=== PATIENT | male | born 1975 | race African-American/Black ===

== ENCOUNTER 2019-11-17 22:15 | Inpatient (IN) ==
[2019-11-17] MEDS ORDERED: SODIUM CHLORIDE 0.9% 2,000 ML IV STA (22:52)
[2019-11-17] MEDS ORDERED: ONDANSETRON 4 MG/2 ML VIAL IV PRN (22:53)
[2019-11-17] MEDS ORDERED: PANTOPRAZOLE 40 MG VIAL IV SCH (23:00)
[2019-11-17] MEDS ORDERED: LEVOFLOXACIN INJ 750 MG in PREMIX 1 EACH IV STA (23:03)
[2019-11-17 23:12] LABS: Basophils % 0.6 % (0.0-0.8); Eosinophils % 0.9 % (0.00-10.9); Hematocrit 34.7 VOL% (42.0-52.0); Hemoglobin 10.9 GM/DL (14.0-18.0); Immature Granulocytes % 3.1 %; Lymphocytes # 0.5 10*3/uL (1.4-4.0); Lymphocytes % 16.7 % (21.2-54.2); Mean Corpuscular HGB Conc 31.4 GM/DL (32-36); Mean Corpuscular Volume 79.8 FL (87-102); Mean Platelet Volume 9.8 FL (9.6-12.0); Monocytes % 10.5 % (1.7-12.7); Neutrophils % 68.2 % (38.7-73.9); Platelet Count 385 T/CUMM (130-400); Red Blood Count 4.35 MC/CUMM (3.8-5.5); Red Cell Distribution Width 14.6 % (9.3-17.3); White Blood Count 3.2 T/CUMM (4-12)
[2019-11-17] MEDS: ENOXAPARIN 40 MG/0.4 ML SYRINGE SUBCUT SCH (23:15)
[2019-11-17] MEDS ORDERED: cefTRIAXone 2,000 MG in SYRINGE 1 EACH IV STA (23:21)
[2019-11-17 23:23] LABS: Alanine Aminotransferase 42 U/L (16-61); Albumin 1.4 G/DL (3.4-5.0); Alkaline Phosphatase 116 U/L (45-117); Aspartate Amino Transferase 67 U/L (0-37); Bilirubin,Total < 0.39 MG/DL (0.2-1.0); Blood Urea Nitrogen 15 MG/DL (7-18); Calcium 8.2 MG/DL (8.5-10.1); Estimated Glom Filtration Rate 115 ML/MIN; Ferritin 793.7 ng/ml (26-388); Glucose 118 MG/DL (74-106); Osmolality,Calculated 269.2 MOS/KG (273-304); Total Protein 7.1 G/DL (6.4-8.3)
[2019-11-17] MEDS ORDERED: MAGNESIUM SULF RIDER 2 GM in PREMIX 1 EACH IV ONE (23:26)
[2019-11-17 23:27] LABS: Apearance,Urine CLEAR (Clear); Bilirubin,Urine Negative (Negative); Blood, Urine Negative (Negative); Glucose,Urine (UA) Negative (Negative); Ketones,Urine Negative (Negative); Mucus,Urine Occasional /LPF (Occasional); Nitrite,Urine Negative (Negative); Protein,Urine 30 MG/DL; RBC,Urine 1 /HPF (0-4); Renal Epithelial Cells,Urine Occasional /HPF (<1); Squamous Epithelial Cell,Urine Occasional /HPF (0-10); Urine Color Yellow (Yellow); Urine Specific Gravity 1.024 (1.001-1.035); WBC,Urine 4 /HPF (0-6)
[2019-11-17 23:54] LABS: Allen Test Positive
[2019-11-17 23:55] LABS: ABG HCO3 22.6 MMOL/L (20-26); ABG Oxygen Saturation 89.3 % (95-100); ABG PH 7.444 (7.35-7.45); ABG PO2 59.4 MM HG (80-95); ABG TCO2 19.2 MMOL/L (23-27)
[2019-11-18 00:20] LABS: Hepatitis B Core IgM Quant 0.13 Index; Hepatitis B Surface Ag Quant < 0.10 Index; Hepatitis B Surface Ag Result Negative (Negative); Hepatitis C Virus Ab Quant 0.19 Index; Hepatitis C Virus Ab Result Negative (Negative)
[2019-11-18] MEDS: LACTATED RINGERS 1,000 ML IV SCH ×3 (01:02→17:45)
[2019-11-18] MEDS: ACETAMINOPHEN 325 MG TABLET PO PRN ×2 (01:10→13:29)
[2019-11-18] MEDS: POTASSIUM CHLORIDE RIDER 10 MEQ in PREMIX 1 EACH IV SCH ×4 (01:55→04:57)
[2019-11-18 05:33] LABS: Basophils % 0.4 % (0.0-0.8); Eosinophils % 0.8 % (0.00-10.9); Hematocrit 31.8 VOL% (42.0-52.0); Hemoglobin 9.9 GM/DL (14.0-18.0); Immature Granulocytes % 3.6 %; Immature Granulocytes Absolute 0.09 #; Lymphocytes # 0.3 10*3/uL (1.4-4.0); Lymphocytes % 13.4 % (21.2-54.2); Mean Corpuscular HGB Conc 31.1 GM/DL (32-36); Mean Corpuscular Volume 81.1 FL (87-102); Mean Platelet Volume 9.6 FL (9.6-12.0); Monocytes % 9.7 % (1.7-12.7); Neutrophils % 72.1 % (38.7-73.9); Platelet Count 332 T/CUMM (130-400); Red Blood Count 3.92 MC/CUMM (3.8-5.5); Red Cell Distribution Width 14.8 % (9.3-17.3); White Blood Count 2.5 T/CUMM (4-12)
[2019-11-18 05:50] LABS: Albumin 1.2 G/DL (3.4-5.0); Bilirubin,Total 0.5 MG/DL (0.2-1.0); Osmolality,Calculated 267.2 MOS/KG (273-304); Total Protein 6.3 G/DL (6.4-8.3)
[2019-11-18] MEDS ORDERED: diphenhydrAMINE CAP 50 MG CAPSULE PO PRN (07:36)
[2019-11-18] MEDS ORDERED: HALOPERIDOL 5 MG TABLET PO PRN (07:36)
[2019-11-18] MEDS ORDERED: BENZTROPINE 1 MG TABLET PO PRN (07:42)
[2019-11-18] MEDS: risperiDONE 1 MG TABLET PO SCH ×2 (08:11→20:49)
[2019-11-18] MEDS: PANTOPRAZOLE 40 MG TABLET PO SCH (08:11)
[2019-11-18] MEDS: DIVALPROEX 500 MG TABLET PO SCH ×2 (08:11→20:49)
[2019-11-18] MEDS: SULFAMETHOX/TRIMETHOPRIM 800-160 MG TABLET PO SCH ×2 (08:12→20:49)
[2019-11-18] MEDS: cefTRIAXone 1,000 MG in SYRINGE 1 EACH IV SCH (12:00)
[2019-11-18] MEDS: CLORAZEPATE 7.5 MG TABLET PO PRN (13:20)
[2019-11-18] MEDS: MORPHINE 4 MG/1 ML VIAL IV PRN ×2 (14:00→22:29)
[2019-11-18] MEDS: HALOPERIDOL 5 MG TABLET PO PRN (21:30)
[2019-11-19] MEDS: LACTATED RINGERS 1,000 ML IV SCH ×5 (00:11→23:21)
[2019-11-19] MEDS: ENOXAPARIN 40 MG/0.4 ML SYRINGE SUBCUT SCH ×2 (00:27→23:03)
[2019-11-19] MEDS: ACETAMINOPHEN 325 MG TABLET PO PRN ×3 (00:29→19:17)
[2019-11-19] MEDS: LEVOFLOXACIN INJ 750 MG in PREMIX 1 EACH IV SCH ×2 (00:32→23:21)
[2019-11-19] MEDS: LORazepam 2 MG/1 ML VIAL IV PRN (00:32)
[2019-11-19 03:46] LABS: Basophils % 0.3 % (0.0-0.8); Eosinophils % 1.1 % (0.00-10.9); Hematocrit 26.3 VOL% (42.0-52.0); Hemoglobin 8.3 GM/DL (14.0-18.0); Immature Granulocytes % 5.3 %; Immature Granulocytes Absolute 0.19 #; Lymphocytes # 0.5 10*3/uL (1.4-4.0); Lymphocytes % 13.1 % (21.2-54.2); Mean Corpuscular HGB Conc 31.6 GM/DL (32-36); Mean Corpuscular Volume 79.7 FL (87-102); Mean Platelet Volume 9.8 FL (9.6-12.0); Monocytes % 6.7 % (1.7-12.7); Neutrophils % 73.5 % (38.7-73.9); Platelet Count 272 T/CUMM (130-400); White Blood Count 3.6 T/CUMM (4-12)
[2019-11-19 04:16] LABS: Alanine Aminotransferase 25 U/L (16-61); Alkaline Phosphatase 88 U/L (45-117); Aspartate Amino Transferase 47 U/L (0-37); Bilirubin,Total < 0.39 MG/DL (0.2-1.0); Blood Urea Nitrogen 11 MG/DL (7-18); Calcium 7.8 MG/DL (8.5-10.1); Estimated Glom Filtration Rate 134 ML/MIN; Glucose 109 MG/DL (74-106); Osmolality,Calculated 269.1 MOS/KG (273-304); Total Protein 5.6 G/DL (6.4-8.3)
[2019-11-19 04:44] LABS: Band Neutrophils 1 % (0-10); Eosinophils 1 % (0-10); Hypochromasia 1+; Lymphocytes 13 % (20-55); Platelet Estimate Normal; Segmented Neutrophils 80 % (50-85); Total Cells Counted 100
[2019-11-19 04:45] LABS: Ovalocytes 1+; Polychromasia Few
[2019-11-19] MEDS: risperiDONE 1 MG TABLET PO SCH ×2 (08:00→21:00)
[2019-11-19] MEDS: DIVALPROEX 500 MG TABLET PO SCH ×2 (08:00→21:00)
[2019-11-19] MEDS: PANTOPRAZOLE 40 MG TABLET PO SCH (08:00)
[2019-11-19] MEDS: SULFAMETHOX/TRIMETHOPRIM 800-160 MG TABLET PO SCH ×2 (08:00→21:00)
[2019-11-19] MEDS: CLORAZEPATE 7.5 MG TABLET PO PRN ×2 (09:12→21:00)
[2019-11-19] MEDS: MORPHINE 4 MG/1 ML VIAL IV PRN ×2 (09:45→21:07)
[2019-11-19] MEDS: cefTRIAXone 1,000 MG in SYRINGE 1 EACH IV SCH (12:53)
[2019-11-19] MEDS ORDERED: cefTRIAXone 1,000 MG in SYRINGE 1 EACH IV ONE (16:00)
[2019-11-19 16:46] LABS: % CD4 (T Cells) 3 % (32-64); % CD8 (T Cells) 68 % (13-40); 4/8 Ratio 0.1 (>=0.9)
[2019-11-19 17:35] LABS: % Iron Saturation 5.4 % (18-50)
[2019-11-19] MEDS: ZINC GLUCONATE 50 MG TABLET PO SCH (17:56)
[2019-11-19] MEDS: BIKTARVY PO SCH (21:00)
[2019-11-19] MEDS: MONTELUKAST 10 MG TABLET PO SCH (21:00)
[2019-11-19] MEDS: HALOPERIDOL 5 MG TABLET PO PRN (21:00)
[2019-11-19] MEDS: FERROUS SULFATE 325 MG TABLET PO SCH (21:00)
[2019-11-19] MEDS ORDERED: IBUPROFEN 600 MG TABLET PO ONE (22:00)
[2019-11-19] MEDS ORDERED: ACETAMINOPHEN 325 MG TABLET PO ONE (22:01)
[2019-11-20] MEDS: NOREPINEPHRINE 8 MG in SODIUM CHLORIDE 0.9% 242 ML IV PRN (03:43)
[2019-11-20 06:25] LABS: Basophils % 0.3 % (0.0-0.8); Eosinophils % 0.5 % (0.00-10.9); Hematocrit 28.2 VOL% (42.0-52.0); Hemoglobin 8.9 GM/DL (14.0-18.0); Immature Granulocytes Absolute 0.27 #; Lymphocytes # 0.4 10*3/uL (1.4-4.0); Lymphocytes % 10.1 % (21.2-54.2); Mean Corpuscular HGB Conc 31.6 GM/DL (32-36); Mean Corpuscular Volume 81.3 FL (87-102); Mean Platelet Volume 9.3 FL (9.6-12.0); Monocytes % 7.8 % (1.7-12.7); Neutrophils % 74.3 % (38.7-73.9); Platelet Count 281 T/CUMM (130-400); Red Blood Count 3.47 MC/CUMM (3.8-5.5); White Blood Count 3.9 T/CUMM (4-12)
[2019-11-20] MEDS: LACTATED RINGERS 1,000 ML IV SCH ×4 (06:37→18:09)
[2019-11-20 06:40] LABS: INR 1.3; PT Patient Result 13.5 SECS (9.8-11.9)
[2019-11-20 06:55] LABS: Triglycerides 96 MG/DL (2-150); Troponin I < 0.015 NG/ML (0.00-0.045)
[2019-11-20 06:56] LABS: Alanine Aminotransferase 21 U/L (16-61); Alkaline Phosphatase 90 U/L (45-117); Aspartate Amino Transferase 40 U/L (0-37); Bilirubin,Total < 0.39 MG/DL (0.2-1.0); Blood Urea Nitrogen 9 MG/DL (7-18); Calcium 8.5 MG/DL (8.5-10.1); Estimated Glom Filtration Rate 161 ML/MIN; Glucose 93 MG/DL (74-106); Total Protein 5.6 G/DL (6.4-8.3)
[2019-11-20 07:39] LABS: Sedimentation Rate-Westergren 121 MM/HR (0-15)
[2019-11-20 07:46] LABS: Folate 7.8 NG/ML (5.4-24.0)
[2019-11-20] MEDS: risperiDONE 1 MG TABLET PO SCH ×2 (08:10→14:42)
[2019-11-20] MEDS: ZINC GLUCONATE 50 MG TABLET PO SCH (08:10)
[2019-11-20] MEDS: PANTOPRAZOLE 40 MG TABLET PO SCH (08:10)
[2019-11-20] MEDS: SULFAMETHOX/TRIMETHOPRIM 800-160 MG TABLET PO SCH ×2 (08:10→20:42)
[2019-11-20] MEDS: DIVALPROEX 500 MG TABLET PO SCH ×2 (08:10→20:42)
[2019-11-20] MEDS: MONTELUKAST 10 MG TABLET PO SCH ×2 (08:10→20:42)
[2019-11-20] MEDS: FERROUS SULFATE 325 MG TABLET PO SCH ×2 (08:11→20:42)
[2019-11-20] MEDS ORDERED: cefTRIAXone 2,000 MG in SYRINGE 1 EACH IV SCH (09:00)
[2019-11-20 11:42] LABS: Lymphocytes 9 % (20-55); Polychromasia Few; Segmented Neutrophils 86 % (50-85); Total Cells Counted 100
[2019-11-20 11:44] LABS: Macrocytosis 1+; Microcytosis 1+; Platelet Estimate Adequate
[2019-11-20] MEDS: ACETAMINOPHEN 325 MG TABLET PO PRN (14:38)
[2019-11-20] MEDS: MORPHINE 4 MG/1 ML VIAL IV PRN (14:49)
[2019-11-20] MEDS ORDERED: IBUPROFEN 600 MG TABLET PO ONE (15:16)
[2019-11-20] MEDS: LORazepam 2 MG/1 ML VIAL IV PRN (15:26)
[2019-11-20] MEDS ORDERED: FUROSEMIDE 20 MG/2 ML VIAL IV ONE (15:30)
[2019-11-20] MEDS: BIKTARVY PO SCH (20:42)
[2019-11-20] MEDS: CLORAZEPATE 7.5 MG TABLET PO SCH (22:08)
[2019-11-20] MEDS: IBUPROFEN 600 MG TABLET PO SCH (22:11)
[2019-11-20] MEDS: LEVOFLOXACIN INJ 750 MG in PREMIX 1 EACH IV SCH (22:23)
[2019-11-20] MEDS: ENOXAPARIN 40 MG/0.4 ML SYRINGE SUBCUT SCH (22:23)
[2019-11-21 04:42] LABS: Basophils % 0.2 % (0.0-0.8); Eosinophils # 0.1 10*3/uL (0.0-0.87); Hematocrit 32.3 VOL% (42.0-52.0); Hemoglobin 9.6 GM/DL (14.0-18.0); Immature Granulocytes % 7.1 %; Immature Granulocytes Absolute 0.33 #; Lymphocytes # 0.5 10*3/uL (1.4-4.0); Lymphocytes % 11.4 % (21.2-54.2); Mean Corpuscular HGB Conc 29.7 GM/DL (32-36); Mean Corpuscular Volume 83.9 FL (87-102); Mean Platelet Volume 9.6 FL (9.6-12.0); Monocytes % 4.7 % (1.7-12.7); Neutrophils % 73.6 % (38.7-73.9); Platelet Count 289 T/CUMM (130-400); Red Blood Count 3.85 MC/CUMM (3.8-5.5); Red Cell Distribution Width 15.4 % (9.3-17.3); White Blood Count 4.6 T/CUMM (4-12)
[2019-11-21] MEDS: CLORAZEPATE 7.5 MG TABLET PO SCH ×3 (04:46→20:15)
[2019-11-21] MEDS: NOREPINEPHRINE 8 MG in SODIUM CHLORIDE 0.9% 242 ML IV PRN (05:15)
[2019-11-21] MEDS: IBUPROFEN 600 MG TABLET PO SCH ×3 (06:00→22:35)
[2019-11-21 06:02] LABS: Eosinophils 5 % (0-10); Lymphocytes 11 % (20-55); Segmented Neutrophils 78 % (50-85); Total Cells Counted 100
[2019-11-21 06:03] LABS: Anisocytosis 1+; Ovalocytes 1+; Platelet Estimate Normal
[2019-11-21] MEDS: LACTATED RINGERS 1,000 ML IV SCH ×4 (07:08→20:28)
[2019-11-21 07:10] LABS: Alanine Aminotransferase 15 U/L (16-61); Albumin 0.9 G/DL (3.4-5.0); Alkaline Phosphatase 80 U/L (45-117); Aspartate Amino Transferase 36 U/L (0-37); Bilirubin,Total < 0.39 MG/DL (0.2-1.0); Blood Urea Nitrogen 9 MG/DL (7-18); Calcium 8.7 MG/DL (8.5-10.1); Estimated Glom Filtration Rate 161 ML/MIN; Glucose 97 MG/DL (74-106); Osmolality,Calculated 271.8 MOS/KG (273-304); Total Protein 5.3 G/DL (6.4-8.3)
[2019-11-21] MEDS: MONTELUKAST 10 MG TABLET PO SCH ×2 (08:38→20:16)
[2019-11-21] MEDS: SULFAMETHOX/TRIMETHOPRIM 800-160 MG TABLET PO SCH ×2 (08:38→20:15)
[2019-11-21] MEDS: FERROUS SULFATE 325 MG TABLET PO SCH ×2 (08:38→20:15)
[2019-11-21] MEDS: PANTOPRAZOLE 40 MG TABLET PO SCH (08:38)
[2019-11-21] MEDS: ZINC GLUCONATE 50 MG TABLET PO SCH (08:38)
[2019-11-21] MEDS: BIKTARVY PO SCH (08:38)
[2019-11-21] MEDS: DIVALPROEX 500 MG TABLET PO SCH ×2 (08:38→20:15)
[2019-11-21] MEDS: LORazepam 2 MG/1 ML VIAL IV PRN (15:49)
[2019-11-21] MEDS ORDERED: POTASSIUM CHLORIDE 20 MEQ TABLET PO ONE (16:55)
[2019-11-21] MEDS: ACETAMINOPHEN 325 MG TABLET PO PRN (17:25)
[2019-11-21] MEDS: ENOXAPARIN 40 MG/0.4 ML SYRINGE SUBCUT SCH (22:35)
[2019-11-21] MEDS: MORPHINE 4 MG/1 ML VIAL IV PRN (22:35)
[2019-11-21] MEDS: LEVOFLOXACIN INJ 750 MG in PREMIX 1 EACH IV SCH (22:45)
[2019-11-22] MEDS ORDERED: ETOMIDATE 20 MG/10 ML VIAL IV ONE ×4 (02:24→08:58)
[2019-11-22] MEDS ORDERED: SUCCINYLCHOLINE 200 MG/10 ML VIAL ONE ×2 (02:24→07:10)
[2019-11-22 02:30] LABS: ABG Base Excess 2.7 MMOL/L (-2.5-2.5); ABG HCO3 26.7 MMOL/L (20-26); ABG Oxygen Saturation 89.2 % (95-100); ABG PCO2 35.6 MM HG (35-48); ABG PH 7.474 (7.35-7.45); ABG PO2 55.9 MM HG (80-95); ABG TCO2 23.9 MMOL/L (23-27); Allen Test Positive; Pt O2 Delivery Device Other
[2019-11-22] MEDS: MORPHINE 4 MG/1 ML VIAL IV PRN (03:40)
[2019-11-22] MEDS: LORazepam 2 MG/1 ML VIAL IV PRN ×4 (03:50→19:56)
[2019-11-22] MEDS ORDERED: LORazepam 2 MG/1 ML VIAL IV ONE (05:00)
[2019-11-22] MEDS: CLORAZEPATE 7.5 MG TABLET PO SCH (05:20)
[2019-11-22] MEDS: IBUPROFEN 600 MG TABLET PO SCH ×3 (06:05→23:45)
[2019-11-22 06:11] LABS: Basophils % 0.1 % (0.0-0.8); Eosinophils # 0.2 10*3/uL (0.0-0.87); Eosinophils % 2.3 % (0.00-10.9); Hematocrit 33.2 VOL% (42.0-52.0); Hemoglobin 10.3 GM/DL (14.0-18.0); Immature Granulocytes % 6.8 %; Immature Granulocytes Absolute 0.48 #; Lymphocytes # 0.4 10*3/uL (1.4-4.0); Lymphocytes % 5.9 % (21.2-54.2); Mean Corpuscular Volume 80.6 FL (87-102); Neutrophils % 81.9 % (38.7-73.9); Platelet Count 318 T/CUMM (130-400); Red Blood Count 4.12 MC/CUMM (3.8-5.5); Red Cell Distribution Width 15.7 % (9.3-17.3); White Blood Count 7.1 T/CUMM (4-12)
[2019-11-22 06:35] LABS: Alanine Aminotransferase 16 U/L (16-61); Albumin 0.9 G/DL (3.4-5.0); Alkaline Phosphatase 106 U/L (45-117); Aspartate Amino Transferase 49 U/L (0-37); Blood Urea Nitrogen 10 MG/DL (7-18); Calcium 8.8 MG/DL (8.5-10.1); Estimated Glom Filtration Rate 140 ML/MIN; Ferritin 950.3 ng/ml (26-388); Glucose 78 MG/DL (74-106); Total Protein 5.8 G/DL (6.4-8.3); Triglycerides 93 MG/DL (2-150); Troponin I < 0.015 NG/ML (0.00-0.045)
[2019-11-22 06:54] LABS: INR 1.2; PT Patient Result 12.7 SECS (9.8-11.9)
[2019-11-22 07:36] LABS: Sedimentation Rate-Westergren 110 MM/HR (0-15)
[2019-11-22] MEDS: ZINC GLUCONATE 50 MG TABLET PO SCH (08:14)
[2019-11-22] MEDS: SULFAMETHOX/TRIMETHOPRIM 800-160 MG TABLET PO SCH ×2 (08:14→20:04)
[2019-11-22] MEDS: PANTOPRAZOLE 40 MG TABLET PO SCH (08:14)
[2019-11-22] MEDS: MONTELUKAST 10 MG TABLET PO SCH ×2 (08:14→20:04)
[2019-11-22] MEDS ORDERED: SUCCINYLCHOLINE 200 MG/10 ML VIAL IV ONE ×2 (08:15→08:57)
[2019-11-22] MEDS: DIVALPROEX 500 MG TABLET PO SCH ×2 (08:16→20:04)
[2019-11-22] MEDS: FERROUS SULFATE 325 MG TABLET PO SCH ×2 (08:17→20:04)
[2019-11-22] MEDS: BIKTARVY PO SCH (08:17)
[2019-11-22 08:24] LABS: Band Neutrophils 19 % (0-10); Eosinophils 5 % (0-10); Lymphocytes 4 % (20-55); Segmented Neutrophils 70 % (50-85); Total Cells Counted 100
[2019-11-22 08:25] LABS: Anisocytosis 2+; Burr Cells 1+; Macrocytosis Slight; Ovalocytes Few; Platelet Estimate Normal
[2019-11-22 09:56] LABS: ABG Base Excess -0.5 MMOL/L (-2.5-2.5); ABG HCO3 23.9 MMOL/L (20-26); ABG Oxygen Saturation 89.1 % (95-100); ABG PCO2 48.3 MM HG (35-48); ABG PH 7.335 (7.35-7.45); ABG PO2 64.8 MM HG (80-95); ABG TCO2 23.7 MMOL/L (23-27)
[2019-11-22] MEDS: LACTATED RINGERS 1,000 ML IV SCH ×2 (12:00→21:28)
[2019-11-22 12:53] LABS: ABG Base Excess 1.1 MMOL/L (-2.5-2.5); ABG HCO3 25.4 MMOL/L (20-26); ABG Oxygen Saturation 97.7 % (95-100); ABG TCO2 23.8 MMOL/L (23-27); Allen Test Positive; Pt O2 Delivery Device Ventilator
[2019-11-22] MEDS ORDERED: LACTATED RINGERS 1,000 ML IV ONE (18:50)
[2019-11-22] MEDS: ALBUTEROL/IPRATROPIUM 3 ML NEB RESP TX SCH (19:35)
[2019-11-22] MEDS: MIDAZOLAM 100 MG in SODIUM CHLORIDE 0.9% 80 ML IV PRN (20:50)
[2019-11-22] MEDS ORDERED: MIDAZOLAM 2 MG/2 ML VIAL IV ONE (21:36)
[2019-11-22] MEDS: ROCURONIUM 500 MG in SODIUM CHLORIDE 0.9% 500 ML IV PRN (22:20)
[2019-11-22] MEDS: LEVOFLOXACIN INJ 750 MG in PREMIX 1 EACH IV SCH (23:15)
[2019-11-22] MEDS: ENOXAPARIN 40 MG/0.4 ML SYRINGE SUBCUT SCH (23:45)
[2019-11-23] MEDS: ALBUTEROL/IPRATROPIUM 3 ML NEB RESP TX SCH ×4 (01:48→19:49)
[2019-11-23 04:04] LABS: Basophils % 0.2 % (0.0-0.8); Eosinophils # 0.2 10*3/uL (0.0-0.87); Eosinophils % 4.6 % (0.00-10.9); Hematocrit 26.2 VOL% (42.0-52.0); Immature Granulocytes % 6.9 %; Lymphocytes # 0.3 10*3/uL (1.4-4.0); Lymphocytes % 6.5 % (21.2-54.2); Mean Corpuscular HGB Conc 30.5 GM/DL (32-36); Mean Corpuscular Volume 80.9 FL (87-102); Mean Platelet Volume 9.4 FL (9.6-12.0); Monocytes % 4.2 % (1.7-12.7); Neutrophils % 77.6 % (38.7-73.9); Platelet Count 288 T/CUMM (130-400); Red Blood Count 3.24 MC/CUMM (3.8-5.5); Red Cell Distribution Width 15.7 % (9.3-17.3); White Blood Count 4.3 T/CUMM (4-12)
[2019-11-23 04:29] LABS: Alanine Aminotransferase 11 U/L (16-61); Albumin 0.8 G/DL (3.4-5.0); Alkaline Phosphatase 97 U/L (45-117); Aspartate Amino Transferase 45 U/L (0-37); Bilirubin,Total < 0.39 MG/DL (0.2-1.0); Blood Urea Nitrogen 15 MG/DL (7-18); Calcium 8.6 MG/DL (8.5-10.1); Estimated Glom Filtration Rate 133 ML/MIN; Glucose 85 MG/DL (74-106); Osmolality,Calculated 276.5 MOS/KG (273-304); Total Protein 5.2 G/DL (6.4-8.3)
[2019-11-23 04:46] LABS: ABG Base Excess -0.2 MMOL/L (-2.5-2.5); ABG HCO3 24.5 MMOL/L (20-26); ABG PCO2 39.9 MM HG (35-48); ABG PH 7.406 (7.35-7.45); ABG PO2 121.4 MM HG (80-95); ABG TCO2 25.7 MMOL/L (23-27)
[2019-11-23 04:47] LABS: Allen Test Positive; Pt O2 Delivery Device Ventilator
[2019-11-23 04:49] LABS: Eosinophils 1 % (0-10); Lymphocytes 9 % (20-55); Segmented Neutrophils 84 % (50-85); Total Cells Counted 100
[2019-11-23 04:50] LABS: Anisocytosis 1+; Ovalocytes 1+; Platelet Estimate Normal
[2019-11-23] MEDS: IBUPROFEN 600 MG TABLET PO SCH (06:21)
[2019-11-23] MEDS: NOREPINEPHRINE 8 MG in SODIUM CHLORIDE 0.9% 242 ML IV PRN (06:25)
[2019-11-23] MEDS: BIKTARVY PO SCH (08:00)
[2019-11-23] MEDS: OMEPRAZOLE ODT 20 MG TABLET NG SCH (08:01)
[2019-11-23] MEDS: FERROUS SULFATE 325 MG TABLET PO SCH ×2 (08:01→20:15)
[2019-11-23] MEDS: DIVALPROEX 500 MG TABLET PO SCH ×2 (08:01→20:15)
[2019-11-23] MEDS: SULFAMETHOX/TRIMETHOPRIM 800-160 MG TABLET PO SCH ×2 (08:01→20:15)
[2019-11-23] MEDS: MONTELUKAST 10 MG TABLET PO SCH ×2 (08:01→20:15)
[2019-11-23] MEDS: ZINC GLUCONATE 50 MG TABLET PO SCH (08:01)
[2019-11-23] MEDS ORDERED: IBUPROFEN 600 MG TABLET PO PRN (09:15)
[2019-11-23] MEDS: INSULIN LISPRO 100 UNIT/ML SUBCUT SCH ×2 (11:45→18:13)
[2019-11-23] MEDS: LACTATED RINGERS 1,000 ML IV SCH (13:56)
[2019-11-23] MEDS: MIDAZOLAM 100 MG in SODIUM CHLORIDE 0.9% 80 ML IV PRN (13:57)
[2019-11-23] MEDS: ROCURONIUM 500 MG in SODIUM CHLORIDE 0.9% 500 ML IV PRN (22:18)
[2019-11-23] MEDS: LEVOFLOXACIN INJ 750 MG in PREMIX 1 EACH IV SCH (23:50)
[2019-11-23] MEDS: ENOXAPARIN 40 MG/0.4 ML SYRINGE SUBCUT SCH (23:55)
[2019-11-24] MEDS: INSULIN LISPRO 100 UNIT/ML SUBCUT SCH ×4 (00:41→17:45)
[2019-11-24] MEDS: LACTATED RINGERS 1,000 ML IV SCH ×3 (01:20→14:33)
[2019-11-24] MEDS: ALBUTEROL/IPRATROPIUM 3 ML NEB RESP TX SCH ×4 (01:48→19:30)
[2019-11-24 03:56] LABS: ABG Base Excess -0.4 MMOL/L (-2.5-2.5); ABG HCO3 24.1 MMOL/L (20-26); ABG Oxygen Saturation 99.5 % (95-100); ABG PCO2 46.5 MM HG (35-48); ABG PH 7.346 (7.35-7.45); ABG TCO2 23.9 MMOL/L (23-27); Allen Test Positive; Pt O2 Delivery Device Ventilator
[2019-11-24 06:05] LABS: Eosinophils # 0.2 10*3/uL (0.0-0.87); Eosinophils % 4.1 % (0.00-10.9); Hemoglobin 7.6 GM/DL (14.0-18.0); Immature Granulocytes % 4.6 %; Immature Granulocytes Absolute 0.18 #; Lymphocytes # 0.3 10*3/uL (1.4-4.0); Lymphocytes % 7.7 % (21.2-54.2); Mean Corpuscular HGB Conc 30.4 GM/DL (32-36); Mean Corpuscular Volume 83.3 FL (87-102); Mean Platelet Volume 9.9 FL (9.6-12.0); Monocytes % 4.8 % (1.7-12.7); Neutrophils % 78.8 % (38.7-73.9); Platelet Count 260 T/CUMM (130-400); Red Cell Distribution Width 16.1 % (9.3-17.3); White Blood Count 3.9 T/CUMM (4-12)
[2019-11-24 06:19] LABS: PT Patient Result 11.2 SECS (9.8-11.9)
[2019-11-24 06:27] LABS: Band Neutrophils 1 % (0-10); Eosinophils 5 % (0-10); Lymphocytes 7 % (20-55); Segmented Neutrophils 83 % (50-85); Total Cells Counted 100
[2019-11-24 06:28] LABS: Alanine Aminotransferase 12 U/L (16-61); Albumin 0.8 G/DL (3.4-5.0); Alkaline Phosphatase 94 U/L (45-117); Aspartate Amino Transferase 35 U/L (0-37); Blood Urea Nitrogen 17 MG/DL (7-18); Calcium 8.6 MG/DL (8.5-10.1); Estimated Glom Filtration Rate 109 ML/MIN; Ferritin 696.3 ng/ml (26-388); Glucose 94 MG/DL (74-106); Hypochromasia 2+; Osmolality,Calculated 282.3 MOS/KG (273-304); Ovalocytes Slight; Platelet Estimate Adequate; Total Protein 5.1 G/DL (6.4-8.3); Troponin I < 0.015 NG/ML (0.00-0.045)
[2019-11-24 07:19] LABS: Sedimentation Rate-Westergren 132 MM/HR (0-15)
[2019-11-24] MEDS: ZINC GLUCONATE 50 MG TABLET PO SCH (08:02)
[2019-11-24] MEDS: DIVALPROEX 500 MG TABLET PO SCH ×2 (08:02→20:30)
[2019-11-24] MEDS: FERROUS SULFATE 325 MG TABLET PO SCH ×2 (08:03→20:30)
[2019-11-24] MEDS: MONTELUKAST 10 MG TABLET PO SCH ×2 (08:03→20:30)
[2019-11-24] MEDS: OMEPRAZOLE ODT 20 MG TABLET NG SCH (08:03)
[2019-11-24] MEDS: SULFAMETHOX/TRIMETHOPRIM 800-160 MG TABLET PO SCH ×2 (08:03→20:30)
[2019-11-24] MEDS: BIKTARVY PO SCH (08:03)
[2019-11-24] MEDS: HEPARIN DRIP 25,000 UNITS/500 ML PREMIX IV SCH (08:51)
[2019-11-24] MEDS: MIDAZOLAM 100 MG in SODIUM CHLORIDE 0.9% 80 ML IV PRN (08:57)
[2019-11-24] MEDS ORDERED: HEPARIN 5,000 UNIT/1 ML VIAL IV ONE (22:30)
[2019-11-24] MEDS: LEVOFLOXACIN INJ 750 MG in PREMIX 1 EACH IV SCH (23:04)
[2019-11-24] MEDS: ROCURONIUM 500 MG in SODIUM CHLORIDE 0.9% 500 ML IV PRN (23:45)
[2019-11-25] MEDS: INSULIN LISPRO 100 UNIT/ML SUBCUT SCH ×5 (00:23→23:31)
[2019-11-25] MEDS: ALBUTEROL/IPRATROPIUM 3 ML NEB RESP TX SCH ×4 (01:20→19:42)
[2019-11-25] MEDS: LACTATED RINGERS 1,000 ML IV SCH ×2 (03:18→16:49)
[2019-11-25 04:13] LABS: ABG Base Excess 1.1 MMOL/L (-2.5-2.5); ABG HCO3 25.4 MMOL/L (20-26); ABG PCO2 46.7 MM HG (35-48); ABG PH 7.366 (7.35-7.45); ABG TCO2 25.1 MMOL/L (23-27); Allen Test Positive; Pt O2 Delivery Device Ventilator
[2019-11-25 04:34] LABS: Basophils % 0.2 % (0.0-0.8); Eosinophils # 0.2 10*3/uL (0.0-0.87); Eosinophils % 3.5 % (0.00-10.9); Hematocrit 24.7 VOL% (42.0-52.0); Hemoglobin 7.3 GM/DL (14.0-18.0); Immature Granulocytes % 7.5 %; Immature Granulocytes Absolute 0.36 #; Lymphocytes # 0.4 10*3/uL (1.4-4.0); Lymphocytes % 9.1 % (21.2-54.2); Mean Corpuscular HGB Conc 29.6 GM/DL (32-36); Mean Platelet Volume 10.2 FL (9.6-12.0); Monocytes % 7.5 % (1.7-12.7); NRBC # 0.03 10*3/uL; Neutrophils % 72.2 % (38.7-73.9); Platelet Count 261 T/CUMM (130-400); Red Blood Count 2.94 MC/CUMM (3.8-5.5); White Blood Count 4.8 T/CUMM (4-12)
[2019-11-25 04:43] LABS: Alanine Aminotransferase 14 U/L (16-61); Albumin 0.8 G/DL (3.4-5.0); Alkaline Phosphatase 107 U/L (45-117); Aspartate Amino Transferase 45 U/L (0-37); Bilirubin,Total < 0.39 MG/DL (0.2-1.0); Blood Urea Nitrogen 19 MG/DL (7-18); Calcium 8.9 MG/DL (8.5-10.1); Estimated Glom Filtration Rate 109 ML/MIN; Glucose 89 MG/DL (74-106); Osmolality,Calculated 277.5 MOS/KG (273-304); Total Protein 5.6 G/DL (6.4-8.3)
[2019-11-25 05:05] LABS: Band Neutrophils 2 % (0-10); Hypochromasia 2+; Lymphocytes 11 % (20-55); Microcytosis Slight; Platelet Estimate Adequate; Segmented Neutrophils 82 % (50-85); Total Cells Counted 100
[2019-11-25 05:06] LABS: Ovalocytes Slight
[2019-11-25] MEDS ORDERED: HEPARIN 5,000 UNIT/1 ML VIAL IV ONE ×2 (05:29→18:46)
[2019-11-25] MEDS: MIDAZOLAM 100 MG in SODIUM CHLORIDE 0.9% 80 ML IV PRN (06:43)
[2019-11-25] MEDS: SULFAMETHOX/TRIMETHOPRIM 800-160 MG TABLET PO SCH (08:15)
[2019-11-25] MEDS: BIKTARVY PO SCH (08:15)
[2019-11-25] MEDS: OMEPRAZOLE ODT 20 MG TABLET NG SCH (08:15)
[2019-11-25] MEDS: MONTELUKAST 10 MG TABLET PO SCH ×2 (08:15→21:39)
[2019-11-25] MEDS: ZINC GLUCONATE 50 MG TABLET PO SCH (08:15)
[2019-11-25] MEDS: FERROUS SULFATE 325 MG TABLET PO SCH ×2 (08:15→21:39)
[2019-11-25] MEDS: DIVALPROEX 500 MG TABLET PO SCH (08:15)
[2019-11-25] MEDS: HEPARIN DRIP 25,000 UNITS/500 ML PREMIX IV SCH (09:26)
[2019-11-25] MEDS ORDERED: SODIUM CHLORIDE 0.9% 1,000 ML IV PRN (09:39)
[2019-11-25] MEDS: FLUCONAZOLE INJ 400 MG in PREMIX 1 EACH IV SCH (10:49)
[2019-11-25] MEDS ORDERED: methylPREDNISolone SOD SUC 40 MG/1 ML VIAL IV SCH (14:00)
[2019-11-25] MEDS: DEXTROSE 5% IV SCH ×2 (14:10→19:38)
[2019-11-25] MEDS: SULFAMETH IV SCH ×2 (14:10→19:38)
[2019-11-25] MEDS: TRIMETH IV SCH ×2 (14:10→19:38)
[2019-11-25] MEDS: ROCURONIUM 500 MG in SODIUM CHLORIDE 0.9% 500 ML IV PRN (18:50)
[2019-11-25] MEDS: VALPROIC ACID 250 MG/5 ML UDCUP PO SCH (22:50)
[2019-11-25] MEDS: LEVOFLOXACIN INJ 750 MG in PREMIX 1 EACH IV SCH (23:10)
[2019-11-26] MEDS: TRIMETH IV SCH ×4 (01:45→18:33)
[2019-11-26] MEDS: DEXTROSE 5% IV SCH ×4 (01:45→18:33)
[2019-11-26] MEDS: SULFAMETH IV SCH ×4 (01:45→18:33)
[2019-11-26] MEDS: ALBUTEROL/IPRATROPIUM 3 ML NEB RESP TX SCH ×2 (01:50→11:11)
[2019-11-26] MEDS: VALPROIC ACID 250 MG/5 ML UDCUP PO SCH ×4 (03:42→20:10)
[2019-11-26 04:32] LABS: ABG Base Excess 0.4 MMOL/L (-2.5-2.5); ABG HCO3 24.8 MMOL/L (20-26); ABG Oxygen Saturation 98.8 % (95-100); ABG PCO2 39.5 MM HG (35-48); ABG PH 7.409 (7.35-7.45); ABG TCO2 23.1 MMOL/L (23-27); Allen Test Positive; Pt O2 Delivery Device Ventilator
[2019-11-26 04:51] LABS: Basophils % 0.4 % (0.0-0.8); Hematocrit 27.5 VOL% (42.0-52.0); Hemoglobin 8.3 GM/DL (14.0-18.0); Immature Granulocytes % 10.8 %; Immature Granulocytes Absolute 0.55 #; Lymphocytes # 0.4 10*3/uL (1.4-4.0); Lymphocytes % 8.4 % (21.2-54.2); Mean Corpuscular HGB Conc 30.2 GM/DL (32-36); Mean Corpuscular Volume 83.8 FL (87-102); Mean Platelet Volume 10.1 FL (9.6-12.0); NRBC # 0.06 10*3/uL; Neutrophils % 69.4 % (38.7-73.9); Platelet Count 237 T/CUMM (130-400); Red Blood Count 3.28 MC/CUMM (3.8-5.5); Red Cell Distribution Width 16.4 % (9.3-17.3); White Blood Count 5.1 T/CUMM (4-12)
[2019-11-26] MEDS: MIDAZOLAM 100 MG in SODIUM CHLORIDE 0.9% 80 ML IV PRN (05:10)
[2019-11-26 05:14] LABS: Band Neutrophils 2 % (0-10); Lymphocytes 12 % (20-55); Nucleated Red Blood Cells 3 (0-5); Platelet Estimate Adequate; Segmented Neutrophils 78 % (50-85); Total Cells Counted 100
[2019-11-26 05:15] LABS: Hypochromasia 1+; Microcytosis Slight; Ovalocytes Slight
[2019-11-26 05:19] LABS: Osmolality,Calculated 287.1 MOS/KG (273-304)
[2019-11-26] MEDS: INSULIN LISPRO 100 UNIT/ML SUBCUT SCH ×3 (05:37→18:01)
[2019-11-26] MEDS: HEPARIN DRIP 25,000 UNITS/500 ML PREMIX IV SCH (06:39)
[2019-11-26] MEDS: LACTATED RINGERS 1,000 ML IV SCH (09:10)
[2019-11-26] MEDS: BIKTARVY PO SCH (09:23)
[2019-11-26] MEDS: OMEPRAZOLE ODT 20 MG TABLET NG SCH (09:24)
[2019-11-26] MEDS: FERROUS SULFATE 325 MG TABLET PO SCH ×2 (09:24→20:10)
[2019-11-26] MEDS: ZINC GLUCONATE 50 MG TABLET PO SCH (09:24)
[2019-11-26] MEDS: MONTELUKAST 10 MG TABLET PO SCH ×2 (09:24→20:10)
[2019-11-26] MEDS ORDERED: SODIUM CHLORIDE 0.9% 1,000 ML IV PRN (09:27)
[2019-11-26] MEDS: FLUCONAZOLE INJ 400 MG in PREMIX 1 EACH IV SCH (10:44)
[2019-11-26] MEDS: ALBUTEROL INHALER 18 GM INH SCH ×3 (16:30→20:10)
[2019-11-27] MEDS: INSULIN LISPRO 100 UNIT/ML SUBCUT SCH ×4 (00:12→17:10)
[2019-11-27] MEDS: ALBUTEROL INHALER 18 GM INH SCH ×4 (00:15→19:58)
[2019-11-27] MEDS: LACTATED RINGERS 1,000 ML IV SCH ×2 (01:02→08:14)
[2019-11-27] MEDS: TRIMETH IV SCH ×4 (01:04→18:45)
[2019-11-27] MEDS: DEXTROSE 5% IV SCH ×4 (01:04→18:45)
[2019-11-27] MEDS: SULFAMETH IV SCH ×4 (01:04→18:45)
[2019-11-27] MEDS: HEPARIN DRIP 25,000 UNITS/500 ML PREMIX IV SCH ×3 (01:52→19:55)
[2019-11-27] MEDS: VALPROIC ACID 250 MG/5 ML UDCUP PO SCH ×4 (03:45→20:12)
[2019-11-27 04:48] LABS: Allen Test Positive; Pt O2 Delivery Device Ventilator
[2019-11-27 04:50] LABS: ABG Base Excess -1.1 MMOL/L (-2.5-2.5); ABG HCO3 23.4 MMOL/L (20-26); ABG PCO2 38.7 MM HG (35-48); ABG PH 7.399 (7.35-7.45); ABG PO2 74.2 MM HG (80-95); ABG TCO2 24.6 MMOL/L (23-27)
[2019-11-27] MEDS: MIDAZOLAM 100 MG in SODIUM CHLORIDE 0.9% 80 ML IV PRN (04:55)
[2019-11-27 05:16] LABS: Basophils % 0.4 % (0.0-0.8); Eosinophils # 0.1 10*3/uL (0.0-0.87); Eosinophils % 1.2 % (0.00-10.9); Hematocrit 27.3 VOL% (42.0-52.0); Hemoglobin 8.4 GM/DL (14.0-18.0); Immature Granulocytes Absolute 0.91 #; Lymphocytes # 0.6 10*3/uL (1.4-4.0); Lymphocytes % 10.2 % (21.2-54.2); Mean Corpuscular HGB Conc 30.8 GM/DL (32-36); Mean Corpuscular Volume 84.3 FL (87-102); Mean Platelet Volume 10.2 FL (9.6-12.0); Monocytes % 19.6 % (1.7-12.7); Neutrophils % 52.6 % (38.7-73.9); Platelet Count 266 T/CUMM (130-400); Red Blood Count 3.24 MC/CUMM (3.8-5.5); Red Cell Distribution Width 16.9 % (9.3-17.3); White Blood Count 5.7 T/CUMM (4-12)
[2019-11-27 05:37] LABS: Albumin 0.8 G/DL (3.4-5.0); Bilirubin,Total 0.6 MG/DL (0.2-1.0); Calcium 9.2 MG/DL (8.5-10.1); Osmolality,Calculated 286.1 MOS/KG (273-304); Total Protein 5.5 G/DL (6.4-8.3)
[2019-11-27 05:39] LABS: Alanine Aminotransferase 19 U/L (16-61); Albumin 0.8 G/DL (3.4-5.0); Alkaline Phosphatase 97 U/L (45-117); Aspartate Amino Transferase 43 U/L (0-37); Bilirubin,Direct < 0.100 MG/DL (0.0-0.20); Bilirubin,Indirect 0.3 MG/DL (0.0-1.0); Bilirubin,Total < 0.39 MG/DL (0.2-1.0); Ferritin 617.1 ng/ml (26-388); Total Protein 5.5 G/DL (6.4-8.3); Troponin I < 0.015 NG/ML (0.00-0.045)
[2019-11-27 05:44] LABS: PT Patient Result 10.9 SECS (9.8-11.9)
[2019-11-27] MEDS ORDERED: HEPARIN 5,000 UNIT/1 ML VIAL IV ONE (06:15)
[2019-11-27 06:20] LABS: Anisocytosis Slight; Band Neutrophils 4 % (0-10); Eosinophils 1 % (0-10); Lymphocytes 15 % (20-55); Macrocytosis Slight; Metamyelocytes 7 %; Myelocytes 3 %; Nucleated Red Blood Cells 1 (0-5); Platelet Estimate Normal; Promyelocytes 1 %; Segmented Neutrophils 51 % (50-85); Total Cells Counted 100
[2019-11-27 06:21] LABS: Polychromasia Few
[2019-11-27] MEDS: OMEPRAZOLE ODT 20 MG TABLET NG SCH (08:19)
[2019-11-27] MEDS: ZINC GLUCONATE 50 MG TABLET PO SCH (08:19)
[2019-11-27] MEDS: MONTELUKAST 10 MG TABLET PO SCH ×2 (08:19→20:12)
[2019-11-27] MEDS: FERROUS SULFATE 325 MG TABLET PO SCH ×2 (08:19→20:12)
[2019-11-27] MEDS: BIKTARVY PO SCH (08:20)
[2019-11-27] MEDS: FLUCONAZOLE INJ 400 MG in PREMIX 1 EACH IV SCH (08:53)
[2019-11-27] MEDS ORDERED: LEVOFLOXACIN INJ 500 MG in PREMIX 1 EACH IV SCH ×2 (09:30→13:00)
[2019-11-27 11:11] LABS: Allen Test Positive; Pt O2 Delivery Device Ventilator
[2019-11-27 11:12] LABS: ABG Base Excess 0.8 MMOL/L (-2.5-2.5); ABG HCO3 25.2 MMOL/L (20-26); ABG Oxygen Saturation 99.3 % (95-100); ABG PCO2 42.2 MM HG (35-48); ABG PH 7.394 (7.35-7.45); ABG TCO2 23.6 MMOL/L (23-27)
[2019-11-27] MEDS: methylPREDNISolone SOD SUC 40 MG/1 ML VIAL IV SCH (14:29)
[2019-11-28] MEDS: DEXTROSE 5% IV SCH ×4 (00:35→19:46)
[2019-11-28] MEDS: TRIMETH IV SCH ×4 (00:35→19:46)
[2019-11-28] MEDS: SULFAMETH IV SCH ×4 (00:35→19:46)
[2019-11-28] MEDS: INSULIN LISPRO 100 UNIT/ML SUBCUT SCH ×5 (00:43→23:47)
[2019-11-28] MEDS: ALBUTEROL INHALER 18 GM INH SCH ×4 (00:45→20:00)
[2019-11-28] MEDS: methylPREDNISolone SOD SUC 40 MG/1 ML VIAL IV SCH ×2 (03:10→14:35)
[2019-11-28] MEDS: VALPROIC ACID 250 MG/5 ML UDCUP PO SCH ×4 (03:45→21:47)
[2019-11-28 04:25] LABS: ABG Base Excess 1.3 MMOL/L (-2.5-2.5); ABG HCO3 25.6 MMOL/L (20-26); ABG Oxygen Saturation 99.3 % (95-100); ABG PCO2 48.6 MM HG (35-48); ABG PH 7.357 (7.35-7.45); ABG TCO2 25.1 MMOL/L (23-27)
[2019-11-28 05:25] LABS: Basophils % 0.6 % (0.0-0.8); Hematocrit 29.3 VOL% (42.0-52.0); Immature Granulocytes % 17.9 %; Immature Granulocytes Absolute 0.84 #; Lymphocytes # 0.5 10*3/uL (1.4-4.0); Lymphocytes % 10.7 % (21.2-54.2); Mean Corpuscular HGB Conc 30.7 GM/DL (32-36); Mean Corpuscular Volume 84.9 FL (87-102); Mean Platelet Volume 9.9 FL (9.6-12.0); Monocytes % 12.8 % (1.7-12.7); NRBC # 0.07 10*3/uL; Platelet Count 263 T/CUMM (130-400); Red Blood Count 3.45 MC/CUMM (3.8-5.5); White Blood Count 4.7 T/CUMM (4-12)
[2019-11-28 05:41] LABS: PT Patient Result 10.9 SECS (9.8-11.9)
[2019-11-28 05:47] LABS: Ferritin 566.1 ng/ml (26-388); Troponin I < 0.015 NG/ML (0.00-0.045)
[2019-11-28] MEDS ORDERED: HEPARIN 5,000 UNIT/1 ML VIAL IV ONE (05:54)
[2019-11-28 05:56] LABS: Alanine Aminotransferase 18 U/L (16-61); Alkaline Phosphatase 100 U/L (45-117); Aspartate Amino Transferase 35 U/L (0-37); Bilirubin,Total < 0.39 MG/DL (0.2-1.0); Blood Urea Nitrogen 24 MG/DL (7-18); Calcium 8.8 MG/DL (8.5-10.1); Estimated Glom Filtration Rate 142 ML/MIN; Glucose 99 MG/DL (74-106); Osmolality,Calculated 286.1 MOS/KG (273-304); Total Protein 4.9 G/DL (6.4-8.3)
[2019-11-28 06:05] LABS: Band Neutrophils 1 % (0-10); Lymphocytes 12 % (20-55); Metamyelocytes 2 %; Myelocytes 1 %; Promyelocytes 1 %; Segmented Neutrophils 66 % (50-85); Total Cells Counted 100
[2019-11-28 06:06] LABS: Hypochromasia 1+; Microcytosis 1+
[2019-11-28] MEDS: MIDAZOLAM 100 MG in SODIUM CHLORIDE 0.9% 80 ML IV PRN (06:17)
[2019-11-28] MEDS: LACTATED RINGERS 1,000 ML IV SCH ×3 (06:18→19:01)
[2019-11-28] MEDS: HEPARIN DRIP 25,000 UNITS/500 ML PREMIX IV SCH ×2 (06:19→11:35)
[2019-11-28] MEDS: BIKTARVY PO SCH (08:00)
[2019-11-28] MEDS: MONTELUKAST 10 MG TABLET PO SCH ×2 (08:00→21:48)
[2019-11-28] MEDS: FERROUS SULFATE 325 MG TABLET PO SCH ×2 (08:00→21:47)
[2019-11-28] MEDS: OMEPRAZOLE ODT 20 MG TABLET NG SCH (08:00)
[2019-11-28] MEDS: ZINC GLUCONATE 50 MG TABLET PO SCH (08:00)
[2019-11-28] MEDS: FLUCONAZOLE INJ 400 MG in PREMIX 1 EACH IV SCH (09:27)
[2019-11-28] MEDS ORDERED: FUROSEMIDE 40 MG/4 ML VIAL IV ONE (11:38)
[2019-11-29] MEDS: LACTATED RINGERS 1,000 ML IV SCH ×3 (01:17→22:51)
[2019-11-29] MEDS: DEXTROSE 5% IV SCH ×4 (01:18→19:05)
[2019-11-29] MEDS: TRIMETH IV SCH ×4 (01:18→19:05)
[2019-11-29] MEDS: SULFAMETH IV SCH ×4 (01:18→19:05)
[2019-11-29] MEDS: ALBUTEROL INHALER 18 GM INH SCH ×4 (01:49→22:44)
[2019-11-29] MEDS: HEPARIN DRIP 25,000 UNITS/500 ML PREMIX IV SCH ×3 (02:19→18:26)
[2019-11-29] MEDS: methylPREDNISolone SOD SUC 40 MG/1 ML VIAL IV SCH ×2 (03:30→15:42)
[2019-11-29] MEDS: VALPROIC ACID 250 MG/5 ML UDCUP PO SCH ×4 (03:30→21:50)
[2019-11-29 04:32] LABS: Basophils % 0.5 % (0.0-0.8); Hematocrit 29.8 VOL% (42.0-52.0); Hemoglobin 9.4 GM/DL (14.0-18.0); Immature Granulocytes % 13.1 %; Immature Granulocytes Absolute 0.77 #; Lymphocytes # 0.6 10*3/uL (1.4-4.0); Lymphocytes % 10.7 % (21.2-54.2); Mean Corpuscular HGB Conc 31.5 GM/DL (32-36); Mean Corpuscular Volume 82.5 FL (87-102); Mean Platelet Volume 9.8 FL (9.6-12.0); Monocytes % 20.2 % (1.7-12.7); NRBC # 0.09 10*3/uL; Neutrophils % 55.5 % (38.7-73.9); Platelet Count 260 T/CUMM (130-400); Red Blood Count 3.61 MC/CUMM (3.8-5.5); Red Cell Distribution Width 16.9 % (9.3-17.3); White Blood Count 5.9 T/CUMM (4-12)
[2019-11-29 04:32] LABS: ABG Base Excess 3.9 MMOL/L (-2.5-2.5); ABG HCO3 27.8 MMOL/L (20-26); ABG Oxygen Saturation 92.5 % (95-100); ABG PCO2 36.2 MM HG (35-48); ABG PH 7.486 (7.35-7.45); ABG TCO2 24.8 MMOL/L (23-27)
[2019-11-29 04:44] LABS: Alanine Aminotransferase 18 U/L (16-61); Albumin 1.1 G/DL (3.4-5.0); Alkaline Phosphatase 88 U/L (45-117); Aspartate Amino Transferase 36 U/L (0-37); Bilirubin,Total < 0.39 MG/DL (0.2-1.0); Blood Urea Nitrogen 31 MG/DL (7-18); Calcium 9.1 MG/DL (8.5-10.1); Estimated Glom Filtration Rate 142 ML/MIN; Ferritin 712.4 ng/ml (26-388); Glucose 112 MG/DL (74-106); Osmolality,Calculated 286.4 MOS/KG (273-304); Troponin I < 0.015 NG/ML (0.00-0.045)
[2019-11-29] MEDS: INSULIN LISPRO 100 UNIT/ML SUBCUT SCH ×3 (05:59→18:04)
[2019-11-29 06:08] LABS: INR 1.1; PT Patient Result 11.5 SECS (9.8-11.9)
[2019-11-29] MEDS: ZINC GLUCONATE 50 MG TABLET PO SCH (08:08)
[2019-11-29] MEDS: MONTELUKAST 10 MG TABLET PO SCH ×2 (08:08→21:50)
[2019-11-29] MEDS: OMEPRAZOLE ODT 20 MG TABLET NG SCH (08:08)
[2019-11-29] MEDS: BIKTARVY PO SCH (08:08)
[2019-11-29] MEDS: FERROUS SULFATE 325 MG TABLET PO SCH ×2 (08:08→21:50)
[2019-11-29 09:05] LABS: Anisocytosis 1+; Atypical Lymphocytes Few; Band Neutrophils 3 % (0-10); Lymphocytes 13 % (20-55); Macrocytosis 1+; Metamyelocytes 8 %; Myelocytes 1 %; Nucleated Red Blood Cells 3 (0-5); Platelet Estimate Normal; Segmented Neutrophils 51 % (50-85); Total Cells Counted 100
[2019-11-29] MEDS: FLUCONAZOLE INJ 400 MG in PREMIX 1 EACH IV SCH (10:08)
[2019-11-29] MEDS ORDERED: FUROSEMIDE 40 MG/4 ML VIAL IV ONE (16:11)
[2019-11-29] MEDS ORDERED: HEPARIN 5,000 UNIT/1 ML VIAL IV ONE (18:13)
[2019-11-29] MEDS: ALUMINUM/MAGNES/SIMETH MAX STR 30 ML UDCUP PO SCH (21:50)
[2019-11-30] MEDS: INSULIN LISPRO 100 UNIT/ML SUBCUT SCH ×5 (00:24→23:02)
[2019-11-30] MEDS: ALUMINUM/MAGNES/SIMETH MAX STR 30 ML UDCUP PO SCH ×5 (01:00→23:34)
[2019-11-30] MEDS: ALBUTEROL INHALER 18 GM INH SCH ×2 (01:02→06:40)
[2019-11-30] MEDS: TRIMETH IV SCH ×4 (01:06→18:51)
[2019-11-30] MEDS: DEXTROSE 5% IV SCH ×4 (01:06→18:51)
[2019-11-30] MEDS: SULFAMETH IV SCH ×4 (01:06→18:51)
[2019-11-30] MEDS: methylPREDNISolone SOD SUC 40 MG/1 ML VIAL IV SCH ×3 (02:26→23:03)
[2019-11-30] MEDS ORDERED: HEPARIN 5,000 UNIT/1 ML VIAL IV ONE ×3 (03:41→11:59)
[2019-11-30 04:03] LABS: ABG Base Excess 5.3 MMOL/L (-2.5-2.5); ABG HCO3 29.2 MMOL/L (20-26); ABG Oxygen Saturation 97.3 % (95-100); ABG PCO2 39.2 MM HG (35-48); ABG PO2 92.5 MM HG (80-95); ABG TCO2 26.6 MMOL/L (23-27); Allen Test Positive; Pt O2 Delivery Device Ventilator
[2019-11-30] MEDS: VALPROIC ACID 250 MG/5 ML UDCUP PO SCH ×4 (04:05→20:44)
[2019-11-30 05:06] LABS: Basophils % 0.1 % (0.0-0.8); Hematocrit 31.4 VOL% (42.0-52.0); Hemoglobin 9.8 GM/DL (14.0-18.0); Immature Granulocytes % 9.1 %; Immature Granulocytes Absolute 0.61 #; Lymphocytes # 0.4 10*3/uL (1.4-4.0); Lymphocytes % 6.4 % (21.2-54.2); Mean Corpuscular HGB Conc 31.2 GM/DL (32-36); Mean Corpuscular Volume 82.8 FL (87-102); Mean Platelet Volume 9.4 FL (9.6-12.0); Monocytes % 14.7 % (1.7-12.7); NRBC # 0.05 10*3/uL; Neutrophils % 69.7 % (38.7-73.9); Platelet Count 260 T/CUMM (130-400); Red Blood Count 3.79 MC/CUMM (3.8-5.5); Red Cell Distribution Width 16.8 % (9.3-17.3); White Blood Count 6.7 T/CUMM (4-12)
[2019-11-30 05:25] LABS: Calcium 9.3 MG/DL (8.5-10.1); Osmolality,Calculated 285.5 MOS/KG (273-304)
[2019-11-30 05:28] LABS: Ferritin 706.3 ng/ml (26-388); Troponin I < 0.015 NG/ML (0.00-0.045)
[2019-11-30 05:32] LABS: Alanine Aminotransferase 23 U/L (16-61); Albumin 1.3 G/DL (3.4-5.0); Alkaline Phosphatase 95 U/L (45-117); Aspartate Amino Transferase 41 U/L (0-37); Bilirubin,Direct < 0.100 MG/DL (0.0-0.20); Bilirubin,Indirect 0.3 MG/DL (0.0-1.0); Bilirubin,Total < 0.39 MG/DL (0.2-1.0); Total Protein 6.3 G/DL (6.4-8.3)
[2019-11-30 06:23] LABS: Band Neutrophils 5 % (0-10); Lymphocytes 5 % (20-55); Metamyelocytes 2 %; Nucleated Red Blood Cells 4 (0-5); Segmented Neutrophils 74 % (50-85); Total Cells Counted 100
[2019-11-30 06:24] LABS: Anisocytosis 2+; Basophilic Stippling Slight; Macrocytosis 1+; Poikilocytosis Slight
[2019-11-30 06:52] LABS: INR 1.1; PT Patient Result 11.8 SECS (9.8-11.9)
[2019-11-30] MEDS: BIKTARVY PO SCH (08:43)
[2019-11-30] MEDS: ZINC GLUCONATE 50 MG TABLET PO SCH (08:43)
[2019-11-30] MEDS: OMEPRAZOLE ODT 20 MG TABLET NG SCH (08:43)
[2019-11-30] MEDS: MONTELUKAST 10 MG TABLET PO SCH ×2 (08:43→20:44)
[2019-11-30] MEDS: FERROUS SULFATE 325 MG TABLET PO SCH ×2 (08:43→20:44)
[2019-11-30] MEDS: FLUCONAZOLE INJ 400 MG in PREMIX 1 EACH IV SCH (08:47)
[2019-11-30] MEDS: HEPARIN DRIP 25,000 UNITS/500 ML PREMIX IV SCH ×2 (08:49→10:03)
[2019-11-30] MEDS: MORPHINE 4 MG/1 ML VIAL IV PRN ×3 (09:03→22:54)
[2019-11-30] MEDS ORDERED: METOPROLOL TARTRATE 5 MG/5 ML VIAL IV ONE (09:22)
[2019-11-30] MEDS ORDERED: REMDESIVIR 200 MG in SODIUM CHLORIDE 0.9% 210 ML IV ONE (12:00)
[2019-11-30] MEDS ORDERED: methylPREDNISolone SOD SUC 40 MG/1 ML VIAL IV SCH (14:37)
[2019-12-01] MEDS: HEPARIN DRIP 25,000 UNITS/500 ML PREMIX IV SCH ×2 (00:43→16:18)
[2019-12-01] MEDS: SULFAMETH IV SCH ×4 (02:12→18:29)
[2019-12-01] MEDS: TRIMETH IV SCH ×4 (02:12→18:29)
[2019-12-01] MEDS: DEXTROSE 5% IV SCH ×4 (02:12→18:29)
[2019-12-01] MEDS: VALPROIC ACID 250 MG/5 ML UDCUP PO SCH ×4 (02:12→21:22)
[2019-12-01 04:46] LABS: ABG Base Excess 5.5 MMOL/L (-2.5-2.5); ABG HCO3 29.4 MMOL/L (20-26); ABG Oxygen Saturation 96.6 % (95-100); ABG PCO2 39.5 MM HG (35-48); ABG PO2 82.6 MM HG (80-95); ABG TCO2 27.3 MMOL/L (23-27); Allen Test Positive; Pt O2 Delivery Device Ventilator
[2019-12-01] MEDS: INSULIN LISPRO 100 UNIT/ML SUBCUT SCH ×4 (05:14→23:20)
[2019-12-01] MEDS: ALUMINUM/MAGNES/SIMETH MAX STR 30 ML UDCUP PO SCH ×3 (05:33→18:10)
[2019-12-01 05:54] LABS: Basophils % 0.1 % (0.0-0.8); Hematocrit 28.7 VOL% (42.0-52.0); Hemoglobin 8.9 GM/DL (14.0-18.0); Immature Granulocytes % 7.2 %; Immature Granulocytes Absolute 0.49 #; Lymphocytes # 0.5 10*3/uL (1.4-4.0); Lymphocytes % 7.2 % (21.2-54.2); Mean Corpuscular Volume 84.2 FL (87-102); Mean Platelet Volume 9.7 FL (9.6-12.0); Monocytes % 14.7 % (1.7-12.7); NRBC # 0.05 10*3/uL; Neutrophils % 70.8 % (38.7-73.9); Platelet Count 230 T/CUMM (130-400); Red Blood Count 3.41 MC/CUMM (3.8-5.5); Red Cell Distribution Width 16.8 % (9.3-17.3); White Blood Count 6.8 T/CUMM (4-12)
[2019-12-01 06:03] LABS: INR 1.1; PT Patient Result 11.8 SECS (9.8-11.9)
[2019-12-01 06:23] LABS: Alanine Aminotransferase 21 U/L (16-61); Albumin 1.3 G/DL (3.4-5.0); Alkaline Phosphatase 86 U/L (45-117); Aspartate Amino Transferase 30 U/L (0-37); Bilirubin,Direct < 0.100 MG/DL (0.0-0.20); Bilirubin,Indirect 0.3 MG/DL (0.0-1.0); Bilirubin,Total < 0.39 MG/DL (0.2-1.0); Ferritin 643.3 ng/ml (26-388); Total Protein 5.8 G/DL (6.4-8.3); Troponin I < 0.015 NG/ML (0.00-0.045)
[2019-12-01 06:36] LABS: Lymphocytes 15 % (20-55); Segmented Neutrophils 79 % (50-85); Total Cells Counted 100
[2019-12-01 06:37] LABS: Hypochromasia 1+; Macrocytosis Slight; Platelet Estimate Adequate
[2019-12-01 07:07] LABS: Osmolality,Calculated 280.8 MOS/KG (273-304)
[2019-12-01] MEDS: BIKTARVY PO SCH (09:40)
[2019-12-01] MEDS: MONTELUKAST 10 MG TABLET PO SCH ×2 (09:40→21:22)
[2019-12-01] MEDS: FERROUS SULFATE 325 MG TABLET PO SCH ×2 (09:40→21:22)
[2019-12-01] MEDS: OMEPRAZOLE ODT 20 MG TABLET NG SCH (09:40)
[2019-12-01] MEDS: ZINC GLUCONATE 50 MG TABLET PO SCH (09:40)
[2019-12-01] MEDS: FLUCONAZOLE INJ 400 MG in PREMIX 1 EACH IV SCH (09:43)
[2019-12-01] MEDS: methylPREDNISolone SOD SUC 40 MG/1 ML VIAL IV SCH ×2 (12:47→23:20)
[2019-12-01] MEDS: REMDESIVIR 100 MG in SODIUM CHLORIDE 0.9% 230 ML IV SCH (13:36)
[2019-12-01] MEDS: FUROSEMIDE 40 MG/4 ML VIAL IV SCH (15:31)
[2019-12-01] MEDS: CHOLECALCIFEROL 1,000 UNIT TABLET PO SCH (15:31)
[2019-12-01] MEDS: MORPHINE 4 MG/1 ML VIAL IV PRN (16:45)
[2019-12-01] MEDS ORDERED: NOREPINEPHRINE 8 MG in SODIUM CHLORIDE 0.9% 242 ML IV PRN (18:22)
[2019-12-02] MEDS: SULFAMETH IV SCH ×4 (01:11→19:37)
[2019-12-02] MEDS: ALUMINUM/MAGNES/SIMETH MAX STR 30 ML UDCUP PO SCH ×4 (01:11→18:24)
[2019-12-02] MEDS: TRIMETH IV SCH ×4 (01:11→19:37)
[2019-12-02] MEDS: DEXTROSE 5% IV SCH ×4 (01:11→19:37)
[2019-12-02] MEDS: VALPROIC ACID 250 MG/5 ML UDCUP PO SCH ×4 (03:53→20:36)
[2019-12-02 05:01] LABS: ABG Base Excess 6.9 MMOL/L (-2.5-2.5); ABG HCO3 29.7 MMOL/L (20-26); ABG PCO2 35.5 MM HG (35-48); ABG PH 7.541 (7.35-7.45); ABG PO2 80.9 MM HG (80-95); ABG TCO2 30.8 MMOL/L (23-27)
[2019-12-02 05:42] LABS: Calcium 9.1 MG/DL (8.5-10.1); Osmolality,Calculated 281.8 MOS/KG (273-304)
[2019-12-02 05:54] LABS: INR 1.1; PT Patient Result 11.7 SECS (9.8-11.9)
[2019-12-02 05:56] LABS: Basophils % 0.2 % (0.0-0.8); Hematocrit 28.8 VOL% (42.0-52.0); Immature Granulocytes % 6.1 %; Immature Granulocytes Absolute 0.38 #; Lymphocytes # 0.5 10*3/uL (1.4-4.0); Lymphocytes % 7.6 % (21.2-54.2); Mean Corpuscular HGB Conc 31.3 GM/DL (32-36); Mean Corpuscular Volume 84.2 FL (87-102); Mean Platelet Volume 9.6 FL (9.6-12.0); Monocytes % 11.9 % (1.7-12.7); NRBC # 0.03 10*3/uL; Neutrophils % 74.2 % (38.7-73.9); Platelet Count 219 T/CUMM (130-400); Red Blood Count 3.42 MC/CUMM (3.8-5.5); Red Cell Distribution Width 17.2 % (9.3-17.3); White Blood Count 6.2 T/CUMM (4-12)
[2019-12-02] MEDS: INSULIN LISPRO 100 UNIT/ML SUBCUT SCH ×3 (06:05→18:19)
[2019-12-02 06:06] LABS: Hypochromasia 1+; Lymphocytes 8 % (20-55); Microcytosis Slight; Nucleated Red Blood Cells 2 (0-5); Platelet Estimate Adequate; Segmented Neutrophils 84 % (50-85); Total Cells Counted 100
[2019-12-02 06:13] LABS: Alanine Aminotransferase 20 U/L (16-61); Albumin 1.4 G/DL (3.4-5.0); Alkaline Phosphatase 90 U/L (45-117); Aspartate Amino Transferase 25 U/L (0-37); Bilirubin,Indirect 0.3 MG/DL (0.0-1.0); Bilirubin,Total < 0.39 MG/DL (0.2-1.0); Ferritin 553.8 ng/ml (26-388); Total Protein 5.9 G/DL (6.4-8.3); Troponin I < 0.015 NG/ML (0.00-0.045)
[2019-12-02 06:16] LABS: Pneumocystis jiroveci Source SPUTUM
[2019-12-02] MEDS: HEPARIN DRIP 25,000 UNITS/500 ML PREMIX IV SCH ×2 (07:38→22:55)
[2019-12-02] MEDS: FUROSEMIDE 40 MG/4 ML VIAL IV SCH (08:12)
[2019-12-02] MEDS: BIKTARVY PO SCH (08:13)
[2019-12-02] MEDS: ZINC GLUCONATE 50 MG TABLET PO SCH (08:13)
[2019-12-02] MEDS: OMEPRAZOLE ODT 20 MG TABLET NG SCH (08:14)
[2019-12-02] MEDS: FERROUS SULFATE 325 MG TABLET PO SCH ×2 (08:14→20:36)
[2019-12-02] MEDS: CHOLECALCIFEROL 1,000 UNIT TABLET PO SCH (08:14)
[2019-12-02] MEDS: MONTELUKAST 10 MG TABLET PO SCH ×2 (08:14→20:36)
[2019-12-02] MEDS: FLUCONAZOLE INJ 400 MG in PREMIX 1 EACH IV SCH (09:19)
[2019-12-02] MEDS: MENTHOL/ZINC OXIDE OINT 71 GM JAR TOP SCH ×2 (10:11→20:36)
[2019-12-02] MEDS ORDERED: FUROSEMIDE 40 MG/4 ML VIAL IV SCH (12:00)
[2019-12-02 13:25] LABS: Pneumocystis jiroveci Result Positive (Negative)
[2019-12-02] MEDS: REMDESIVIR 100 MG in SODIUM CHLORIDE 0.9% 230 ML IV SCH (14:13)
[2019-12-02] MEDS: DEXAMETHASONE 4 MG/1 ML VIAL IV SCH (15:25)
[2019-12-02] MEDS ORDERED: DEXAMETHASONE 4 MG/1 ML VIAL IV SCH (15:30)
[2019-12-02] MEDS: LORazepam 2 MG/1 ML VIAL IV PRN (18:57)
[2019-12-03] MEDS: ALUMINUM/MAGNES/SIMETH MAX STR 30 ML UDCUP PO SCH ×4 (00:15→17:49)
[2019-12-03] MEDS: INSULIN LISPRO 100 UNIT/ML SUBCUT SCH ×4 (00:15→17:49)
[2019-12-03] MEDS: SULFAMETH IV SCH ×4 (00:16→18:54)
[2019-12-03] MEDS: DEXTROSE 5% IV SCH ×4 (00:16→18:54)
[2019-12-03] MEDS: TRIMETH IV SCH ×4 (00:16→18:54)
[2019-12-03] MEDS: VALPROIC ACID 250 MG/5 ML UDCUP PO SCH ×4 (03:31→20:42)
[2019-12-03 03:49] LABS: Hematocrit 28.3 VOL% (42.0-52.0); Hemoglobin 8.7 GM/DL (14.0-18.0); Immature Granulocytes % 4.9 %; Immature Granulocytes Absolute 0.32 #; Lymphocytes # 0.5 10*3/uL (1.4-4.0); Lymphocytes % 8.2 % (21.2-54.2); Mean Corpuscular HGB Conc 30.7 GM/DL (32-36); Mean Corpuscular Volume 84.5 FL (87-102); Mean Platelet Volume 9.1 FL (9.6-12.0); Monocytes % 12.3 % (1.7-12.7); NRBC # 0.04 10*3/uL; Neutrophils % 74.6 % (38.7-73.9); Platelet Count 227 T/CUMM (130-400); Red Blood Count 3.35 MC/CUMM (3.8-5.5); Red Cell Distribution Width 17.2 % (9.3-17.3); White Blood Count 6.5 T/CUMM (4-12)
[2019-12-03 04:10] LABS: INR 1.1; PT Patient Result 12.1 SECS (9.8-11.9)
[2019-12-03 04:12] LABS: Calcium 8.6 MG/DL (8.5-10.1); Osmolality,Calculated 280.8 MOS/KG (273-304)
[2019-12-03 04:13] LABS: ABG Base Excess 2.1 MMOL/L (-2.5-2.5); ABG HCO3 26.3 MMOL/L (20-26); ABG Oxygen Saturation 98.7 % (95-100); ABG PCO2 40.1 MM HG (35-48); ABG PH 7.428 (7.35-7.45); ABG TCO2 24.6 MMOL/L (23-27)
[2019-12-03 04:28] LABS: Alanine Aminotransferase 19 U/L (16-61); Albumin 1.5 G/DL (3.4-5.0); Alkaline Phosphatase 93 U/L (45-117); Aspartate Amino Transferase 19 U/L (0-37); Bilirubin,Direct < 0.100 MG/DL (0.0-0.20); Bilirubin,Indirect 0.3 MG/DL (0.0-1.0); Bilirubin,Total < 0.39 MG/DL (0.2-1.0); Total Protein 5.5 G/DL (6.4-8.3)
[2019-12-03 05:00] LABS: Ferritin 509.7 ng/ml (26-388); Troponin I < 0.015 NG/ML (0.00-0.045)
[2019-12-03] MEDS: HEPARIN DRIP 25,000 UNITS/500 ML PREMIX IV SCH ×2 (08:25→13:32)
[2019-12-03] MEDS: BIKTARVY PO SCH (08:25)
[2019-12-03] MEDS: FERROUS SULFATE 325 MG TABLET PO SCH ×2 (08:26→20:42)
[2019-12-03] MEDS: MONTELUKAST 10 MG TABLET PO SCH ×2 (08:26→20:42)
[2019-12-03] MEDS: OMEPRAZOLE ODT 20 MG TABLET NG SCH (08:26)
[2019-12-03] MEDS: CHOLECALCIFEROL 1,000 UNIT TABLET PO SCH (08:26)
[2019-12-03] MEDS: ZINC GLUCONATE 50 MG TABLET PO SCH (08:26)
[2019-12-03] MEDS: MENTHOL/ZINC OXIDE OINT 71 GM JAR TOP SCH ×2 (08:27→20:41)
[2019-12-03] MEDS: FLUCONAZOLE INJ 400 MG in PREMIX 1 EACH IV SCH (08:31)
[2019-12-03] MEDS ORDERED: predniSONE 20 MG TABLET PER TUBE SCH (09:00)
[2019-12-03] MEDS: REMDESIVIR 100 MG in SODIUM CHLORIDE 0.9% 230 ML IV SCH (13:08)
[2019-12-03] MEDS ORDERED: LORazepam 2 MG/1 ML VIAL ONE (14:16)
[2019-12-03] MEDS: LORazepam 2 MG/1 ML VIAL IV PRN (14:23)
[2019-12-03] MEDS: DEXAMETHASONE 4 MG/1 ML VIAL IV SCH (15:09)
[2019-12-04] MEDS: ALUMINUM/MAGNES/SIMETH MAX STR 30 ML UDCUP PO SCH ×4 (00:40→18:15)
[2019-12-04] MEDS: INSULIN LISPRO 100 UNIT/ML SUBCUT SCH ×4 (00:40→19:16)
[2019-12-04] MEDS: TRIMETH IV SCH ×4 (00:41→19:17)
[2019-12-04] MEDS: DEXTROSE 5% IV SCH ×4 (00:41→19:17)
[2019-12-04] MEDS: SULFAMETH IV SCH ×4 (00:41→19:17)
[2019-12-04] MEDS: VALPROIC ACID 250 MG/5 ML UDCUP PO SCH ×4 (03:50→21:49)
[2019-12-04 04:29] LABS: Allen Test Positive; Pt O2 Delivery Device Ventilator
[2019-12-04 04:35] LABS: ABG Base Excess 0.6 MMOL/L (-2.5-2.5); ABG Oxygen Saturation 98.7 % (95-100); ABG PCO2 39.3 MM HG (35-48); ABG PH 7.413 (7.35-7.45); ABG TCO2 22.8 MMOL/L (23-27)
[2019-12-04 04:58] LABS: Hematocrit 28.1 VOL% (42.0-52.0); Hemoglobin 8.6 GM/DL (14.0-18.0); Immature Granulocytes % 5.6 %; Lymphocytes # 0.5 10*3/uL (1.4-4.0); Lymphocytes % 6.7 % (21.2-54.2); Mean Corpuscular HGB Conc 30.6 GM/DL (32-36); Mean Corpuscular Volume 84.9 FL (87-102); Mean Platelet Volume 8.9 FL (9.6-12.0); Monocytes % 8.4 % (1.7-12.7); NRBC # 0.06 10*3/uL; Neutrophils % 79.3 % (38.7-73.9); Platelet Count 233 T/CUMM (130-400); Red Blood Count 3.31 MC/CUMM (3.8-5.5); Red Cell Distribution Width 17.7 % (9.3-17.3); White Blood Count 7.1 T/CUMM (4-12)
[2019-12-04 05:09] LABS: INR 1.1
[2019-12-04 05:10] LABS: Ferritin 488.7 ng/ml (26-388); Troponin I < 0.015 NG/ML (0.00-0.045)
[2019-12-04] MEDS: HEPARIN DRIP 25,000 UNITS/500 ML PREMIX IV SCH ×2 (05:34→09:06)
[2019-12-04 05:40] LABS: Hypochromasia 1+; Lymphocytes 7 % (20-55); Microcytosis Slight; Platelet Estimate Adequate; Segmented Neutrophils 90 % (50-85); Total Cells Counted 100
[2019-12-04 06:22] LABS: Calcium 8.8 MG/DL (8.5-10.1)
[2019-12-04] MEDS: ZINC GLUCONATE 50 MG TABLET PO SCH (09:05)
[2019-12-04] MEDS: OMEPRAZOLE ODT 20 MG TABLET NG SCH (09:05)
[2019-12-04] MEDS: MONTELUKAST 10 MG TABLET PO SCH ×2 (09:05→21:49)
[2019-12-04] MEDS: FERROUS SULFATE 325 MG TABLET PO SCH ×2 (09:05→21:49)
[2019-12-04] MEDS: CHOLECALCIFEROL 1,000 UNIT TABLET PO SCH (09:05)
[2019-12-04] MEDS: BIKTARVY PO SCH (09:06)
[2019-12-04] MEDS: MENTHOL/ZINC OXIDE OINT 71 GM JAR TOP SCH ×2 (09:06→21:49)
[2019-12-04] MEDS: FLUCONAZOLE INJ 400 MG in PREMIX 1 EACH IV SCH (09:10)
[2019-12-04] MEDS: REMDESIVIR 100 MG in SODIUM CHLORIDE 0.9% 230 ML IV SCH (12:30)
[2019-12-04] MEDS: DEXAMETHASONE 4 MG/1 ML VIAL IV SCH (15:16)
[2019-12-04] MEDS: LORazepam 2 MG/1 ML VIAL IV PRN (21:03)
[2019-12-05] MEDS: INSULIN LISPRO 100 UNIT/ML SUBCUT SCH ×4 (00:13→18:43)
[2019-12-05] MEDS: ALUMINUM/MAGNES/SIMETH MAX STR 30 ML UDCUP PO SCH ×4 (00:15→17:44)
[2019-12-05] MEDS: TRIMETH IV SCH ×4 (01:12→19:35)
[2019-12-05] MEDS: SULFAMETH IV SCH ×4 (01:12→19:35)
[2019-12-05] MEDS: DEXTROSE 5% IV SCH ×4 (01:12→19:35)
[2019-12-05] MEDS: VALPROIC ACID 250 MG/5 ML UDCUP PO SCH ×4 (04:27→21:01)
[2019-12-05 05:02] LABS: ABG Base Excess 0.8 MMOL/L (-2.5-2.5); ABG HCO3 25.1 MMOL/L (20-26); ABG Oxygen Saturation 96.9 % (95-100); ABG PH 7.395 (7.35-7.45); ABG PO2 91.9 MM HG (80-95); ABG TCO2 23.3 MMOL/L (23-27); Allen Test Positive; Pt O2 Delivery Device Ventilator
[2019-12-05 06:03] LABS: Basophils % 0.1 % (0.0-0.8); Hematocrit 28.3 VOL% (42.0-52.0); Hemoglobin 8.8 GM/DL (14.0-18.0); Immature Granulocytes % 6.6 %; Immature Granulocytes Absolute 0.65 #; Lymphocytes # 0.7 10*3/uL (1.4-4.0); Lymphocytes % 6.9 % (21.2-54.2); Mean Corpuscular HGB Conc 31.1 GM/DL (32-36); Mean Corpuscular Volume 84.7 FL (87-102); Mean Platelet Volume 9.5 FL (9.6-12.0); Monocytes % 7.1 % (1.7-12.7); NRBC # 0.08 10*3/uL; Neutrophils % 79.3 % (38.7-73.9); Platelet Count 282 T/CUMM (130-400); Red Blood Count 3.34 MC/CUMM (3.8-5.5); Red Cell Distribution Width 18.3 % (9.3-17.3); White Blood Count 9.8 T/CUMM (4-12)
[2019-12-05 06:40] LABS: Osmolality,Calculated 278.8 MOS/KG (273-304)
[2019-12-05] MEDS: HEPARIN DRIP 25,000 UNITS/500 ML PREMIX IV SCH ×3 (06:42→22:19)
[2019-12-05] MEDS: BIKTARVY PO SCH (10:05)
[2019-12-05] MEDS: FERROUS SULFATE 325 MG TABLET PO SCH ×2 (10:05→21:01)
[2019-12-05] MEDS: MONTELUKAST 10 MG TABLET PO SCH ×2 (10:05→21:02)
[2019-12-05] MEDS: ZINC GLUCONATE 50 MG TABLET PO SCH (10:05)
[2019-12-05] MEDS: OMEPRAZOLE ODT 20 MG TABLET NG SCH (10:05)
[2019-12-05] MEDS: MENTHOL/ZINC OXIDE OINT 71 GM JAR TOP SCH ×2 (10:06→21:01)
[2019-12-05] MEDS: CHOLECALCIFEROL 1,000 UNIT TABLET PO SCH (10:06)
[2019-12-05 13:07] LABS: Band Neutrophils 2 % (0-10); Lymphocytes 3 % (20-55); Metamyelocytes 2 %; Segmented Neutrophils 86 % (50-85); Total Cells Counted 100
[2019-12-05 13:08] LABS: Polychromasia Slight
[2019-12-05 13:09] LABS: Ovalocytes Slight
[2019-12-05 13:10] LABS: Hypochromasia 3+; Sickle Cells Slight
[2019-12-05 13:11] LABS: Anisocytosis 2+
[2019-12-05 13:12] LABS: Macrocytosis 1+; Microcytosis 1+
[2019-12-05 13:13] LABS: Elliptocytes Few; Platelet Estimate Normal
[2019-12-05] MEDS: DEXAMETHASONE 4 MG/1 ML VIAL IV SCH (17:44)
[2019-12-05 21:41] LABS: Calcium 8.7 MG/DL (8.5-10.1); Osmolality,Calculated 279.8 MOS/KG (273-304)
[2019-12-05] MEDS: MORPHINE 4 MG/1 ML VIAL IV PRN (21:54)
[2019-12-06] MEDS: INSULIN LISPRO 100 UNIT/ML SUBCUT SCH ×4 (00:04→17:58)
[2019-12-06] MEDS: ALUMINUM/MAGNES/SIMETH MAX STR 30 ML UDCUP PO SCH ×4 (00:44→17:26)
[2019-12-06] MEDS: SULFAMETH IV SCH ×4 (00:44→19:35)
[2019-12-06] MEDS: TRIMETH IV SCH ×4 (00:44→19:35)
[2019-12-06] MEDS: DEXTROSE 5% IV SCH ×4 (00:44→19:35)
[2019-12-06] MEDS: VALPROIC ACID 250 MG/5 ML UDCUP PO SCH ×4 (02:11→21:25)
[2019-12-06 04:57] LABS: ABG Base Excess 0.1 MMOL/L (-2.5-2.5); ABG HCO3 24.2 MMOL/L (20-26); ABG Oxygen Saturation 92.3 % (95-100); ABG PCO2 36.9 MM HG (35-48); ABG PH 7.434 (7.35-7.45); ABG PO2 67.8 MM HG (80-95); ABG TCO2 25.3 MMOL/L (23-27); Allen Test Positive; Pt O2 Delivery Device Ventilator
[2019-12-06 06:02] LABS: Basophils % 0.1 % (0.0-0.8); Hematocrit 28.3 VOL% (42.0-52.0); Hemoglobin 8.7 GM/DL (14.0-18.0); Immature Granulocytes Absolute 1.88 #; Lymphocytes # 0.2 10*3/uL (1.4-4.0); Lymphocytes % 2.1 % (21.2-54.2); Mean Corpuscular HGB Conc 30.7 GM/DL (32-36); Mean Platelet Volume 8.9 FL (9.6-12.0); Monocytes % 3.4 % (1.7-12.7); NRBC # 0.03 10*3/uL; Neutrophils % 76.4 % (38.7-73.9); Platelet Count 273 T/CUMM (130-400); Red Blood Count 3.29 MC/CUMM (3.8-5.5); Red Cell Distribution Width 18.6 % (9.3-17.3); White Blood Count 10.5 T/CUMM (4-12)
[2019-12-06 06:11] LABS: Calcium 8.9 MG/DL (8.5-10.1); Osmolality,Calculated 280.8 MOS/KG (273-304)
[2019-12-06 06:43] LABS: Band Neutrophils 9 % (0-10); Lymphocytes 5 % (20-55); Segmented Neutrophils 74 % (50-85); Total Cells Counted 100
[2019-12-06] MEDS: HEPARIN DRIP 25,000 UNITS/500 ML PREMIX IV SCH ×2 (06:43→14:19)
[2019-12-06 06:44] LABS: Anisocytosis 1+; Hypochromasia 1+; Ovalocytes 1+; Platelet Estimate Normal
[2019-12-06] MEDS: OMEPRAZOLE ODT 20 MG TABLET NG SCH (09:36)
[2019-12-06] MEDS: MONTELUKAST 10 MG TABLET PO SCH ×2 (09:36→21:25)
[2019-12-06] MEDS: ZINC GLUCONATE 50 MG TABLET PO SCH (09:36)
[2019-12-06] MEDS: CHOLECALCIFEROL 1,000 UNIT TABLET PO SCH (09:36)
[2019-12-06] MEDS: FERROUS SULFATE 325 MG TABLET PO SCH ×2 (09:36→21:25)
[2019-12-06] MEDS: BIKTARVY PO SCH (09:37)
[2019-12-06] MEDS: MENTHOL/ZINC OXIDE OINT 71 GM JAR TOP SCH ×2 (09:37→21:25)
[2019-12-06] MEDS ORDERED: dilTIAZem Drip 125 MG/125 ML PREMIX IV SCH (13:00)
[2019-12-06] MEDS ORDERED: DIGOXIN 0.5 MG/2 ML AMP IV ONE (13:34)
[2019-12-06] MEDS: MORPHINE 4 MG/1 ML VIAL IV PRN (13:43)
[2019-12-06] MEDS ORDERED: METOPROLOL TARTRATE 5 MG/5 ML VIAL IV ONE ×2 (14:08→14:11)
[2019-12-06] MEDS ORDERED: METOPROLOL TARTRATE 25 MG TABLET ONE (14:10)
[2019-12-06] MEDS: DEXAMETHASONE 4 MG/1 ML VIAL IV SCH (15:48)
[2019-12-06] MEDS ORDERED: PHENYLEPHRINE DRIP 40 MG/250 ML PREMIX IV ONE (15:53)
[2019-12-06] MEDS ORDERED: FUROSEMIDE 40 MG/4 ML VIAL IV SCH (16:00)
[2019-12-06 16:07] LABS: Basophils % 0.2 % (0.0-0.8); Eosinophils % 0.2 % (0.00-10.9); Hemoglobin 7.8 GM/DL (14.0-18.0); Immature Granulocytes % 20.5 %; Immature Granulocytes Absolute 1.35 #; Lymphocytes # 0.4 10*3/uL (1.4-4.0); Lymphocytes % 6.7 % (21.2-54.2); Mean Corpuscular Volume 86.7 FL (87-102); Mean Platelet Volume 8.9 FL (9.6-12.0); Monocytes % 6.1 % (1.7-12.7); NRBC # 0.08 10*3/uL; Neutrophils % 66.3 % (38.7-73.9); Platelet Count 229 T/CUMM (130-400); Red Cell Distribution Width 18.6 % (9.3-17.3); White Blood Count 6.6 T/CUMM (4-12)
[2019-12-06] MEDS ORDERED: SODIUM CHLORIDE 0.9% 500 ML IV ONE (16:08)
[2019-12-06] MEDS ORDERED: ADENOSINE 6 MG/2 ML VIAL IV ONE (16:24)
[2019-12-06 16:38] LABS: Calcium 8.4 MG/DL (8.5-10.1); Osmolality,Calculated 274.1 MOS/KG (273-304); Thyroid Stimulating Hormone 1.32 uIU/ml (0.358-3.74)
[2019-12-06] MEDS: SODIUM CHLORIDE 0.9% 1,000 ML IV SCH (17:25)
[2019-12-06] MEDS: MEROPENEM 500 MG in SODIUM CHLORIDE 0.9% 100 ML IV SCH ×2 (17:25→23:55)
[2019-12-06] MEDS: PHENYLEPHRINE DRIP 40 MG/250 ML PREMIX IV PRN (17:35)
[2019-12-06] MEDS: METOPROLOL TARTRATE 25 MG TABLET PO SCH (18:00)
[2019-12-06 18:57] LABS: Band Neutrophils 18 % (0-10); Eosinophils 1 % (0-10); Lymphocytes 8 % (20-55); Metamyelocytes 2 %; Myelocytes 1 %; Nucleated Red Blood Cells 1 (0-5); Platelet Estimate Normal; Segmented Neutrophils 68 % (50-85); Total Cells Counted 100
[2019-12-06 21:11] LABS: HIV Antigen/Antibody Result Reactive (Nonreactive)
[2019-12-06] MEDS: AZITHROMYCIN 40 MG/ML 15 ML/BOTTLE PO SCH (21:25)
[2019-12-07] MEDS: ALUMINUM/MAGNES/SIMETH MAX STR 30 ML UDCUP PO SCH ×4 (00:09→18:15)
[2019-12-07] MEDS: METOPROLOL TARTRATE 25 MG TABLET PO SCH ×4 (00:09→18:15)
[2019-12-07] MEDS: INSULIN LISPRO 100 UNIT/ML SUBCUT SCH ×4 (00:31→17:47)
[2019-12-07] MEDS: DEXTROSE 5% IV SCH ×3 (02:56→13:56)
[2019-12-07] MEDS: TRIMETH IV SCH ×3 (02:56→13:56)
[2019-12-07] MEDS: SULFAMETH IV SCH ×3 (02:56→13:56)
[2019-12-07 03:29] LABS: Amorphous Crystals,Urine Occasional /HPF (Few); Apearance,Urine CLEAR (Clear); Bacteria,Urine Moderate /HPF (Few); Bilirubin,Urine Negative (Negative); Blood, Urine Small mg/dL (Negative); Glucose,Urine (UA) Negative (Negative); Ketones,Urine Negative (Negative); Nitrite,Urine Negative (Negative); Protein,Urine Negative; RBC,Urine 25 /HPF (0-4); Urine Color Yellow (Yellow); Urine Specific Gravity 1.013 (1.001-1.035); Urine Urobilinogen < 2.0 EU/DL (0.2-1.0); WBC,Urine 1 /HPF (0-6)
[2019-12-07] MEDS: VALPROIC ACID 250 MG/5 ML UDCUP PO SCH ×4 (04:20→21:45)
[2019-12-07 04:58] LABS: ABG Base Excess -0.3 MMOL/L (-2.5-2.5); ABG HCO3 24.2 MMOL/L (20-26); ABG Oxygen Saturation 98.5 % (95-100); ABG PCO2 40.1 MM HG (35-48); ABG PH 7.394 (7.35-7.45); Allen Test Positive; Pt O2 Delivery Device Ventilator
[2019-12-07] MEDS: MEROPENEM 500 MG in SODIUM CHLORIDE 0.9% 100 ML IV SCH (05:53)
[2019-12-07 05:55] LABS: Basophils % 0.2 % (0.0-0.8); Hematocrit 23.9 VOL% (42.0-52.0); Hemoglobin 7.4 GM/DL (14.0-18.0); Immature Granulocytes Absolute 1.57 #; Lymphocytes # 0.3 10*3/uL (1.4-4.0); Lymphocytes % 4.3 % (21.2-54.2); Mean Corpuscular Volume 85.4 FL (87-102); Mean Platelet Volume 9.2 FL (9.6-12.0); Monocytes % 5.8 % (1.7-12.7); NRBC # 0.06 10*3/uL; Neutrophils % 65.7 % (38.7-73.9); Platelet Count 251 T/CUMM (130-400); Red Cell Distribution Width 18.6 % (9.3-17.3); White Blood Count 6.5 T/CUMM (4-12)
[2019-12-07 06:08] LABS: Calcium 8.8 MG/DL (8.5-10.1); Osmolality,Calculated 283.7 MOS/KG (273-304)
[2019-12-07 06:25] LABS: Band Neutrophils 4 % (0-10); Hypochromasia 1+; Lymphocytes 3 % (20-55); Nucleated Red Blood Cells 1 (0-5); Platelet Estimate Adequate; Segmented Neutrophils 87 % (50-85); Total Cells Counted 100
[2019-12-07] MEDS: SODIUM CHLORIDE 0.9% 1,000 ML IV SCH ×4 (06:42→21:58)
[2019-12-07] MEDS: MENTHOL/ZINC OXIDE OINT 71 GM JAR TOP SCH ×2 (08:17→21:44)
[2019-12-07] MEDS: FERROUS SULFATE 325 MG TABLET PO SCH ×2 (08:18→21:45)
[2019-12-07] MEDS: OMEPRAZOLE ODT 20 MG TABLET NG SCH (08:18)
[2019-12-07] MEDS: MONTELUKAST 10 MG TABLET PO SCH ×2 (08:18→21:45)
[2019-12-07] MEDS: ZINC GLUCONATE 50 MG TABLET PO SCH (08:19)
[2019-12-07] MEDS: CHOLECALCIFEROL 1,000 UNIT TABLET PO SCH (08:19)
[2019-12-07] MEDS ORDERED: SODIUM CHLORIDE 0.9% 1,000 ML IV PRN (09:18)
[2019-12-07 09:21] LABS: RPR Confirm - Less than 1 yr REACTIVE (Nonreactive)
[2019-12-07] MEDS: HEPARIN DRIP 25,000 UNITS/500 ML PREMIX IV SCH (10:25)
[2019-12-07] MEDS: PIPERACILLIN/TAZOBACTAM 3,375 MG in SODIUM CHLORIDE 0.9% 100 ML IV SCH (10:34)
[2019-12-07] MEDS ORDERED: GLUCAGON 1 MG VIAL IM PRN (11:35)
[2019-12-07] MEDS ORDERED: DEXTROSE 10% 250 ML BAG IV PRN (11:35)
[2019-12-07] MEDS: DEXAMETHASONE 4 MG/1 ML VIAL IV SCH (15:45)
[2019-12-07] MEDS: ASCORBIC ACID 500 MG TABLET PO SCH ×2 (15:45→21:45)
[2019-12-07] MEDS ORDERED: BICILLIN CR 1,200,000 UNIT/2 ML SYRINGE IM ONE (20:00)
[2019-12-08] MEDS: INSULIN LISPRO 100 UNIT/ML SUBCUT SCH ×4 (00:24→18:48)
[2019-12-08] MEDS: PIPERACILLIN/TAZOBACTAM 3,375 MG in SODIUM CHLORIDE 0.9% 100 ML IV SCH ×3 (00:24→16:37)
[2019-12-08] MEDS: METOPROLOL TARTRATE 25 MG TABLET PO SCH ×2 (00:24→05:05)
[2019-12-08] MEDS: HEPARIN DRIP 25,000 UNITS/500 ML PREMIX IV SCH ×3 (00:25→16:30)
[2019-12-08] MEDS: ALUMINUM/MAGNES/SIMETH MAX STR 30 ML UDCUP PO SCH ×4 (00:28→18:49)
[2019-12-08 03:41] LABS: ABG Base Excess -1.9 MMOL/L (-2.5-2.5); ABG HCO3 22.8 MMOL/L (20-26); ABG Oxygen Saturation 98.3 % (95-100); ABG PCO2 38.5 MM HG (35-48); ABG PH 7.382 (7.35-7.45); ABG TCO2 20.8 MMOL/L (23-27); Allen Test Positive; Pt O2 Delivery Device Ventilator
[2019-12-08 03:48] LABS: Basophils % 0.1 % (0.0-0.8); Hematocrit 31.3 VOL% (42.0-52.0); Hemoglobin 9.6 GM/DL (14.0-18.0); Immature Granulocytes % 18.8 %; Immature Granulocytes Absolute 1.41 #; Lymphocytes # 0.4 10*3/uL (1.4-4.0); Lymphocytes % 5.1 % (21.2-54.2); Mean Corpuscular HGB Conc 30.7 GM/DL (32-36); Mean Corpuscular Volume 87.4 FL (87-102); Mean Platelet Volume 8.8 FL (9.6-12.0); Monocytes % 10.1 % (1.7-12.7); NRBC # 0.09 10*3/uL; Neutrophils % 65.9 % (38.7-73.9); Platelet Count 265 T/CUMM (130-400); Red Blood Count 3.58 MC/CUMM (3.8-5.5); Red Cell Distribution Width 17.9 % (9.3-17.3); White Blood Count 7.5 T/CUMM (4-12)
[2019-12-08 03:59] LABS: Alanine Aminotransferase 17 U/L (16-61); Albumin 1.4 G/DL (3.4-5.0); Alkaline Phosphatase 112 U/L (45-117); Aspartate Amino Transferase 20 U/L (0-37); Bilirubin,Total < 0.39 MG/DL (0.2-1.0); Blood Urea Nitrogen 26 MG/DL (7-18); Calcium 8.4 MG/DL (8.5-10.1); Estimated Glom Filtration Rate 143 ML/MIN; Ferritin 519.2 ng/ml (26-388); Glucose 102 MG/DL (74-106); Total Protein 5.8 G/DL (6.4-8.3); Troponin I < 0.015 NG/ML (0.00-0.045)
[2019-12-08 04:06] LABS: INR 1.1; PT Patient Result 11.7 SECS (9.8-11.9)
[2019-12-08 04:16] LABS: Band Neutrophils 6 % (0-10); Lymphocytes 5 % (20-55); Myelocytes 1 %; Segmented Neutrophils 56 % (50-85); Total Cells Counted 100
[2019-12-08 04:18] LABS: Anisocytosis 1+; Platelet Estimate Normal
[2019-12-08] MEDS: VALPROIC ACID 250 MG/5 ML UDCUP PO SCH ×4 (05:05→20:25)
[2019-12-08] MEDS: PHENYLEPHRINE DRIP 40 MG/250 ML PREMIX IV PRN (05:06)
[2019-12-08] MEDS: TRIMETH IV SCH ×5 (05:37→23:17)
[2019-12-08] MEDS: DEXTROSE 5% IV SCH ×5 (05:37→23:17)
[2019-12-08] MEDS: SULFAMETH IV SCH ×5 (05:37→23:17)
[2019-12-08] MEDS: CHOLECALCIFEROL 1,000 UNIT TABLET PO SCH (08:17)
[2019-12-08] MEDS: ZINC GLUCONATE 50 MG TABLET PO SCH (08:17)
[2019-12-08] MEDS: ASCORBIC ACID 500 MG TABLET PO SCH ×2 (08:17→20:25)
[2019-12-08] MEDS: FERROUS SULFATE 325 MG TABLET PO SCH ×2 (08:17→20:25)
[2019-12-08] MEDS: OMEPRAZOLE ODT 20 MG TABLET NG SCH (08:17)
[2019-12-08] MEDS: MONTELUKAST 10 MG TABLET PO SCH ×2 (08:18→20:25)
[2019-12-08] MEDS: MENTHOL/ZINC OXIDE OINT 71 GM JAR TOP SCH ×2 (10:33→20:24)
[2019-12-08] MEDS: SOTALOL 80 MG TABLET PO SCH ×2 (12:48→20:24)
[2019-12-08] MEDS: DEXAMETHASONE 4 MG/1 ML VIAL IV SCH (16:27)
[2019-12-08] MEDS: SODIUM CHLORIDE 0.9% 1,000 ML IV SCH ×3 (16:39→22:25)
[2019-12-09] MEDS: INSULIN LISPRO 100 UNIT/ML SUBCUT SCH ×5 (00:09→23:51)
[2019-12-09] MEDS: PIPERACILLIN/TAZOBACTAM 3,375 MG in SODIUM CHLORIDE 0.9% 100 ML IV SCH ×3 (00:10→15:53)
[2019-12-09] MEDS: ALUMINUM/MAGNES/SIMETH MAX STR 30 ML UDCUP PO SCH ×4 (00:39→18:35)
[2019-12-09] MEDS: VALPROIC ACID 250 MG/5 ML UDCUP PO SCH ×5 (02:35→21:45)
[2019-12-09 03:53] LABS: ABG Base Excess -1.8 MMOL/L (-2.5-2.5); ABG HCO3 21.6 MMOL/L (20-26); ABG Oxygen Saturation 98.4 % (95-100); ABG PCO2 31.8 MM HG (35-48); ABG PH 7.449 (7.35-7.45); ABG TCO2 22.5 MMOL/L (23-27); Allen Test Positive; Pt O2 Delivery Device Ventilator
[2019-12-09 04:41] LABS: Basophils % 0.2 % (0.0-0.8); Hematocrit 30.4 VOL% (42.0-52.0); Hemoglobin 9.5 GM/DL (14.0-18.0); Immature Granulocytes % 18.5 %; Immature Granulocytes Absolute 1.68 #; Lymphocytes # 0.6 10*3/uL (1.4-4.0); Lymphocytes % 6.6 % (21.2-54.2); Mean Corpuscular HGB Conc 31.3 GM/DL (32-36); Mean Corpuscular Volume 87.9 FL (87-102); Mean Platelet Volume 8.7 FL (9.6-12.0); NRBC # 0.03 10*3/uL; Neutrophils % 69.7 % (38.7-73.9); Platelet Count 246 T/CUMM (130-400); Red Blood Count 3.46 MC/CUMM (3.8-5.5); Red Cell Distribution Width 18.5 % (9.3-17.3); White Blood Count 9.1 T/CUMM (4-12)
[2019-12-09 05:04] LABS: Band Neutrophils 8 % (0-10); Hypochromasia 1+; Lymphocytes 5 % (20-55); Ovalocytes Slight; Platelet Estimate Adequate; Segmented Neutrophils 81 % (50-85); Total Cells Counted 100
[2019-12-09 05:08] LABS: Alanine Aminotransferase 24 U/L (16-61); Albumin 1.4 G/DL (3.4-5.0); Alkaline Phosphatase 132 U/L (45-117); Aspartate Amino Transferase 29 U/L (0-37); Bilirubin,Total < 0.39 MG/DL (0.2-1.0); Blood Urea Nitrogen 18 MG/DL (7-18); Calcium 8.6 MG/DL (8.5-10.1); Estimated Glom Filtration Rate 140 ML/MIN; Ferritin 566.4 ng/ml (26-388); Glucose 82 MG/DL (74-106); Osmolality,Calculated 273.8 MOS/KG (273-304); Total Protein 5.7 G/DL (6.4-8.3); Troponin I < 0.015 NG/ML (0.00-0.045)
[2019-12-09 05:10] LABS: INR 1.1
[2019-12-09] MEDS: HEPARIN DRIP 25,000 UNITS/500 ML PREMIX IV SCH (07:40)
[2019-12-09] MEDS: MONTELUKAST 10 MG TABLET PO SCH ×2 (09:06→21:45)
[2019-12-09] MEDS: ASCORBIC ACID 500 MG TABLET PO SCH ×2 (09:06→21:45)
[2019-12-09] MEDS: FERROUS SULFATE 325 MG TABLET PO SCH ×2 (09:06→21:45)
[2019-12-09] MEDS: OMEPRAZOLE ODT 20 MG TABLET NG SCH (09:06)
[2019-12-09] MEDS: SOTALOL 80 MG TABLET PO SCH ×2 (09:06→21:45)
[2019-12-09] MEDS: ZINC GLUCONATE 50 MG TABLET PO SCH (09:06)
[2019-12-09] MEDS: CHOLECALCIFEROL 1,000 UNIT TABLET PO SCH (09:06)
[2019-12-09] MEDS: MENTHOL/ZINC OXIDE OINT 71 GM JAR TOP SCH ×2 (09:31→21:45)
[2019-12-09] MEDS: SULFAMETH IV SCH ×4 (11:25→23:48)
[2019-12-09] MEDS: TRIMETH IV SCH ×4 (11:25→23:48)
[2019-12-09] MEDS: DEXTROSE 5% IV SCH ×4 (11:25→23:48)
[2019-12-09] MEDS: MORPHINE 4 MG/1 ML VIAL IV PRN ×2 (13:04→23:19)
[2019-12-09] MEDS ORDERED: METOPROLOL TARTRATE 5 MG/5 ML VIAL IV ONE (14:57)
[2019-12-09] MEDS: ACETAMINOPHEN 325 MG TABLET PO PRN (15:53)
[2019-12-09] MEDS: DEXAMETHASONE 4 MG/1 ML VIAL IV SCH (16:15)
[2019-12-09] MEDS: SODIUM CHLORIDE 0.9% 1,000 ML IV SCH (16:29)
[2019-12-09] MEDS: MEROPENEM 500 MG in SODIUM CHLORIDE 0.9% 100 ML IV SCH ×2 (18:26→20:34)
[2019-12-10] MEDS: HEPARIN DRIP 25,000 UNITS/500 ML PREMIX IV SCH ×3 (00:28→14:43)
[2019-12-10] MEDS: ALUMINUM/MAGNES/SIMETH MAX STR 30 ML UDCUP PO SCH ×2 (00:29→06:30)
[2019-12-10] MEDS: PIPERACILLIN/TAZOBACTAM 3,375 MG in SODIUM CHLORIDE 0.9% 100 ML IV SCH ×2 (00:37→09:56)
[2019-12-10] MEDS: SODIUM CHLORIDE 0.9% 1,000 ML IV SCH ×2 (02:02→14:51)
[2019-12-10] MEDS: MEROPENEM 500 MG in SODIUM CHLORIDE 0.9% 100 ML IV SCH ×4 (02:32→20:30)
[2019-12-10] MEDS: VALPROIC ACID 250 MG/5 ML UDCUP PO SCH ×4 (04:30→21:10)
[2019-12-10 04:57] LABS: ABG Base Excess -2.7 MMOL/L (-2.5-2.5); ABG HCO3 22.2 MMOL/L (20-26); ABG Oxygen Saturation 98.4 % (95-100); ABG PH 7.416 (7.35-7.45); ABG TCO2 19.4 MMOL/L (23-27); Allen Test Positive; Pt O2 Delivery Device Ventilator
[2019-12-10 05:22] LABS: Basophils % 0.3 % (0.0-0.8); Eosinophils # 0.1 10*3/uL (0.0-0.87); Eosinophils % 0.5 % (0.00-10.9); Hemoglobin 9.3 GM/DL (14.0-18.0); Immature Granulocytes % 23.6 %; Immature Granulocytes Absolute 3.05 #; Lymphocytes # 0.6 10*3/uL (1.4-4.0); Lymphocytes % 4.7 % (21.2-54.2); Mean Corpuscular HGB Conc 32.1 GM/DL (32-36); Mean Corpuscular Volume 86.1 FL (87-102); Mean Platelet Volume 8.8 FL (9.6-12.0); Monocytes % 2.2 % (1.7-12.7); NRBC # 0.03 10*3/uL; Neutrophils % 68.7 % (38.7-73.9); Platelet Count 218 T/CUMM (130-400); Red Blood Count 3.37 MC/CUMM (3.8-5.5); Red Cell Distribution Width 18.3 % (9.3-17.3); White Blood Count 12.9 T/CUMM (4-12)
[2019-12-10] MEDS: TRIMETH IV SCH ×4 (05:27→22:53)
[2019-12-10] MEDS: SULFAMETH IV SCH ×4 (05:27→22:53)
[2019-12-10] MEDS: DEXTROSE 5% IV SCH ×4 (05:27→22:53)
[2019-12-10 05:51] LABS: Band Neutrophils 5 % (0-10); Hypochromasia 1+; Lymphocytes 2 % (20-55); Microcytosis Slight; Myelocytes 1 %; Platelet Estimate Adequate; Segmented Neutrophils 89 % (50-85); Total Cells Counted 100
[2019-12-10 05:54] LABS: Albumin 1.3 G/DL (3.4-5.0); Bilirubin,Total 0.5 MG/DL (0.2-1.0); Calcium 8.5 MG/DL (8.5-10.1); Osmolality,Calculated 280.4 MOS/KG (273-304); Total Protein 5.6 G/DL (6.4-8.3)
[2019-12-10] MEDS: INSULIN LISPRO 100 UNIT/ML SUBCUT SCH ×4 (06:31→23:38)
[2019-12-10] MEDS ORDERED: MAGNESIUM SULF RIDER 2 GM in PREMIX 1 EACH IV ONE (08:00)
[2019-12-10] MEDS ORDERED: COLISTIMETHATE 150 MG VIAL RESP TX SCH ×2 (09:30→10:00)
[2019-12-10] MEDS: MONTELUKAST 10 MG TABLET PO SCH ×2 (09:57→20:30)
[2019-12-10] MEDS: FERROUS SULFATE 325 MG TABLET PO SCH ×2 (09:57→20:30)
[2019-12-10] MEDS: CHOLECALCIFEROL 1,000 UNIT TABLET PO SCH (09:57)
[2019-12-10] MEDS: ASCORBIC ACID 500 MG TABLET PO SCH ×2 (09:57→20:30)
[2019-12-10] MEDS: OMEPRAZOLE ODT 20 MG TABLET NG SCH (09:57)
[2019-12-10] MEDS: ZINC GLUCONATE 50 MG TABLET PO SCH (09:57)
[2019-12-10] MEDS ORDERED: COLISTIMETHATE 300 MG in SODIUM CHLORIDE 0.9% 100 ML IV ONE (10:00)
[2019-12-10] MEDS: MENTHOL/ZINC OXIDE OINT 71 GM JAR TOP SCH ×2 (10:00→20:30)
[2019-12-10] MEDS: SOTALOL 80 MG TABLET PO SCH (11:30)
[2019-12-10] MEDS ORDERED: FUROSEMIDE 40 MG/4 ML VIAL IV ONE (12:04)
[2019-12-10] MEDS: MAGNESIUM OXIDE 400 MG TABLET PO SCH ×2 (12:46→20:30)
[2019-12-10] MEDS: COLISTIMETHATE 150 MG VIAL RESP TX SCH (15:11)
[2019-12-10] MEDS: PHENYLEPHRINE DRIP 40 MG/250 ML PREMIX IV PRN (16:00)
[2019-12-10] MEDS: DEXAMETHASONE 4 MG/1 ML VIAL IV SCH (17:17)
[2019-12-10] MEDS: COLISTIMETHATE 150 MG in SODIUM CHLORIDE 0.9% 100 ML IV SCH (22:10)
[2019-12-11] MEDS: MEROPENEM 500 MG in SODIUM CHLORIDE 0.9% 100 ML IV SCH ×4 (02:02→21:05)
[2019-12-11] MEDS: VALPROIC ACID 250 MG/5 ML UDCUP PO SCH ×4 (03:39→21:35)
[2019-12-11 04:25] LABS: Basophils % 0.2 % (0.0-0.8); Eosinophils % 0.3 % (0.00-10.9); Hematocrit 30.1 VOL% (42.0-52.0); Hemoglobin 9.3 GM/DL (14.0-18.0); Immature Granulocytes % 17.2 %; Immature Granulocytes Absolute 1.51 #; Lymphocytes # 0.5 10*3/uL (1.4-4.0); Lymphocytes % 5.5 % (21.2-54.2); Mean Corpuscular HGB Conc 30.9 GM/DL (32-36); Mean Platelet Volume 9.1 FL (9.6-12.0); Monocytes % 2.9 % (1.7-12.7); NRBC # 0.02 10*3/uL; Neutrophils % 73.9 % (38.7-73.9); Platelet Count 234 T/CUMM (130-400); Red Blood Count 3.42 MC/CUMM (3.8-5.5); Red Cell Distribution Width 18.7 % (9.3-17.3); White Blood Count 8.8 T/CUMM (4-12)
[2019-12-11 04:43] LABS: Albumin 1.4 G/DL (3.4-5.0); Bilirubin,Total 0.5 MG/DL (0.2-1.0); Calcium 8.9 MG/DL (8.5-10.1); Osmolality,Calculated 282.3 MOS/KG (273-304); Total Protein 6.1 G/DL (6.4-8.3)
[2019-12-11 04:45] LABS: Allen Test Positive; Pt O2 Delivery Device Ventilator
[2019-12-11 04:49] LABS: Band Neutrophils 4 % (0-10); Hypochromasia 1+; Lymphocytes 4 % (20-55); Ovalocytes Slight; Platelet Estimate Adequate; Segmented Neutrophils 86 % (50-85); Total Cells Counted 100
[2019-12-11 04:50] LABS: Microcytosis Slight
[2019-12-11 04:51] LABS: ABG Base Excess -2.7 MMOL/L (-2.5-2.5); ABG HCO3 22.2 MMOL/L (20-26); ABG PCO2 34.2 MM HG (35-48); ABG PH 7.406 (7.35-7.45); ABG TCO2 19.8 MMOL/L (23-27)
[2019-12-11] MEDS: SODIUM CHLORIDE 0.9% 1,000 ML IV SCH ×3 (05:30→23:39)
[2019-12-11] MEDS: DEXTROSE 5% IV SCH ×4 (05:31→23:40)
[2019-12-11] MEDS: TRIMETH IV SCH ×4 (05:31→23:40)
[2019-12-11] MEDS: SULFAMETH IV SCH ×4 (05:31→23:40)
[2019-12-11] MEDS ORDERED: MAGNESIUM SULF RIDER 4 GM in PREMIX 1 EACH IV PRN ×2 (05:37→05:41)
[2019-12-11] MEDS ORDERED: MAGNESIUM SULF RIDER 2 GM in PREMIX 1 EACH IV PRN (05:37)
[2019-12-11] MEDS: MAGNESIUM SULF RIDER 2 GM in PREMIX 1 EACH IV PRN (05:53)
[2019-12-11] MEDS: INSULIN LISPRO 100 UNIT/ML SUBCUT SCH ×3 (06:00→17:40)
[2019-12-11] MEDS: COLISTIMETHATE 150 MG VIAL RESP TX SCH ×4 (07:45→23:18)
[2019-12-11] MEDS: HEPARIN DRIP 25,000 UNITS/500 ML PREMIX IV SCH ×2 (08:31→23:38)
[2019-12-11] MEDS: MENTHOL/ZINC OXIDE OINT 71 GM JAR TOP SCH ×2 (08:43→21:30)
[2019-12-11] MEDS: ZINC GLUCONATE 50 MG TABLET PO SCH (08:43)
[2019-12-11] MEDS: FERROUS SULFATE 325 MG TABLET PO SCH ×2 (08:44→21:35)
[2019-12-11] MEDS: ASCORBIC ACID 500 MG TABLET PO SCH ×2 (08:44→21:35)
[2019-12-11] MEDS: MAGNESIUM OXIDE 400 MG TABLET PO SCH ×2 (08:44→21:35)
[2019-12-11] MEDS: CHOLECALCIFEROL 1,000 UNIT TABLET PO SCH (08:44)
[2019-12-11] MEDS: OMEPRAZOLE ODT 20 MG TABLET NG SCH (08:44)
[2019-12-11] MEDS: MONTELUKAST 10 MG TABLET PO SCH ×2 (08:44→21:35)
[2019-12-11] MEDS: COLISTIMETHATE 150 MG in SODIUM CHLORIDE 0.9% 100 ML IV SCH ×2 (10:52→21:10)
[2019-12-11] MEDS: POTASSIUM CHLORIDE RIDER 20 MEQ in PREMIX 1 EACH IV PRN (14:10)
[2019-12-11] MEDS ORDERED: LORazepam 2 MG/1 ML VIAL ONE (16:37)
[2019-12-11] MEDS: DEXAMETHASONE 4 MG/1 ML VIAL IV SCH (16:40)
[2019-12-11] MEDS: LORazepam 2 MG/1 ML VIAL IV PRN (16:40)
[2019-12-11] MEDS: PHENYLEPHRINE DRIP 40 MG/250 ML PREMIX IV PRN (23:38)
[2019-12-12] MEDS: INSULIN LISPRO 100 UNIT/ML SUBCUT SCH ×4 (00:19→17:36)
[2019-12-12 04:17] LABS: ABG Base Excess -2.6 MMOL/L (-2.5-2.5); ABG HCO3 22.2 MMOL/L (20-26); ABG Oxygen Saturation 99.3 % (95-100); ABG PCO2 31.7 MM HG (35-48); ABG TCO2 19.4 MMOL/L (23-27); Allen Test Positive; Pt O2 Delivery Device Ventilator
[2019-12-12 04:47] LABS: Basophils % 0.3 % (0.0-0.8); Eosinophils % 0.3 % (0.00-10.9); Hematocrit 27.8 VOL% (42.0-52.0); Hemoglobin 8.7 GM/DL (14.0-18.0); Immature Granulocytes % 20.9 %; Immature Granulocytes Absolute 1.29 #; Lymphocytes # 0.4 10*3/uL (1.4-4.0); Lymphocytes % 6.8 % (21.2-54.2); Mean Corpuscular HGB Conc 31.3 GM/DL (32-36); Mean Corpuscular Volume 87.1 FL (87-102); Mean Platelet Volume 9.4 FL (9.6-12.0); Monocytes % 3.1 % (1.7-12.7); NRBC # 0.02 10*3/uL; Neutrophils % 68.6 % (38.7-73.9); Platelet Count 196 T/CUMM (130-400); Red Blood Count 3.19 MC/CUMM (3.8-5.5); Red Cell Distribution Width 18.8 % (9.3-17.3); White Blood Count 6.2 T/CUMM (4-12)
[2019-12-12 05:27] LABS: Band Neutrophils 1 % (0-10); Hypochromasia 1+; Lymphocytes 6 % (20-55); Nucleated Red Blood Cells 1 (0-5); Platelet Estimate Adequate; Segmented Neutrophils 90 % (50-85); Total Cells Counted 100
[2019-12-12 05:28] LABS: Microcytosis Slight
[2019-12-12] MEDS: MEROPENEM 500 MG in SODIUM CHLORIDE 0.9% 100 ML IV SCH ×4 (05:36→20:35)
[2019-12-12] MEDS: TRIMETH IV SCH ×4 (05:40→22:51)
[2019-12-12] MEDS: SULFAMETH IV SCH ×4 (05:40→22:51)
[2019-12-12] MEDS: DEXTROSE 5% IV SCH ×4 (05:40→22:51)
[2019-12-12] MEDS: VALPROIC ACID 250 MG/5 ML UDCUP PO SCH ×4 (06:02→20:40)
[2019-12-12] MEDS: HEPARIN DRIP 25,000 UNITS/500 ML PREMIX IV SCH ×2 (07:45→15:20)
[2019-12-12] MEDS: ZINC GLUCONATE 50 MG TABLET PO SCH (08:25)
[2019-12-12] MEDS: OMEPRAZOLE ODT 20 MG TABLET NG SCH (08:27)
[2019-12-12] MEDS: MONTELUKAST 10 MG TABLET PO SCH ×2 (08:27→20:40)
[2019-12-12] MEDS: MAGNESIUM OXIDE 400 MG TABLET PO SCH ×2 (08:27→20:40)
[2019-12-12] MEDS: FERROUS SULFATE 325 MG TABLET PO SCH ×2 (08:27→20:40)
[2019-12-12] MEDS: ASCORBIC ACID 500 MG TABLET PO SCH ×2 (08:27→20:40)
[2019-12-12] MEDS: CHOLECALCIFEROL 1,000 UNIT TABLET PO SCH (08:27)
[2019-12-12] MEDS: MENTHOL/ZINC OXIDE OINT 71 GM JAR TOP SCH ×2 (08:28→22:47)
[2019-12-12] MEDS: COLISTIMETHATE 150 MG VIAL RESP TX SCH ×3 (08:41→23:13)
[2019-12-12] MEDS: COLISTIMETHATE 150 MG in SODIUM CHLORIDE 0.9% 100 ML IV SCH ×2 (09:28→22:00)
[2019-12-12 12:45] LABS: Calcium 8.7 MG/DL (8.5-10.1); Osmolality,Calculated 279.4 MOS/KG (273-304)
[2019-12-12] MEDS: SODIUM CHLORIDE 0.9% 1,000 ML IV SCH (13:21)
[2019-12-12] MEDS: POTASSIUM CHLORIDE RIDER 20 MEQ in PREMIX 1 EACH IV PRN (13:29)
[2019-12-12] MEDS ORDERED: LORazepam 2 MG/1 ML VIAL ONE (15:56)
[2019-12-12] MEDS: LORazepam 2 MG/1 ML VIAL IV PRN (15:57)
[2019-12-12] MEDS: POTASSIUM CHLORIDE RIDER 10 MEQ in PREMIX 1 EACH IV PRN (16:02)
[2019-12-13] MEDS: INSULIN LISPRO 100 UNIT/ML SUBCUT SCH ×4 (01:08→18:10)
[2019-12-13 03:56] LABS: ABG Base Excess -2.6 MMOL/L (-2.5-2.5); ABG HCO3 22.2 MMOL/L (20-26); ABG Oxygen Saturation 98.8 % (95-100); ABG PCO2 34.9 MM HG (35-48); ABG TCO2 19.9 MMOL/L (23-27); Allen Test Positive; Pt O2 Delivery Device Ventilator
[2019-12-13] MEDS: PHENYLEPHRINE DRIP 40 MG/250 ML PREMIX IV PRN (05:00)
[2019-12-13] MEDS: SULFAMETH IV SCH ×3 (05:30→17:25)
[2019-12-13] MEDS: TRIMETH IV SCH ×3 (05:30→17:25)
[2019-12-13] MEDS: DEXTROSE 5% IV SCH ×3 (05:30→17:25)
[2019-12-13] MEDS: MEROPENEM 500 MG in SODIUM CHLORIDE 0.9% 100 ML IV SCH ×4 (06:09→20:36)
[2019-12-13] MEDS: VALPROIC ACID 250 MG/5 ML UDCUP PO SCH ×4 (06:09→22:39)
[2019-12-13 06:18] LABS: Basophils % 0.2 % (0.0-0.8); Eosinophils # 0.1 10*3/uL (0.0-0.87); Eosinophils % 1.4 % (0.00-10.9); Hematocrit 27.8 VOL% (42.0-52.0); Hemoglobin 8.7 GM/DL (14.0-18.0); Immature Granulocytes % 15.3 %; Immature Granulocytes Absolute 0.66 #; Lymphocytes # 0.3 10*3/uL (1.4-4.0); Lymphocytes % 7.7 % (21.2-54.2); Mean Corpuscular HGB Conc 31.3 GM/DL (32-36); Mean Corpuscular Volume 86.6 FL (87-102); Mean Platelet Volume 9.2 FL (9.6-12.0); Monocytes % 4.2 % (1.7-12.7); NRBC # 0.02 10*3/uL; Neutrophils % 71.2 % (38.7-73.9); Platelet Count 182 T/CUMM (130-400); Red Blood Count 3.21 MC/CUMM (3.8-5.5); Red Cell Distribution Width 19.1 % (9.3-17.3); White Blood Count 4.3 T/CUMM (4-12)
[2019-12-13] MEDS: SODIUM CHLORIDE 0.9% 1,000 ML IV SCH ×2 (06:25→16:00)
[2019-12-13 06:46] LABS: Band Neutrophils 8 % (0-10); Eosinophils 1 % (0-10); Lymphocytes 3 % (20-55); Nucleated Red Blood Cells 1 (0-5); Platelet Estimate Adequate; Segmented Neutrophils 78 % (50-85); Total Cells Counted 100
[2019-12-13 06:47] LABS: Hypochromasia Slight
[2019-12-13 06:48] LABS: Microcytosis Slight
[2019-12-13] MEDS: HEPARIN DRIP 25,000 UNITS/500 ML PREMIX IV SCH (08:05)
[2019-12-13] MEDS: COLISTIMETHATE 150 MG VIAL RESP TX SCH ×2 (08:05→16:01)
[2019-12-13] MEDS: MONTELUKAST 10 MG TABLET PO SCH ×2 (08:10→20:23)
[2019-12-13] MEDS: CHOLECALCIFEROL 1,000 UNIT TABLET PO SCH (08:10)
[2019-12-13] MEDS: ASCORBIC ACID 500 MG TABLET PO SCH ×2 (08:10→20:23)
[2019-12-13] MEDS: FERROUS SULFATE 325 MG TABLET PO SCH ×2 (08:10→20:24)
[2019-12-13] MEDS: MAGNESIUM OXIDE 400 MG TABLET PO SCH ×2 (08:10→20:24)
[2019-12-13] MEDS: MENTHOL/ZINC OXIDE OINT 71 GM JAR TOP SCH ×2 (08:10→20:24)
[2019-12-13] MEDS: ZINC GLUCONATE 50 MG TABLET PO SCH (08:10)
[2019-12-13] MEDS: OMEPRAZOLE ODT 20 MG TABLET NG SCH (08:10)
[2019-12-13] MEDS: AZITHROMYCIN 40 MG/ML 15 ML/BOTTLE PO SCH (08:11)
[2019-12-13 09:16] LABS: Calcium 8.4 MG/DL (8.5-10.1); Osmolality,Calculated 275.5 MOS/KG (273-304)
[2019-12-13] MEDS: COLISTIMETHATE 150 MG in SODIUM CHLORIDE 0.9% 100 ML IV SCH ×2 (10:19→22:38)
[2019-12-13] MEDS ORDERED: LORazepam 2 MG/1 ML VIAL ONE (13:11)
[2019-12-13] MEDS: LORazepam 2 MG/1 ML VIAL IV PRN (13:14)
[2019-12-13] MEDS: POTASSIUM CHLORIDE RIDER 20 MEQ in PREMIX 1 EACH IV PRN (13:58)
[2019-12-13] MEDS: MAGNESIUM SULF RIDER 2 GM in PREMIX 1 EACH IV PRN (16:12)
[2019-12-13] MEDS: ACETAMINOPHEN 325 MG TABLET PO PRN (16:19)
[2019-12-14] MEDS: SULFAMETH IV SCH ×4 (00:14→17:49)
[2019-12-14] MEDS: DEXTROSE 5% IV SCH ×4 (00:14→17:49)
[2019-12-14] MEDS: TRIMETH IV SCH ×4 (00:14→17:49)
[2019-12-14] MEDS: COLISTIMETHATE 150 MG VIAL RESP TX SCH ×4 (00:15→23:14)
[2019-12-14] MEDS: INSULIN LISPRO 100 UNIT/ML SUBCUT SCH ×4 (01:08→20:18)
[2019-12-14] MEDS: HEPARIN DRIP 25,000 UNITS/500 ML PREMIX IV SCH ×3 (02:15→21:11)
[2019-12-14] MEDS: MEROPENEM 500 MG in SODIUM CHLORIDE 0.9% 100 ML IV SCH ×4 (03:33→21:07)
[2019-12-14] MEDS: VALPROIC ACID 250 MG/5 ML UDCUP PO SCH ×4 (03:35→21:23)
[2019-12-14 03:59] LABS: ABG HCO3 18.8 MMOL/L (20-26); ABG Oxygen Saturation 98.1 % (95-100); ABG PCO2 30.1 MM HG (35-48); ABG PH 7.414 (7.35-7.45); ABG PO2 116.8 MM HG (80-95); ABG TCO2 19.7 MMOL/L (23-27); Allen Test Positive; Pt O2 Delivery Device Ventilator
[2019-12-14 04:29] LABS: Eosinophils # 0.1 10*3/uL (0.0-0.87); Eosinophils % 1.3 % (0.00-10.9); Hematocrit 26.4 VOL% (42.0-52.0); Hemoglobin 8.3 GM/DL (14.0-18.0); Immature Granulocytes % 20.7 %; Lymphocytes # 0.5 10*3/uL (1.4-4.0); Lymphocytes % 13.7 % (21.2-54.2); Mean Corpuscular HGB Conc 31.4 GM/DL (32-36); Mean Corpuscular Volume 86.6 FL (87-102); Mean Platelet Volume 9.4 FL (9.6-12.0); Monocytes % 2.6 % (1.7-12.7); Neutrophils % 61.7 % (38.7-73.9); Platelet Count 162 T/CUMM (130-400); Red Blood Count 3.05 MC/CUMM (3.8-5.5); Red Cell Distribution Width 19.2 % (9.3-17.3); White Blood Count 3.9 T/CUMM (4-12)
[2019-12-14 04:47] LABS: Calcium 7.8 MG/DL (8.5-10.1); Osmolality,Calculated 270.1 MOS/KG (273-304); Prealbumin 18.8 MG/DL (20-40)
[2019-12-14 05:17] LABS: Band Neutrophils 10 % (0-10); Eosinophils 1 % (0-10); Hypochromasia 1+; Lymphocytes 13 % (20-55); Metamyelocytes 1 %; Segmented Neutrophils 68 % (50-85); Total Cells Counted 100
[2019-12-14 05:18] LABS: Microcytosis 1+; Ovalocytes Slight; Platelet Estimate Adequate
[2019-12-14] MEDS ORDERED: SODIUM CHLORIDE 0.9% 1,000 ML IV PRN (09:10)
[2019-12-14] MEDS: SODIUM CHLORIDE 0.9% 1,000 ML IV SCH ×3 (09:11→21:21)
[2019-12-14] MEDS: ZINC GLUCONATE 50 MG TABLET PO SCH (09:12)
[2019-12-14] MEDS: OMEPRAZOLE ODT 20 MG TABLET NG SCH (09:12)
[2019-12-14] MEDS: MAGNESIUM OXIDE 400 MG TABLET PO SCH ×2 (09:13→21:06)
[2019-12-14] MEDS: MONTELUKAST 10 MG TABLET PO SCH ×2 (09:13→21:07)
[2019-12-14] MEDS: ASCORBIC ACID 500 MG TABLET PO SCH ×2 (09:13→21:07)
[2019-12-14] MEDS: CHOLECALCIFEROL 1,000 UNIT TABLET PO SCH (09:13)
[2019-12-14] MEDS: FERROUS SULFATE 325 MG TABLET PO SCH ×2 (09:13→21:06)
[2019-12-14] MEDS: COLISTIMETHATE 150 MG in SODIUM CHLORIDE 0.9% 100 ML IV SCH ×2 (09:17→21:51)
[2019-12-14] MEDS: MENTHOL/ZINC OXIDE OINT 71 GM JAR TOP SCH ×2 (09:19→21:06)
[2019-12-14] MEDS ORDERED: DEXAMETHASONE INJ 6 MG in SODIUM CHLORIDE 0.9% 50 ML IV SCH (10:00)
[2019-12-14] MEDS: DEXAMETHASONE 4 MG/1 ML VIAL IV SCH (12:00)
[2019-12-14] MEDS ORDERED: guaiFENesin 200 MG/10 ML UDCUP PO PRN (16:23)
[2019-12-14] MEDS ORDERED: MIDAZOLAM 2 MG/2 ML VIAL ONE (17:17)
[2019-12-14] MEDS ORDERED: MIDAZOLAM 2 MG/2 ML VIAL IV ONE (17:19)
[2019-12-14] MEDS ORDERED: CISATRACURIUM 200 MG in SODIUM CHLORIDE 0.9% 180 ML IV PRN (17:58)
[2019-12-14] MEDS: PHENYLEPHRINE DRIP 40 MG/250 ML PREMIX IV PRN (19:00)
[2019-12-15] MEDS: TRIMETH IV SCH ×5 (01:14→23:24)
[2019-12-15] MEDS: SULFAMETH IV SCH ×5 (01:14→23:24)
[2019-12-15] MEDS: DEXTROSE 5% IV SCH ×5 (01:14→23:24)
[2019-12-15] MEDS: INSULIN LISPRO 100 UNIT/ML SUBCUT SCH ×4 (01:15→17:35)
[2019-12-15] MEDS: VALPROIC ACID 250 MG/5 ML UDCUP PO SCH ×4 (03:49→21:46)
[2019-12-15] MEDS: MEROPENEM 500 MG in SODIUM CHLORIDE 0.9% 100 ML IV SCH ×2 (03:49→08:35)
[2019-12-15 04:09] LABS: ABG Base Excess -4.3 MMOL/L (-2.5-2.5); ABG HCO3 19.5 MMOL/L (20-26); ABG Oxygen Saturation 98.5 % (95-100); ABG PCO2 31.6 MM HG (35-48); ABG PH 7.409 (7.35-7.45); ABG PO2 144.6 MM HG (80-95); ABG TCO2 20.5 MMOL/L (23-27); Allen Test Positive; Pt O2 Delivery Device Ventilator
[2019-12-15 06:34] LABS: Eosinophils % 0.3 % (0.00-10.9); Hematocrit 30.5 VOL% (42.0-52.0); Hemoglobin 9.6 GM/DL (14.0-18.0); Immature Granulocytes % 14.3 %; Immature Granulocytes Absolute 0.41 #; Lymphocytes # 0.4 10*3/uL (1.4-4.0); Mean Corpuscular HGB Conc 31.5 GM/DL (32-36); Mean Corpuscular Volume 86.2 FL (87-102); Mean Platelet Volume 9.2 FL (9.6-12.0); Monocytes % 2.8 % (1.7-12.7); Neutrophils % 67.6 % (38.7-73.9); Platelet Count 142 T/CUMM (130-400); Red Blood Count 3.54 MC/CUMM (3.8-5.5); Red Cell Distribution Width 18.1 % (9.3-17.3); White Blood Count 2.9 T/CUMM (4-12)
[2019-12-15 07:04] LABS: Alanine Aminotransferase 99 U/L (16-61); Albumin 1.4 G/DL (3.4-5.0); Alkaline Phosphatase 172 U/L (45-117); Aspartate Amino Transferase 122 U/L (0-37); Blood Urea Nitrogen 15 MG/DL (7-18); Calcium 8.2 MG/DL (8.5-10.1); Estimated Glom Filtration Rate 150 ML/MIN; Ferritin 1534.5 ng/ml (26-388); Glucose 85 MG/DL (74-106); Osmolality,Calculated 278.4 MOS/KG (273-304); Total Protein 5.8 G/DL (6.4-8.3); Troponin I < 0.015 NG/ML (0.00-0.045)
[2019-12-15 07:07] LABS: Anisocytosis 1+; Band Neutrophils 30 % (0-10); Lymphocytes 6 % (20-55); Metamyelocytes 2 %; Platelet Estimate Adequate; Segmented Neutrophils 57 % (50-85); Total Cells Counted 100
[2019-12-15] MEDS: MAGNESIUM SULF RIDER 2 GM in PREMIX 1 EACH IV PRN (07:34)
[2019-12-15 07:45] LABS: Sedimentation Rate-Westergren 110 MM/HR (0-15)
[2019-12-15] MEDS: COLISTIMETHATE 150 MG VIAL RESP TX SCH (07:51)
[2019-12-15 08:17] LABS: Chlamydophila pneumoniae Not Detected (NotDetected); Enterovirus A+B+C Not Detected (NotDetected); Enterovirus D Not Detected (NotDetected); Haemophilus influenzae Not Detected (NotDetected); Human Metapneumovirus Not Detected (NotDetected); Legionella pneumophila Not Detected (NotDetected); Mycoplasma pneumoniae Not Detected (NotDetected); Respiratory Syncytial Virus Not Detected (NotDetected); Rhinovirus A+B+C Probes Not Detected (NotDetected)
[2019-12-15] MEDS: DEXAMETHASONE 4 MG/1 ML VIAL IV SCH (08:34)
[2019-12-15] MEDS: ZINC GLUCONATE 50 MG TABLET PO SCH (08:34)
[2019-12-15] MEDS: MONTELUKAST 10 MG TABLET PO SCH ×2 (08:35→21:05)
[2019-12-15] MEDS: ASCORBIC ACID 500 MG TABLET PO SCH ×2 (08:35→21:05)
[2019-12-15] MEDS: OMEPRAZOLE ODT 20 MG TABLET NG SCH (08:35)
[2019-12-15] MEDS: CHOLECALCIFEROL 1,000 UNIT TABLET PO SCH (08:35)
[2019-12-15] MEDS: FERROUS SULFATE 325 MG TABLET PO SCH ×2 (08:35→21:05)
[2019-12-15] MEDS: MAGNESIUM OXIDE 400 MG TABLET PO SCH ×2 (08:35→21:05)
[2019-12-15] MEDS: MENTHOL/ZINC OXIDE OINT 71 GM JAR TOP SCH ×2 (08:36→21:05)
[2019-12-15] MEDS: BICTEGRAV EMTRICIT TENOFOV ALA PO SCH (10:20)
[2019-12-15 11:18] LABS: Apearance,Urine CLEAR (Clear); Bilirubin,Urine Negative (Negative); Blood, Urine Large mg/dL (Negative); Glucose,Urine (UA) Negative (Negative); Ketones,Urine Negative (Negative); Nitrite,Urine Negative (Negative); Protein,Urine Negative; RBC,Urine 115 /HPF (0-4); Urine Color Straw (Yellow); Urine Specific Gravity 1.006 (1.001-1.035); Urine Urobilinogen < 2.0 EU/DL (0.2-1.0); WBC,Urine 4 /HPF (0-6)
[2019-12-15] MEDS: AMIKACIN 1,000 MG in SODIUM CHLORIDE 0.9% 100 ML IV SCH (12:10)
[2019-12-15] MEDS: SODIUM CHLORIDE 0.9% 1,000 ML IV SCH (12:49)
[2019-12-15] MEDS: LORazepam 2 MG/1 ML VIAL IV PRN (18:20)
[2019-12-15] MEDS: HEPARIN DRIP 25,000 UNITS/500 ML PREMIX IV SCH (21:05)
[2019-12-16] MEDS: INSULIN LISPRO 100 UNIT/ML SUBCUT SCH ×5 (00:09→23:12)
[2019-12-16] MEDS: VALPROIC ACID 250 MG/5 ML UDCUP PO SCH ×4 (04:00→21:46)
[2019-12-16 04:30] LABS: Basophils % 0.4 % (0.0-0.8); Eosinophils % 0.4 % (0.00-10.9); Hemoglobin 9.6 GM/DL (14.0-18.0); Immature Granulocytes % 16.5 %; Immature Granulocytes Absolute 0.44 #; Lymphocytes # 0.6 10*3/uL (1.4-4.0); Lymphocytes % 22.5 % (21.2-54.2); Mean Corpuscular Volume 88.3 FL (87-102); Mean Platelet Volume 9.3 FL (9.6-12.0); Monocytes % 2.6 % (1.7-12.7); Neutrophils % 57.6 % (38.7-73.9); Platelet Count 144 T/CUMM (130-400); Red Blood Count 3.51 MC/CUMM (3.8-5.5); Red Cell Distribution Width 18.5 % (9.3-17.3); White Blood Count 2.7 T/CUMM (4-12)
[2019-12-16 04:39] LABS: Allen Test Positive; Pt O2 Delivery Device Ventilator
[2019-12-16 04:41] LABS: ABG Base Excess -6.1 MMOL/L (-2.5-2.5); ABG HCO3 18.3 MMOL/L (20-26); ABG Oxygen Saturation 98.1 % (95-100); ABG PCO2 32.1 MM HG (35-48); ABG PH 7.373 (7.35-7.45); ABG PO2 123.9 MM HG (80-95); ABG TCO2 19.3 MMOL/L (23-27)
[2019-12-16 04:48] LABS: Alanine Aminotransferase 102 U/L (16-61); Albumin 1.4 G/DL (3.4-5.0); Alkaline Phosphatase 153 U/L (45-117); Aspartate Amino Transferase 101 U/L (0-37); Bilirubin,Total < 0.39 MG/DL (0.2-1.0); Blood Urea Nitrogen 14 MG/DL (7-18); Calcium 8.4 MG/DL (8.5-10.1); Estimated Glom Filtration Rate 148 ML/MIN; Glucose 99 MG/DL (74-106); Osmolality,Calculated 277.5 MOS/KG (273-304)
[2019-12-16 04:52] LABS: Troponin I < 0.015 NG/ML (0.00-0.045)
[2019-12-16] MEDS: SULFAMETH IV SCH ×2 (04:56→12:33)
[2019-12-16] MEDS: TRIMETH IV SCH ×2 (04:56→12:33)
[2019-12-16] MEDS: DEXTROSE 5% IV SCH ×2 (04:56→12:33)
[2019-12-16 05:02] LABS: Ferritin 1359.2 ng/ml (26-388)
[2019-12-16 05:31] LABS: Band Neutrophils 8 % (0-10); Lymphocytes 25 % (20-55); Segmented Neutrophils 64 % (50-85); Total Cells Counted 100
[2019-12-16 05:32] LABS: Atypical Lymphocytes Few; Hypochromasia 1+; Microcytosis 1+; Ovalocytes Slight; Tear Drop Cells Slight
[2019-12-16] MEDS: POTASSIUM CHLORIDE RIDER 20 MEQ in PREMIX 1 EACH IV PRN (06:27)
[2019-12-16] MEDS: MAGNESIUM SULF RIDER 2 GM in PREMIX 1 EACH IV PRN (06:29)
[2019-12-16] MEDS: HEPARIN DRIP 25,000 UNITS/500 ML PREMIX IV SCH ×2 (08:54→21:27)
[2019-12-16] MEDS: BICTEGRAV EMTRICIT TENOFOV ALA PO SCH (09:02)
[2019-12-16] MEDS: MONTELUKAST 10 MG TABLET PO SCH ×2 (09:03→21:45)
[2019-12-16] MEDS: CHOLECALCIFEROL 1,000 UNIT TABLET PO SCH (09:03)
[2019-12-16] MEDS: ZINC GLUCONATE 50 MG TABLET PO SCH (09:03)
[2019-12-16] MEDS: MAGNESIUM OXIDE 400 MG TABLET PO SCH ×2 (09:03→21:45)
[2019-12-16] MEDS: OMEPRAZOLE ODT 20 MG TABLET NG SCH (09:03)
[2019-12-16] MEDS: FERROUS SULFATE 325 MG TABLET PO SCH ×2 (09:04→21:45)
[2019-12-16] MEDS: DEXAMETHASONE 4 MG/1 ML VIAL IV SCH (09:04)
[2019-12-16] MEDS: ASCORBIC ACID 500 MG TABLET PO SCH ×2 (09:04→21:45)
[2019-12-16] MEDS: MENTHOL/ZINC OXIDE OINT 71 GM JAR TOP SCH ×2 (09:04→21:45)
[2019-12-16] MEDS ORDERED: LORazepam 2 MG/1 ML VIAL ONE (11:48)
[2019-12-16] MEDS: LORazepam 2 MG/1 ML VIAL IV PRN (11:52)
[2019-12-16] MEDS: AMIKACIN 1,000 MG in SODIUM CHLORIDE 0.9% 100 ML IV SCH (11:57)
[2019-12-16] MEDS ORDERED: MAGNESIUM SULF RIDER 1 GM in PREMIX 1 EACH IV ONE (15:24)
[2019-12-16] MEDS ORDERED: POTASSIUM CHLORIDE 20 MEQ/15 ML UDCUP PER TUBE ONE (15:24)
[2019-12-16 15:48] LABS: ABG Base Excess -5.5 MMOL/L (-2.5-2.5); ABG HCO3 19.9 MMOL/L (20-26); ABG Oxygen Saturation 98.3 % (95-100); ABG PCO2 31.6 MM HG (35-48); ABG PH 7.381 (7.35-7.45); ABG TCO2 16.9 MMOL/L (23-27)
[2019-12-16] MEDS: FUROSEMIDE 20 MG/2 ML VIAL IV SCH (16:39)
[2019-12-17 03:56] LABS: ABG Base Excess -2.3 MMOL/L (-2.5-2.5); ABG Oxygen Saturation 96.7 % (95-100); ABG PCO2 27.2 MM HG (35-48); ABG PH 7.485 (7.35-7.45); ABG PO2 86.4 MM HG (80-95); ABG TCO2 20.9 MMOL/L (23-27); Allen Test Positive; Pt O2 Delivery Device Ventilator
[2019-12-17 04:08] LABS: Basophils % 0.4 % (0.0-0.8); Eosinophils % 0.4 % (0.00-10.9); Hematocrit 33.4 VOL% (42.0-52.0); Hemoglobin 10.7 GM/DL (14.0-18.0); Immature Granulocytes % 18.2 %; Immature Granulocytes Absolute 0.44 #; Lymphocytes # 0.6 10*3/uL (1.4-4.0); Lymphocytes % 22.7 % (21.2-54.2); Mean Corpuscular Volume 85.9 FL (87-102); Mean Platelet Volume 9.4 FL (9.6-12.0); Monocytes % 3.3 % (1.7-12.7); Platelet Count 160 T/CUMM (130-400); Red Blood Count 3.89 MC/CUMM (3.8-5.5); Red Cell Distribution Width 18.6 % (9.3-17.3); White Blood Count 2.4 T/CUMM (4-12)
[2019-12-17 04:29] LABS: Calcium 8.7 MG/DL (8.5-10.1); Osmolality,Calculated 271.8 MOS/KG (273-304)
[2019-12-17 04:45] LABS: Alanine Aminotransferase 142 U/L (16-61); Albumin 1.7 G/DL (3.4-5.0); Alkaline Phosphatase 295 U/L (45-117); Aspartate Amino Transferase 113 U/L (0-37); Bilirubin,Direct < 0.100 MG/DL (0.0-0.20); Bilirubin,Indirect 0.9 MG/DL (0.0-1.0); Total Protein 6.1 G/DL (6.4-8.3)
[2019-12-17] MEDS: VALPROIC ACID 250 MG/5 ML UDCUP PO SCH ×4 (04:58→21:30)
[2019-12-17] MEDS: HEPARIN DRIP 25,000 UNITS/500 ML PREMIX IV SCH ×2 (05:00→11:16)
[2019-12-17] MEDS: POTASSIUM CHLORIDE RIDER 10 MEQ in PREMIX 1 EACH IV PRN (05:02)
[2019-12-17] MEDS: INSULIN LISPRO 100 UNIT/ML SUBCUT SCH ×3 (05:16→17:56)
[2019-12-17 05:46] LABS: Atypical Lymphocytes Few; Band Neutrophils 9 % (0-10); Eosinophils 1 % (0-10); Hypochromasia 1+; Lymphocytes 17 % (20-55); Microcytosis 1+; Segmented Neutrophils 66 % (50-85); Total Cells Counted 100
[2019-12-17 05:47] LABS: Platelet Estimate Adequate
[2019-12-17] MEDS ORDERED: LORazepam 2 MG/1 ML VIAL ONE (06:09)
[2019-12-17] MEDS: FUROSEMIDE 20 MG/2 ML VIAL IV SCH (08:41)
[2019-12-17] MEDS: DEXAMETHASONE 4 MG/1 ML VIAL IV SCH (08:41)
[2019-12-17] MEDS: MENTHOL/ZINC OXIDE OINT 71 GM JAR TOP SCH ×2 (08:43→21:30)
[2019-12-17] MEDS ORDERED: ACETAMINOPHEN 650 MG SUPP RECTAL PRN (08:48)
[2019-12-17] MEDS: AMIKACIN 1,000 MG in SODIUM CHLORIDE 0.9% 100 ML IV SCH (11:22)
[2019-12-17] MEDS: MAGNESIUM SULF RIDER 2 GM in PREMIX 1 EACH IV PRN (11:22)
[2019-12-17] MEDS: MAGNESIUM OXIDE 400 MG TABLET PO SCH ×2 (11:28→21:30)
[2019-12-17] MEDS: FERROUS SULFATE 325 MG TABLET PO SCH ×2 (11:28→21:30)
[2019-12-17] MEDS: MONTELUKAST 10 MG TABLET PO SCH ×2 (11:29→21:30)
[2019-12-17] MEDS: DESITIN 4OZ/NYSTATIN 15 GRAM MIXTURE PASTE TOP SCH ×2 (11:29→21:30)
[2019-12-17] MEDS: ASCORBIC ACID 500 MG TABLET PO SCH ×2 (11:29→21:30)
[2019-12-17] MEDS ORDERED: SODIUM CHLORIDE 0.9% 500 ML IV ONE (15:34)
[2019-12-17] MEDS: SULFAMETHOX/TRIMETHOPRIM 800-160 MG TABLET PER TUBE SCH (16:01)
[2019-12-17] MEDS: BICTEGRAV EMTRICIT TENOFOV ALA PO SCH (16:02)
[2019-12-17] MEDS: OMEPRAZOLE ODT 20 MG TABLET NG SCH (16:02)
[2019-12-17] MEDS: CHOLECALCIFEROL 1,000 UNIT TABLET PO SCH (16:02)
[2019-12-17] MEDS: ZINC GLUCONATE 50 MG TABLET PO SCH (16:02)
[2019-12-17] MEDS: COLISTIMETHATE 150 MG VIAL RESP TX SCH ×2 (17:20→23:08)
[2019-12-18] MEDS: INSULIN LISPRO 100 UNIT/ML SUBCUT SCH ×4 (00:43→17:34)
[2019-12-18 02:46] LABS: ABG HCO3 25.2 MMOL/L (20-26); ABG Oxygen Saturation 92.8 % (95-100); ABG PCO2 32.7 MM HG (35-48); ABG PH 7.473 (7.35-7.45); ABG PO2 63.9 MM HG (80-95); Allen Test Positive; Pt O2 Delivery Device Room Air
[2019-12-18] MEDS: VALPROIC ACID 250 MG/5 ML UDCUP PO SCH ×4 (04:55→22:00)
[2019-12-18 05:41] LABS: Albumin 1.8 G/DL (3.4-5.0); Bilirubin,Total 0.4 MG/DL (0.2-1.0); Calcium 8.9 MG/DL (8.5-10.1); Osmolality,Calculated 267.1 MOS/KG (273-304); Total Protein 6.6 G/DL (6.4-8.3)
[2019-12-18 05:54] LABS: Ferritin 1714.4 ng/ml (26-388)
[2019-12-18] MEDS: HEPARIN DRIP 25,000 UNITS/500 ML PREMIX IV SCH (07:52)
[2019-12-18] MEDS: OMEPRAZOLE ODT 20 MG TABLET NG SCH (08:14)
[2019-12-18] MEDS: CHOLECALCIFEROL 1,000 UNIT TABLET PO SCH (08:14)
[2019-12-18] MEDS: MONTELUKAST 10 MG TABLET PO SCH ×2 (08:14→21:00)
[2019-12-18] MEDS: ZINC GLUCONATE 50 MG TABLET PO SCH (08:14)
[2019-12-18] MEDS: COLISTIMETHATE 150 MG VIAL RESP TX SCH ×3 (08:14→23:40)
[2019-12-18] MEDS: BICTEGRAV EMTRICIT TENOFOV ALA PO SCH (08:14)
[2019-12-18] MEDS: FERROUS SULFATE 325 MG TABLET PO SCH ×2 (08:14→21:00)
[2019-12-18] MEDS: ASCORBIC ACID 500 MG TABLET PO SCH ×2 (08:14→21:00)
[2019-12-18] MEDS: MENTHOL/ZINC OXIDE OINT 71 GM JAR TOP SCH ×2 (08:15→21:00)
[2019-12-18] MEDS: SULFAMETHOX/TRIMETHOPRIM 800-160 MG TABLET PER TUBE SCH (08:15)
[2019-12-18] MEDS: MAGNESIUM OXIDE 400 MG TABLET PO SCH ×2 (08:15→21:00)
[2019-12-18] MEDS: DEXAMETHASONE 4 MG/1 ML VIAL IV SCH (08:15)
[2019-12-18] MEDS: DESITIN 4OZ/NYSTATIN 15 GRAM MIXTURE PASTE TOP SCH ×2 (08:16→21:00)
[2019-12-18 09:41] LABS: Basophils % 0.3 % (0.0-0.8); Eosinophils % 0.7 % (0.00-10.9); Hematocrit 34.5 VOL% (42.0-52.0); Immature Granulocytes % 7.7 %; Immature Granulocytes Absolute 0.22 #; Lymphocytes # 0.7 10*3/uL (1.4-4.0); Lymphocytes % 23.1 % (21.2-54.2); Mean Corpuscular HGB Conc 31.9 GM/DL (32-36); Mean Corpuscular Volume 85.8 FL (87-102); Mean Platelet Volume 9.8 FL (9.6-12.0); Monocytes % 3.8 % (1.7-12.7); Neutrophils % 64.4 % (38.7-73.9); Platelet Count 164 T/CUMM (130-400); Red Blood Count 4.02 MC/CUMM (3.8-5.5); Red Cell Distribution Width 18.3 % (9.3-17.3); White Blood Count 2.9 T/CUMM (4-12)
[2019-12-18] MEDS: AMIKACIN 1,000 MG in SODIUM CHLORIDE 0.9% 100 ML IV SCH (10:43)
[2019-12-18] MEDS: MAGNESIUM SULF RIDER 2 GM in PREMIX 1 EACH IV PRN (10:46)
[2019-12-18 11:22] LABS: Band Neutrophils 8 % (0-10); Hypochromasia 2+; Lymphocytes 22 % (20-55); Metamyelocytes 3 %; Segmented Neutrophils 58 % (50-85); Total Cells Counted 100
[2019-12-18 11:23] LABS: Ovalocytes Few; Platelet Estimate Adequate; Spherocytes Few
[2019-12-18] MEDS: ACETAMINOPHEN 325 MG TABLET PO PRN (13:50)
[2019-12-19] MEDS: INSULIN LISPRO 100 UNIT/ML SUBCUT SCH ×4 (00:44→17:51)
[2019-12-19] MEDS: VALPROIC ACID 250 MG/5 ML UDCUP PO SCH ×4 (05:36→22:03)
[2019-12-19] MEDS: COLISTIMETHATE 150 MG VIAL RESP TX SCH ×3 (08:02→23:11)
[2019-12-19] MEDS: DEXAMETHASONE 4 MG/1 ML VIAL IV SCH (08:14)
[2019-12-19] MEDS: BICTEGRAV EMTRICIT TENOFOV ALA PO SCH (08:14)
[2019-12-19] MEDS: SULFAMETHOX/TRIMETHOPRIM 800-160 MG TABLET PER TUBE SCH (08:14)
[2019-12-19] MEDS: MENTHOL/ZINC OXIDE OINT 71 GM JAR TOP SCH ×2 (08:14→21:30)
[2019-12-19] MEDS: FERROUS SULFATE 325 MG TABLET PO SCH ×2 (08:14→21:30)
[2019-12-19] MEDS: MONTELUKAST 10 MG TABLET PO SCH ×2 (08:15→21:30)
[2019-12-19] MEDS: ASCORBIC ACID 500 MG TABLET PO SCH ×2 (08:15→21:30)
[2019-12-19] MEDS: CHOLECALCIFEROL 1,000 UNIT TABLET PO SCH (08:15)
[2019-12-19] MEDS: ZINC GLUCONATE 50 MG TABLET PO SCH (08:15)
[2019-12-19] MEDS: DESITIN 4OZ/NYSTATIN 15 GRAM MIXTURE PASTE TOP SCH ×2 (08:15→22:02)
[2019-12-19] MEDS: OMEPRAZOLE ODT 20 MG TABLET NG SCH (08:15)
[2019-12-19] MEDS: MAGNESIUM OXIDE 400 MG TABLET PO SCH ×2 (08:15→21:30)
[2019-12-19 08:41] LABS: Alanine Aminotransferase 140 U/L (16-61); Albumin 1.8 G/DL (3.4-5.0); Alkaline Phosphatase 236 U/L (45-117); Aspartate Amino Transferase 85 U/L (0-37); Bilirubin,Total < 0.39 MG/DL (0.2-1.0); Blood Urea Nitrogen 12 MG/DL (7-18); Estimated Glom Filtration Rate 146 ML/MIN; Glucose 88 MG/DL (74-106); Total Protein 6.8 G/DL (6.4-8.3)
[2019-12-19 09:00] LABS: ABG Base Excess 3.2 MMOL/L (-2.5-2.5); ABG HCO3 27.2 MMOL/L (20-26); ABG Oxygen Saturation 91.6 % (95-100); ABG PCO2 30.1 MM HG (35-48); ABG PH 7.532 (7.35-7.45); ABG PO2 57.8 MM HG (80-95); ABG TCO2 22.4 MMOL/L (23-27)
[2019-12-19 09:00] LABS: Basophils % 0.4 % (0.0-0.8); Eosinophils % 1.8 % (0.00-10.9); Hematocrit 33.3 VOL% (42.0-52.0); Hemoglobin 10.8 GM/DL (14.0-18.0); Immature Granulocytes % 10.6 %; Immature Granulocytes Absolute 0.24 #; Lymphocytes # 0.6 10*3/uL (1.4-4.0); Lymphocytes % 25.6 % (21.2-54.2); Mean Corpuscular HGB Conc 32.4 GM/DL (32-36); Mean Corpuscular Volume 83.7 FL (87-102); Mean Platelet Volume 9.3 FL (9.6-12.0); Monocytes % 8.8 % (1.7-12.7); Neutrophils % 52.8 % (38.7-73.9); Platelet Count 154 T/CUMM (130-400); Red Blood Count 3.98 MC/CUMM (3.8-5.5); Red Cell Distribution Width 17.8 % (9.3-17.3); White Blood Count 2.3 T/CUMM (4-12)
[2019-12-19] MEDS: ACETAMINOPHEN 325 MG TABLET PO PRN (09:30)
[2019-12-19 09:31] LABS: Anisocytosis 1+; Band Neutrophils 19 % (0-10); Eosinophils 2 % (0-10); Lymphocytes 25 % (20-55); Metamyelocytes 1 %; Platelet Estimate Normal; Segmented Neutrophils 44 % (50-85); Total Cells Counted 100
[2019-12-19 09:32] LABS: Macrocytosis Slight
[2019-12-19] MEDS ORDERED: MORPHINE 4 MG/1 ML VIAL ONE (09:32)
[2019-12-19] MEDS: MORPHINE 4 MG/1 ML VIAL IV PRN ×3 (09:48→19:48)
[2019-12-19] MEDS: AMIKACIN 1,000 MG in SODIUM CHLORIDE 0.9% 100 ML IV SCH (10:15)
[2019-12-19] MEDS: MAGNESIUM SULF RIDER 2 GM in PREMIX 1 EACH IV PRN (10:42)
[2019-12-19] MEDS: HEPARIN DRIP 25,000 UNITS/500 ML PREMIX IV SCH (11:00)
[2019-12-19] MEDS: POTASSIUM CHLORIDE RIDER 20 MEQ in PREMIX 1 EACH IV PRN (11:19)
[2019-12-19] MEDS: ENOXAPARIN 40 MG/0.4 ML SYRINGE SUBCUT SCH ×2 (11:19→23:45)
[2019-12-19 15:00] LABS: ABG Base Excess 0.8 MMOL/L (-2.5-2.5); ABG HCO3 25.2 MMOL/L (20-26); ABG PCO2 35.4 MM HG (35-48); ABG PH 7.447 (7.35-7.45); ABG TCO2 21.7 MMOL/L (23-27)
[2019-12-19] MEDS ORDERED: MAGNESIUM SULF RIDER 4 GM in PREMIX 1 EACH IV ONE (19:42)
[2019-12-20] MEDS: INSULIN LISPRO 100 UNIT/ML SUBCUT SCH ×5 (00:30→23:45)
[2019-12-20] MEDS: VALPROIC ACID 250 MG/5 ML UDCUP PO SCH ×4 (05:00→21:15)
[2019-12-20 05:03] LABS: ABG HCO3 27.9 MMOL/L (20-26); ABG Oxygen Saturation 95.3 % (95-100); ABG PCO2 37.3 MM HG (35-48); ABG PH 7.476 (7.35-7.45); ABG PO2 73.8 MM HG (80-95); ABG TCO2 23.6 MMOL/L (23-27); Allen Test Positive
[2019-12-20 05:27] LABS: Basophils % 0.5 % (0.0-0.8); Eosinophils # 0.1 10*3/uL (0.0-0.87); Eosinophils % 4.8 % (0.00-10.9); Hematocrit 31.5 VOL% (42.0-52.0); Hemoglobin 10.1 GM/DL (14.0-18.0); Immature Granulocytes % 9.1 %; Immature Granulocytes Absolute 0.17 #; Lymphocytes # 0.5 10*3/uL (1.4-4.0); Lymphocytes % 26.2 % (21.2-54.2); Mean Corpuscular HGB Conc 32.1 GM/DL (32-36); Mean Corpuscular Volume 85.6 FL (87-102); Monocytes % 11.2 % (1.7-12.7); Neutrophils % 48.2 % (38.7-73.9); Platelet Count 172 T/CUMM (130-400); Red Blood Count 3.68 MC/CUMM (3.8-5.5); Red Cell Distribution Width 17.6 % (9.3-17.3); White Blood Count 1.9 T/CUMM (4-12)
[2019-12-20 05:36] LABS: Alanine Aminotransferase 119 U/L (16-61); Albumin 1.7 G/DL (3.4-5.0); Alkaline Phosphatase 217 U/L (45-117); Aspartate Amino Transferase 75 U/L (0-37); Bilirubin,Total < 0.39 MG/DL (0.2-1.0); Blood Urea Nitrogen 14 MG/DL (7-18); Calcium 9.2 MG/DL (8.5-10.1); Estimated Glom Filtration Rate 155 ML/MIN; Glucose 89 MG/DL (74-106); Total Protein 6.5 G/DL (6.4-8.3)
[2019-12-20 06:23] LABS: Anisocytosis 1+; Atypical Lymphocytes Few; Band Neutrophils 13 % (0-10); Eosinophils 7 % (0-10); Lymphocytes 19 % (20-55); Metamyelocytes 1 %; Nucleated Red Blood Cells 1 (0-5); Platelet Estimate Normal; Segmented Neutrophils 51 % (50-85); Smudge Cells Few; Total Cells Counted 100
[2019-12-20] MEDS: COLISTIMETHATE 150 MG VIAL RESP TX SCH ×3 (07:30→23:08)
[2019-12-20] MEDS: FERROUS SULFATE 325 MG TABLET PO SCH ×2 (08:00→21:15)
[2019-12-20] MEDS: MAGNESIUM OXIDE 400 MG TABLET PO SCH ×2 (08:00→21:15)
[2019-12-20] MEDS: ASCORBIC ACID 500 MG TABLET PO SCH ×2 (08:00→21:15)
[2019-12-20] MEDS: ZINC GLUCONATE 50 MG TABLET PO SCH (08:00)
[2019-12-20] MEDS: CHOLECALCIFEROL 1,000 UNIT TABLET PO SCH (08:00)
[2019-12-20] MEDS: BICTEGRAV EMTRICIT TENOFOV ALA PO SCH (08:00)
[2019-12-20] MEDS: SULFAMETHOX/TRIMETHOPRIM 800-160 MG TABLET PER TUBE SCH (08:01)
[2019-12-20] MEDS: MONTELUKAST 10 MG TABLET PO SCH ×2 (08:01→21:15)
[2019-12-20] MEDS: OMEPRAZOLE ODT 20 MG TABLET NG SCH (08:01)
[2019-12-20] MEDS: DEXAMETHASONE 4 MG/1 ML VIAL IV SCH (08:01)
[2019-12-20] MEDS: DESITIN 4OZ/NYSTATIN 15 GRAM MIXTURE PASTE TOP SCH ×2 (08:02→21:15)
[2019-12-20] MEDS: AZITHROMYCIN 40 MG/ML 15 ML/BOTTLE PO SCH (08:02)
[2019-12-20] MEDS: MENTHOL/ZINC OXIDE OINT 71 GM JAR TOP SCH ×2 (08:02→21:15)
[2019-12-20] MEDS: MORPHINE 4 MG/1 ML VIAL IV PRN (09:26)
[2019-12-20] MEDS: AMIKACIN 1,000 MG in SODIUM CHLORIDE 0.9% 100 ML IV SCH (10:17)
[2019-12-20] MEDS: ENOXAPARIN 40 MG/0.4 ML SYRINGE SUBCUT SCH ×2 (11:53→21:15)
[2019-12-20] MEDS: AMPICILLIN INJ 2,000 MG in SODIUM CHLORIDE 0.9% 100 ML IV SCH ×3 (13:11→19:36)
[2019-12-21] MEDS: AMPICILLIN INJ 2,000 MG in SODIUM CHLORIDE 0.9% 100 ML IV SCH ×6 (01:45→22:11)
[2019-12-21] MEDS: VALPROIC ACID 250 MG/5 ML UDCUP PO SCH ×4 (04:30→22:12)
[2019-12-21 07:02] LABS: Basophils % 0.5 % (0.0-0.8); Eosinophils # 0.1 10*3/uL (0.0-0.87); Eosinophils % 5.4 % (0.00-10.9); Hematocrit 33.2 VOL% (42.0-52.0); Hemoglobin 10.4 GM/DL (14.0-18.0); Immature Granulocytes % 8.1 %; Immature Granulocytes Absolute 0.15 #; Lymphocytes # 0.5 10*3/uL (1.4-4.0); Lymphocytes % 28.1 % (21.2-54.2); Mean Corpuscular HGB Conc 31.3 GM/DL (32-36); Mean Corpuscular Volume 87.6 FL (87-102); Mean Platelet Volume 10.6 FL (9.6-12.0); Monocytes % 12.4 % (1.7-12.7); Neutrophils % 45.5 % (38.7-73.9); Platelet Count 204 T/CUMM (130-400); Red Blood Count 3.79 MC/CUMM (3.8-5.5); Red Cell Distribution Width 17.4 % (9.3-17.3); White Blood Count 1.9 T/CUMM (4-12)
[2019-12-21] MEDS: COLISTIMETHATE 150 MG VIAL RESP TX SCH ×3 (07:13→23:40)
[2019-12-21 07:23] LABS: Alanine Aminotransferase 114 U/L (16-61); Albumin 1.8 G/DL (3.4-5.0); Alkaline Phosphatase 217 U/L (45-117); Aspartate Amino Transferase 55 U/L (0-37); Bilirubin,Total < 0.39 MG/DL (0.2-1.0); Blood Urea Nitrogen 13 MG/DL (7-18); Calcium 9.1 MG/DL (8.5-10.1); Estimated Glom Filtration Rate 146 ML/MIN; Glucose 92 MG/DL (74-106); Osmolality,Calculated 269.1 MOS/KG (273-304); Total Protein 6.7 G/DL (6.4-8.3)
[2019-12-21 07:26] LABS: Band Neutrophils 1 % (0-10); Eosinophils 6 % (0-10); Hypochromasia 1+; Lymphocytes 30 % (20-55); Microcytosis 1+; Ovalocytes Slight; Platelet Estimate Adequate; Segmented Neutrophils 42 % (50-85); Total Cells Counted 100
[2019-12-21] MEDS: INSULIN LISPRO 100 UNIT/ML SUBCUT SCH (07:26)
[2019-12-21 07:27] LABS: Atypical Lymphocytes Few
[2019-12-21] MEDS: BICTEGRAV EMTRICIT TENOFOV ALA PO SCH (08:10)
[2019-12-21] MEDS: LIDOCAINE 5% PATCH TRANSDERM SCH (08:10)
[2019-12-21] MEDS: ZINC GLUCONATE 50 MG TABLET PO SCH (08:11)
[2019-12-21] MEDS: DEXAMETHASONE 4 MG/1 ML VIAL IV SCH (08:11)
[2019-12-21] MEDS: OMEPRAZOLE ODT 20 MG TABLET NG SCH (08:12)
[2019-12-21] MEDS: ASCORBIC ACID 500 MG TABLET PO SCH ×2 (08:12→22:12)
[2019-12-21] MEDS: MAGNESIUM OXIDE 400 MG TABLET PO SCH ×2 (08:12→22:11)
[2019-12-21] MEDS: MONTELUKAST 10 MG TABLET PO SCH ×2 (08:12→22:11)
[2019-12-21] MEDS: FERROUS SULFATE 325 MG TABLET PO SCH ×2 (08:12→22:11)
[2019-12-21] MEDS: SULFAMETHOX/TRIMETHOPRIM 800-160 MG TABLET PER TUBE SCH (08:12)
[2019-12-21] MEDS: CHOLECALCIFEROL 1,000 UNIT TABLET PO SCH (08:12)
[2019-12-21] MEDS: DESITIN 4OZ/NYSTATIN 15 GRAM MIXTURE PASTE TOP SCH ×2 (08:16→22:11)
[2019-12-21] MEDS: MENTHOL/ZINC OXIDE OINT 71 GM JAR TOP SCH ×2 (08:16→22:11)
[2019-12-21] MEDS ORDERED: ALBUTEROL/IPRATROPIUM 3 ML NEB RESP TX PRN (09:08)
[2019-12-21] MEDS: SULFAMETHOX/TRIMETHOPRIM 800-160 MG TABLET PO SCH (09:13)
[2019-12-21] MEDS: ALBUTEROL/IPRATROPIUM 3 ML NEB RESP TX SCH ×2 (10:41→19:34)
[2019-12-21] MEDS ORDERED: LORazepam 2 MG/1 ML VIAL ONE (10:55)
[2019-12-21] MEDS: LORazepam 2 MG/1 ML VIAL IV PRN (11:00)
[2019-12-21] MEDS: AMIKACIN 1,000 MG in SODIUM CHLORIDE 0.9% 100 ML IV SCH (11:12)
[2019-12-21] MEDS: ENOXAPARIN 40 MG/0.4 ML SYRINGE SUBCUT SCH ×2 (11:35→22:12)
[2019-12-21] MEDS ORDERED: SODIUM CHLORIDE 0.9% 500 ML IV ONE (15:28)
[2019-12-22] MEDS: AMPICILLIN INJ 2,000 MG in SODIUM CHLORIDE 0.9% 100 ML IV SCH ×7 (01:30→23:28)
[2019-12-22 04:11] LABS: Basophils % 0.4 % (0.0-0.8); Eosinophils # 0.1 10*3/uL (0.0-0.87); Eosinophils % 6.1 % (0.00-10.9); Hematocrit 35.9 VOL% (42.0-52.0); Hemoglobin 11.1 GM/DL (14.0-18.0); Immature Granulocytes % 11.8 %; Immature Granulocytes Absolute 0.27 #; Lymphocytes # 0.7 10*3/uL (1.4-4.0); Lymphocytes % 31.1 % (21.2-54.2); Mean Corpuscular HGB Conc 30.9 GM/DL (32-36); Mean Corpuscular Volume 87.8 FL (87-102); Mean Platelet Volume 10.2 FL (9.6-12.0); Monocytes % 18.9 % (1.7-12.7); Neutrophils % 31.7 % (38.7-73.9); Platelet Count 201 T/CUMM (130-400); Red Blood Count 4.09 MC/CUMM (3.8-5.5); Red Cell Distribution Width 17.6 % (9.3-17.3); White Blood Count 2.3 T/CUMM (4-12)
[2019-12-22] MEDS: VALPROIC ACID 250 MG/5 ML UDCUP PO SCH ×4 (04:19→21:58)
[2019-12-22 04:57] LABS: Alanine Aminotransferase 92 U/L (16-61); Albumin 1.5 G/DL (3.4-5.0); Alkaline Phosphatase 205 U/L (45-117); Aspartate Amino Transferase 36 U/L (0-37); Bilirubin,Total < 0.39 MG/DL (0.2-1.0); Blood Urea Nitrogen 14 MG/DL (7-18); Calcium 9.4 MG/DL (8.5-10.1); Estimated Glom Filtration Rate 138 ML/MIN; Glucose 84 MG/DL (74-106); Osmolality,Calculated 263.5 MOS/KG (273-304); Total Protein 6.8 G/DL (6.4-8.3)
[2019-12-22 05:28] LABS: Band Neutrophils 2 % (0-10); Eosinophils 10 % (0-10); Lymphocytes 39 % (20-55); Metamyelocytes 1 %; Nucleated Red Blood Cells 1 (0-5); Segmented Neutrophils 36 % (50-85); Total Cells Counted 100
[2019-12-22 05:29] LABS: Hypochromasia 1+; Microcytosis 1+
[2019-12-22 05:30] LABS: Anisocytosis 1+; Ovalocytes Slight
[2019-12-22] MEDS: LIDOCAINE 5% PATCH TRANSDERM SCH (08:03)
[2019-12-22] MEDS: DEXAMETHASONE 4 MG/1 ML VIAL IV SCH (08:04)
[2019-12-22] MEDS: SULFAMETHOX/TRIMETHOPRIM 800-160 MG TABLET PO SCH (08:05)
[2019-12-22] MEDS: MAGNESIUM OXIDE 400 MG TABLET PO SCH ×2 (08:05→20:15)
[2019-12-22] MEDS: MONTELUKAST 10 MG TABLET PO SCH ×2 (08:05→20:15)
[2019-12-22] MEDS: BICTEGRAV EMTRICIT TENOFOV ALA PO SCH (08:05)
[2019-12-22] MEDS: FERROUS SULFATE 325 MG TABLET PO SCH ×2 (08:06→20:15)
[2019-12-22] MEDS: CHOLECALCIFEROL 1,000 UNIT TABLET PO SCH (08:06)
[2019-12-22] MEDS: ZINC GLUCONATE 50 MG TABLET PO SCH (08:06)
[2019-12-22] MEDS: MENTHOL/ZINC OXIDE OINT 71 GM JAR TOP SCH ×2 (08:06→20:19)
[2019-12-22] MEDS: ASCORBIC ACID 500 MG TABLET PO SCH ×2 (08:06→20:15)
[2019-12-22] MEDS: OMEPRAZOLE ODT 20 MG TABLET NG SCH (08:06)
[2019-12-22] MEDS: DESITIN 4OZ/NYSTATIN 15 GRAM MIXTURE PASTE TOP SCH ×2 (08:07→20:19)
[2019-12-22] MEDS: ALBUTEROL/IPRATROPIUM 3 ML NEB RESP TX SCH ×2 (08:12→19:49)
[2019-12-22] MEDS: COLISTIMETHATE 150 MG VIAL RESP TX SCH ×2 (08:22→15:21)
[2019-12-22] MEDS: ENOXAPARIN 40 MG/0.4 ML SYRINGE SUBCUT SCH ×2 (12:22→23:07)
[2019-12-22] MEDS: AMIKACIN 1,000 MG in SODIUM CHLORIDE 0.9% 100 ML IV SCH (12:23)
[2019-12-22] MEDS: DOCUSATE SODIUM 100 MG CAPSULE PO SCH ×2 (13:01→20:15)
[2019-12-22] MEDS: oxyCODONE/ACETAMINOPHEN 5-325 MG TABLET PO PRN (20:15)
[2019-12-22] MEDS: LORazepam 2 MG/1 ML VIAL IV PRN (20:16)
[2019-12-23] MEDS: COLISTIMETHATE 150 MG VIAL RESP TX SCH ×4 (01:33→23:59)
[2019-12-23] MEDS: AMPICILLIN INJ 2,000 MG in SODIUM CHLORIDE 0.9% 100 ML IV SCH ×5 (04:23→20:39)
[2019-12-23] MEDS: VALPROIC ACID 250 MG/5 ML UDCUP PO SCH ×4 (04:24→22:06)
[2019-12-23 06:54] LABS: Calcium 9.8 MG/DL (8.5-10.1); Osmolality,Calculated 273.8 MOS/KG (273-304)
[2019-12-23] MEDS: ALBUTEROL/IPRATROPIUM 3 ML NEB RESP TX SCH ×2 (07:15→19:15)
[2019-12-23] MEDS: LIDOCAINE 5% PATCH TRANSDERM SCH (09:43)
[2019-12-23] MEDS: CHOLECALCIFEROL 1,000 UNIT TABLET PO SCH (09:44)
[2019-12-23] MEDS: OMEPRAZOLE ODT 20 MG TABLET NG SCH (09:44)
[2019-12-23] MEDS: SULFAMETHOX/TRIMETHOPRIM 800-160 MG TABLET PO SCH (09:44)
[2019-12-23] MEDS: DOCUSATE SODIUM 100 MG CAPSULE PO SCH ×2 (09:44→20:40)
[2019-12-23] MEDS: ASCORBIC ACID 500 MG TABLET PO SCH ×2 (09:44→20:40)
[2019-12-23] MEDS: FERROUS SULFATE 325 MG TABLET PO SCH ×2 (09:44→20:40)
[2019-12-23] MEDS: ZINC GLUCONATE 50 MG TABLET PO SCH (09:44)
[2019-12-23] MEDS: MONTELUKAST 10 MG TABLET PO SCH ×2 (09:44→20:40)
[2019-12-23] MEDS: DESITIN 4OZ/NYSTATIN 15 GRAM MIXTURE PASTE TOP SCH ×2 (09:45→20:43)
[2019-12-23] MEDS: MENTHOL/ZINC OXIDE OINT 71 GM JAR TOP SCH ×2 (09:45→20:43)
[2019-12-23] MEDS: BICTEGRAV EMTRICIT TENOFOV ALA PO SCH (09:45)
[2019-12-23] MEDS: MAGNESIUM OXIDE 400 MG TABLET PO SCH ×2 (09:45→20:40)
[2019-12-23] MEDS: DEXAMETHASONE 4 MG TABLET PO SCH (09:45)
[2019-12-23] MEDS: oxyCODONE/ACETAMINOPHEN 5-325 MG TABLET PO PRN ×2 (11:04→20:39)
[2019-12-23] MEDS: ENOXAPARIN 40 MG/0.4 ML SYRINGE SUBCUT SCH ×2 (14:19→22:06)
[2019-12-24] MEDS: AMPICILLIN INJ 2,000 MG in SODIUM CHLORIDE 0.9% 100 ML IV SCH ×6 (00:16→21:26)
[2019-12-24] MEDS: VALPROIC ACID 250 MG/5 ML UDCUP PO SCH ×4 (04:23→21:26)
[2019-12-24 05:03] LABS: Basophils % 0.4 % (0.0-0.8); Eosinophils # 0.1 10*3/uL (0.0-0.87); Eosinophils % 2.2 % (0.00-10.9); Hemoglobin 10.3 GM/DL (14.0-18.0); Immature Granulocytes % 9.4 %; Immature Granulocytes Absolute 0.21 #; Lymphocytes # 0.6 10*3/uL (1.4-4.0); Lymphocytes % 25.4 % (21.2-54.2); Mean Corpuscular HGB Conc 31.2 GM/DL (32-36); Mean Corpuscular Volume 86.6 FL (87-102); Mean Platelet Volume 10.3 FL (9.6-12.0); Monocytes % 26.8 % (1.7-12.7); Neutrophils % 35.8 % (38.7-73.9); Platelet Count 348 T/CUMM (130-400); Red Blood Count 3.81 MC/CUMM (3.8-5.5); Red Cell Distribution Width 17.1 % (9.3-17.3); White Blood Count 2.2 T/CUMM (4-12)
[2019-12-24 05:29] LABS: Band Neutrophils 3 % (0-10); Eosinophils 1 % (0-10); Lymphocytes 40 % (20-55); Metamyelocytes 2 %; Segmented Neutrophils 37 % (50-85); Total Cells Counted 100
[2019-12-24 05:30] LABS: Atypical Lymphocytes Few; Hypochromasia 1+; Microcytosis 1+
[2019-12-24 05:40] LABS: Alanine Aminotransferase 76 U/L (16-61); Albumin 1.9 G/DL (3.4-5.0); Alkaline Phosphatase 197 U/L (45-117); Aspartate Amino Transferase 25 U/L (0-37); Bilirubin,Total < 0.39 MG/DL (0.2-1.0); Blood Urea Nitrogen 19 MG/DL (7-18); Calcium 9.7 MG/DL (8.5-10.1); Estimated Glom Filtration Rate 138 ML/MIN; Glucose 80 MG/DL (74-106); Osmolality,Calculated 264.5 MOS/KG (273-304); Total Protein 6.9 G/DL (6.4-8.3)
[2019-12-24] MEDS: COLISTIMETHATE 150 MG VIAL RESP TX SCH ×3 (07:28→23:12)
[2019-12-24] MEDS: ALBUTEROL/IPRATROPIUM 3 ML NEB RESP TX SCH ×2 (07:36→20:43)
[2019-12-24] MEDS: DEXAMETHASONE 4 MG TABLET PO SCH (09:11)
[2019-12-24] MEDS: OMEPRAZOLE ODT 20 MG TABLET NG SCH (09:11)
[2019-12-24] MEDS: ZINC GLUCONATE 50 MG TABLET PO SCH (09:11)
[2019-12-24] MEDS: ASCORBIC ACID 500 MG TABLET PO SCH ×2 (09:11→21:26)
[2019-12-24] MEDS: CHOLECALCIFEROL 1,000 UNIT TABLET PO SCH (09:11)
[2019-12-24] MEDS: MONTELUKAST 10 MG TABLET PO SCH ×2 (09:12→21:26)
[2019-12-24] MEDS: DOCUSATE SODIUM 100 MG CAPSULE PO SCH ×2 (09:12→21:26)
[2019-12-24] MEDS: FERROUS SULFATE 325 MG TABLET PO SCH ×2 (09:12→21:26)
[2019-12-24] MEDS: BICTEGRAV EMTRICIT TENOFOV ALA PO SCH (09:12)
[2019-12-24] MEDS: SULFAMETHOX/TRIMETHOPRIM 800-160 MG TABLET PO SCH (09:12)
[2019-12-24] MEDS: MAGNESIUM OXIDE 400 MG TABLET PO SCH ×2 (09:12→21:26)
[2019-12-24] MEDS: MENTHOL/ZINC OXIDE OINT 71 GM JAR TOP SCH ×2 (09:13→21:26)
[2019-12-24] MEDS: DESITIN 4OZ/NYSTATIN 15 GRAM MIXTURE PASTE TOP SCH ×2 (09:13→21:26)
[2019-12-24] MEDS: LIDOCAINE 5% PATCH TRANSDERM SCH (09:13)
[2019-12-24] MEDS: APIXABAN 5 MG TABLET PO SCH ×2 (10:51→21:26)
[2019-12-24 10:52] LABS: Ferritin 824.8 ng/ml (26-388); Troponin I 0.019 NG/ML (0.00-0.045)
[2019-12-24] MEDS ORDERED: AMIKACIN 700 MG in SODIUM CHLORIDE 0.9% 100 ML IV SCH (12:30)
[2019-12-24] MEDS: oxyCODONE/ACETAMINOPHEN 5-325 MG TABLET PO PRN (14:09)
[2019-12-25] MEDS: AMPICILLIN INJ 2,000 MG in SODIUM CHLORIDE 0.9% 100 ML IV SCH ×6 (00:46→20:50)
[2019-12-25] MEDS: VALPROIC ACID 250 MG/5 ML UDCUP PO SCH ×4 (04:32→21:57)
[2019-12-25] MEDS: oxyCODONE/ACETAMINOPHEN 5-325 MG TABLET PO PRN ×3 (05:33→18:46)
[2019-12-25 07:02] LABS: Eosinophils % 0.7 % (0.00-10.9); Hematocrit 33.2 VOL% (42.0-52.0); Hemoglobin 10.5 GM/DL (14.0-18.0); Immature Granulocytes % 18.4 %; Immature Granulocytes Absolute 0.54 #; Lymphocytes # 0.8 10*3/uL (1.4-4.0); Lymphocytes % 26.5 % (21.2-54.2); Mean Corpuscular HGB Conc 31.6 GM/DL (32-36); Mean Corpuscular Volume 87.4 FL (87-102); Monocytes % 21.8 % (1.7-12.7); Neutrophils % 31.6 % (38.7-73.9); Platelet Count 386 T/CUMM (130-400); Red Cell Distribution Width 17.2 % (9.3-17.3); White Blood Count 2.9 T/CUMM (4-12)
[2019-12-25] MEDS: ALBUTEROL/IPRATROPIUM 3 ML NEB RESP TX SCH ×2 (07:15→20:45)
[2019-12-25] MEDS: COLISTIMETHATE 150 MG VIAL RESP TX SCH ×2 (07:15→15:30)
[2019-12-25 07:35] LABS: Calcium 9.8 MG/DL (8.5-10.1); Osmolality,Calculated 274.8 MOS/KG (273-304)
[2019-12-25 07:36] LABS: Ferritin 765.6 ng/ml (26-388); Troponin I 0.019 NG/ML (0.00-0.045)
[2019-12-25 07:39] LABS: Band Neutrophils 5 % (0-10); Eosinophils 2 % (0-10); Hypochromasia 1+; Lymphocytes 31 % (20-55); Platelet Estimate Adequate; Segmented Neutrophils 34 % (50-85); Total Cells Counted 100
[2019-12-25 07:40] LABS: Atypical Lymphocytes Few; Microcytosis 1+
[2019-12-25 07:42] LABS: Alanine Aminotransferase 62 U/L (16-61); Alkaline Phosphatase 200 U/L (45-117); Aspartate Amino Transferase 20 U/L (0-37); Bilirubin,Total < 0.39 MG/DL (0.2-1.0); Blood Urea Nitrogen 19 MG/DL (7-18); Calcium 9.5 MG/DL (8.5-10.1); Estimated Glom Filtration Rate 132 ML/MIN; Glucose 92 MG/DL (74-106); Osmolality,Calculated 276.7 MOS/KG (273-304); Total Protein 6.3 G/DL (6.4-8.3)
[2019-12-25] MEDS: LIDOCAINE 5% PATCH TRANSDERM SCH (10:06)
[2019-12-25] MEDS: MONTELUKAST 10 MG TABLET PO SCH ×2 (10:08→21:57)
[2019-12-25] MEDS: FERROUS SULFATE 325 MG TABLET PO SCH ×2 (10:09→21:57)
[2019-12-25] MEDS: DEXAMETHASONE 4 MG TABLET PO SCH (10:09)
[2019-12-25] MEDS: ASCORBIC ACID 500 MG TABLET PO SCH ×2 (10:09→21:56)
[2019-12-25] MEDS: ZINC GLUCONATE 50 MG TABLET PO SCH (10:09)
[2019-12-25] MEDS: APIXABAN 5 MG TABLET PO SCH ×2 (10:10→21:57)
[2019-12-25] MEDS: SULFAMETHOX/TRIMETHOPRIM 800-160 MG TABLET PO SCH (10:10)
[2019-12-25] MEDS: MAGNESIUM OXIDE 400 MG TABLET PO SCH ×2 (10:10→21:56)
[2019-12-25] MEDS: OMEPRAZOLE ODT 20 MG TABLET NG SCH (10:10)
[2019-12-25] MEDS: CHOLECALCIFEROL 1,000 UNIT TABLET PO SCH (10:10)
[2019-12-25] MEDS: DOCUSATE SODIUM 100 MG CAPSULE PO SCH ×3 (10:11→22:19)
[2019-12-25] MEDS: DESITIN 4OZ/NYSTATIN 15 GRAM MIXTURE PASTE TOP SCH ×3 (10:12→21:59)
[2019-12-25] MEDS: MENTHOL/ZINC OXIDE OINT 71 GM JAR TOP SCH ×2 (10:16→22:00)
[2019-12-25] MEDS: BICTEGRAV EMTRICIT TENOFOV ALA PO SCH ×2 (10:16→12:23)
[2019-12-26] MEDS: AMPICILLIN INJ 2,000 MG in SODIUM CHLORIDE 0.9% 100 ML IV SCH ×7 (01:15→23:59)
[2019-12-26] MEDS: COLISTIMETHATE 150 MG VIAL RESP TX SCH ×4 (01:25→22:32)
[2019-12-26] MEDS: VALPROIC ACID 250 MG/5 ML UDCUP PO SCH ×4 (04:14→21:30)
[2019-12-26 06:27] LABS: Basophils % 0.3 % (0.0-0.8); Eosinophils % 0.7 % (0.00-10.9); Hemoglobin 9.2 GM/DL (14.0-18.0); Immature Granulocytes Absolute 0.38 #; Lymphocytes # 0.5 10*3/uL (1.4-4.0); Lymphocytes % 18.4 % (21.2-54.2); Mean Corpuscular HGB Conc 31.7 GM/DL (32-36); Mean Corpuscular Volume 85.8 FL (87-102); Mean Platelet Volume 9.4 FL (9.6-12.0); Monocytes % 19.1 % (1.7-12.7); Neutrophils % 48.5 % (38.7-73.9); Platelet Count 381 T/CUMM (130-400); Red Blood Count 3.38 MC/CUMM (3.8-5.5); Red Cell Distribution Width 17.3 % (9.3-17.3); White Blood Count 2.9 T/CUMM (4-12)
[2019-12-26 06:50] LABS: Alanine Aminotransferase 50 U/L (16-61); Albumin 1.8 G/DL (3.4-5.0); Alkaline Phosphatase 194 U/L (45-117); Aspartate Amino Transferase 17 U/L (0-37); Blood Urea Nitrogen 25 MG/DL (7-18); Calcium 9.2 MG/DL (8.5-10.1); Estimated Glom Filtration Rate 116 ML/MIN; Ferritin 620.5 ng/ml (26-388); Glucose 111 MG/DL (74-106); Osmolality,Calculated 279.7 MOS/KG (273-304); Total Protein 6.2 G/DL (6.4-8.3); Troponin I < 0.015 NG/ML (0.00-0.045)
[2019-12-26 06:52] LABS: Calcium 9.1 MG/DL (8.5-10.1); Osmolality,Calculated 281.5 MOS/KG (273-304)
[2019-12-26 07:24] LABS: Atypical Lymphocytes Few; Band Neutrophils 6 % (0-10); Eosinophils 2 % (0-10); Hypochromasia 1+; Lymphocytes 25 % (20-55); Microcytosis 1+; Promyelocytes 1 %; Segmented Neutrophils 47 % (50-85); Total Cells Counted 100
[2019-12-26 07:32] LABS: Sedimentation Rate-Westergren 91 MM/HR (0-15)
[2019-12-26] MEDS: oxyCODONE/ACETAMINOPHEN 5-325 MG TABLET PO PRN (08:07)
[2019-12-26] MEDS: LIDOCAINE 5% PATCH TRANSDERM SCH (09:21)
[2019-12-26] MEDS: MORPHINE ER 30 MG TABLET PO SCH ×2 (09:22→21:30)
[2019-12-26] MEDS: ZINC GLUCONATE 50 MG TABLET PO SCH (09:23)
[2019-12-26] MEDS: DEXAMETHASONE 4 MG TABLET PO SCH (09:24)
[2019-12-26] MEDS: OMEPRAZOLE ODT 20 MG TABLET NG SCH (09:24)
[2019-12-26] MEDS: MONTELUKAST 10 MG TABLET PO SCH ×2 (09:24→21:30)
[2019-12-26] MEDS: CHOLECALCIFEROL 1,000 UNIT TABLET PO SCH (09:24)
[2019-12-26] MEDS: ASCORBIC ACID 500 MG TABLET PO SCH ×2 (09:24→21:30)
[2019-12-26] MEDS: MAGNESIUM OXIDE 400 MG TABLET PO SCH (09:24)
[2019-12-26] MEDS: DESITIN 4OZ/NYSTATIN 15 GRAM MIXTURE PASTE TOP SCH ×2 (09:25→19:30)
[2019-12-26] MEDS: MENTHOL/ZINC OXIDE OINT 71 GM JAR TOP SCH ×2 (09:25→21:30)
[2019-12-26] MEDS: APIXABAN 5 MG TABLET PO SCH ×2 (09:25→21:30)
[2019-12-26] MEDS: FERROUS SULFATE 325 MG TABLET PO SCH ×2 (09:25→21:30)
[2019-12-26] MEDS: SULFAMETHOX/TRIMETHOPRIM 800-160 MG TABLET PO SCH (09:25)
[2019-12-26] MEDS: DOCUSATE SODIUM 100 MG CAPSULE PO SCH (09:26)
[2019-12-26] MEDS: BICTEGRAV EMTRICIT TENOFOV ALA PO SCH (09:26)
[2019-12-26] MEDS ORDERED: ALBUTEROL/IPRATROPIUM 3 ML NEB RESP TX PRN (10:35)
[2019-12-26] MEDS: ALBUTEROL/IPRATROPIUM 3 ML NEB RESP TX SCH (10:36)
[2019-12-26] MEDS: MAGNESIUM CHLORIDE 64 MG TABLET PO SCH ×2 (15:41→21:30)
[2019-12-26] MEDS ORDERED: COLESTIPOL 1 GM TABLET PO SCH (21:00)
[2019-12-26] MEDS: PHENYLEPHRINE 0.25% SUPP RECTAL SCH (21:30)
[2019-12-27] MEDS: VALPROIC ACID 250 MG/5 ML UDCUP PO SCH ×4 (04:05→21:29)
[2019-12-27] MEDS: AMPICILLIN INJ 2,000 MG in SODIUM CHLORIDE 0.9% 100 ML IV SCH ×5 (04:05→20:47)
[2019-12-27] MEDS: COLESTIPOL 1 GM TABLET PO SCH ×2 (06:20→18:25)
[2019-12-27 07:03] LABS: Basophils % 0.5 % (0.0-0.8); Hematocrit 30.7 VOL% (42.0-52.0); Hemoglobin 9.5 GM/DL (14.0-18.0); Immature Granulocytes % 13.8 %; Immature Granulocytes Absolute 0.52 #; Lymphocytes # 0.9 10*3/uL (1.4-4.0); Lymphocytes % 23.1 % (21.2-54.2); Mean Corpuscular HGB Conc 30.9 GM/DL (32-36); Mean Corpuscular Volume 88.7 FL (87-102); Mean Platelet Volume 9.5 FL (9.6-12.0); Monocytes % 15.4 % (1.7-12.7); Neutrophils % 47.2 % (38.7-73.9); Platelet Count 419 T/CUMM (130-400); Red Blood Count 3.46 MC/CUMM (3.8-5.5); Red Cell Distribution Width 17.5 % (9.3-17.3); White Blood Count 3.8 T/CUMM (4-12)
[2019-12-27] MEDS: COLISTIMETHATE 150 MG VIAL RESP TX SCH ×2 (07:30→16:04)
[2019-12-27 07:34] LABS: Alanine Aminotransferase 43 U/L (16-61); Albumin 2.1 G/DL (3.4-5.0); Alkaline Phosphatase 203 U/L (45-117); Aspartate Amino Transferase 15 U/L (0-37); Bilirubin,Total < 0.39 MG/DL (0.2-1.0); Blood Urea Nitrogen 26 MG/DL (7-18); Calcium 9.7 MG/DL (8.5-10.1); Estimated Glom Filtration Rate 104 ML/MIN; Ferritin 669.3 ng/ml (26-388); Glucose 102 MG/DL (74-106); Troponin I < 0.015 NG/ML (0.00-0.045)
[2019-12-27 07:41] LABS: Calcium 9.6 MG/DL (8.5-10.1); Osmolality,Calculated 277.8 MOS/KG (273-304)
[2019-12-27 08:47] LABS: Band Neutrophils 3 % (0-10); Lymphocytes 26 % (20-55); Metamyelocytes 5 %; Myelocytes 2 %; Platelet Estimate Increased; Segmented Neutrophils 47 % (50-85); Total Cells Counted 100
[2019-12-27] MEDS: LIDOCAINE 5% PATCH TRANSDERM SCH (09:17)
[2019-12-27] MEDS: ASCORBIC ACID 500 MG TABLET PO SCH ×2 (09:18→20:53)
[2019-12-27] MEDS: FERROUS SULFATE 325 MG TABLET PO SCH ×2 (09:18→20:53)
[2019-12-27] MEDS: OMEPRAZOLE ODT 20 MG TABLET NG SCH (09:18)
[2019-12-27] MEDS: DEXAMETHASONE 4 MG TABLET PO SCH (09:18)
[2019-12-27] MEDS: CHOLECALCIFEROL 1,000 UNIT TABLET PO SCH (09:19)
[2019-12-27] MEDS: ZINC GLUCONATE 50 MG TABLET PO SCH (09:19)
[2019-12-27] MEDS: SULFAMETHOX/TRIMETHOPRIM 800-160 MG TABLET PO SCH (09:19)
[2019-12-27] MEDS: MORPHINE ER 30 MG TABLET PO SCH ×2 (09:19→20:54)
[2019-12-27] MEDS: MAGNESIUM CHLORIDE 64 MG TABLET PO SCH ×3 (09:19→20:53)
[2019-12-27] MEDS: APIXABAN 5 MG TABLET PO SCH ×2 (09:19→20:53)
[2019-12-27] MEDS: MONTELUKAST 10 MG TABLET PO SCH ×2 (09:19→20:53)
[2019-12-27] MEDS: BICTEGRAV EMTRICIT TENOFOV ALA PO SCH (09:20)
[2019-12-27] MEDS: MENTHOL/ZINC OXIDE OINT 71 GM JAR TOP SCH ×2 (09:20→20:53)
[2019-12-27] MEDS: DESITIN 4OZ/NYSTATIN 15 GRAM MIXTURE PASTE TOP SCH ×2 (09:20→20:53)
[2019-12-27] MEDS: PHENYLEPHRINE 0.25% SUPP RECTAL SCH (10:32)
[2019-12-27] MEDS: POTASSIUM CHLORIDE RIDER 10 MEQ in PREMIX 1 EACH IV PRN (10:41)
[2019-12-27] MEDS ORDERED: MORPHINE 4 MG/1 ML VIAL IV PRN (19:14)
[2019-12-28] MEDS: COLISTIMETHATE 150 MG VIAL RESP TX SCH ×4 (03:02→23:54)
[2019-12-28] MEDS: VALPROIC ACID 250 MG/5 ML UDCUP PO SCH ×3 (04:11→17:29)
[2019-12-28 05:54] LABS: Basophils % 0.4 % (0.0-0.8); Hematocrit 31.4 VOL% (42.0-52.0); Hemoglobin 9.7 GM/DL (14.0-18.0); Immature Granulocytes % 14.5 %; Immature Granulocytes Absolute 0.67 #; Lymphocytes # 0.8 10*3/uL (1.4-4.0); Lymphocytes % 17.5 % (21.2-54.2); Mean Corpuscular HGB Conc 30.9 GM/DL (32-36); Mean Corpuscular Volume 87.5 FL (87-102); Mean Platelet Volume 9.7 FL (9.6-12.0); Monocytes % 20.1 % (1.7-12.7); Neutrophils % 47.5 % (38.7-73.9); Platelet Count 453 T/CUMM (130-400); Red Blood Count 3.59 MC/CUMM (3.8-5.5); Red Cell Distribution Width 17.8 % (9.3-17.3); White Blood Count 4.6 T/CUMM (4-12)
[2019-12-28] MEDS: COLESTIPOL 1 GM TABLET PO SCH ×2 (06:09→18:05)
[2019-12-28 06:18] LABS: Calcium 9.4 MG/DL (8.5-10.1); Osmolality,Calculated 276.8 MOS/KG (273-304)
[2019-12-28 06:34] LABS: Alanine Aminotransferase 35 U/L (16-61); Albumin 2.2 G/DL (3.4-5.0); Alkaline Phosphatase 190 U/L (45-117); Aspartate Amino Transferase 16 U/L (0-37); Bilirubin,Total < 0.39 MG/DL (0.2-1.0); Blood Urea Nitrogen 23 MG/DL (7-18); Calcium 9.1 MG/DL (8.5-10.1); Estimated Glom Filtration Rate 116 ML/MIN; Ferritin 665.9 ng/ml (26-388); Glucose 87 MG/DL (74-106); Troponin I < 0.015 NG/ML (0.00-0.045)
[2019-12-28] MEDS ORDERED: AMPICILLIN INJ 2,000 MG in SODIUM CHLORIDE 0.9% 100 ML IV SCH ×2 (07:00→08:00)
[2019-12-28 07:05] LABS: Band Neutrophils 8 % (0-10); Lymphocytes 20 % (20-55); Metamyelocytes 1 %; Myelocytes 2 %; Segmented Neutrophils 48 % (50-85); Total Cells Counted 100
[2019-12-28 07:06] LABS: Hypochromasia 1+; Microcytosis 1+
[2019-12-28 07:07] LABS: Atypical Lymphocytes Few
[2019-12-28] MEDS ORDERED: AMPICILLIN IV SCH (08:00)
[2019-12-28] MEDS: SULFAMETHOX/TRIMETHOPRIM 800-160 MG TABLET PO SCH (08:44)
[2019-12-28] MEDS: MENTHOL/ZINC OXIDE OINT 71 GM JAR TOP SCH ×2 (08:44→21:25)
[2019-12-28] MEDS: APIXABAN 5 MG TABLET PO SCH ×2 (08:44→21:26)
[2019-12-28] MEDS: DEXAMETHASONE 4 MG TABLET PO SCH (08:44)
[2019-12-28] MEDS: FERROUS SULFATE 325 MG TABLET PO SCH ×2 (08:44→21:26)
[2019-12-28] MEDS: DESITIN 4OZ/NYSTATIN 15 GRAM MIXTURE PASTE TOP SCH ×2 (08:45→21:26)
[2019-12-28] MEDS: ZINC GLUCONATE 50 MG TABLET PO SCH (08:45)
[2019-12-28] MEDS: MONTELUKAST 10 MG TABLET PO SCH ×2 (08:45→21:26)
[2019-12-28] MEDS: CHOLECALCIFEROL 1,000 UNIT TABLET PO SCH (08:45)
[2019-12-28] MEDS: LIDOCAINE 5% PATCH TRANSDERM SCH (08:45)
[2019-12-28] MEDS: MORPHINE ER 30 MG TABLET PO SCH ×2 (08:45→21:26)
[2019-12-28] MEDS: ASCORBIC ACID 500 MG TABLET PO SCH ×2 (08:45→21:26)
[2019-12-28] MEDS: MAGNESIUM CHLORIDE 64 MG TABLET PO SCH ×3 (08:45→21:26)
[2019-12-28] MEDS: OMEPRAZOLE ODT 20 MG TABLET NG SCH (08:45)
[2019-12-28] MEDS: BICTEGRAV EMTRICIT TENOFOV ALA PO SCH (09:57)
[2019-12-28] MEDS: AMPICILLIN INJ 2,000 MG in SODIUM CHLORIDE 0.9% 100 ML IV SCH ×4 (11:05→23:27)
[2019-12-29] MEDS: VALPROIC ACID 250 MG/5 ML UDCUP PO SCH ×3 (02:17→17:29)
[2019-12-29] MEDS: AMPICILLIN INJ 2,000 MG in SODIUM CHLORIDE 0.9% 100 ML IV SCH ×6 (02:17→22:11)
[2019-12-29 05:10] LABS: Basophils % 0.2 % (0.0-0.8); Eosinophils % 0.2 % (0.00-10.9); Hematocrit 32.8 VOL% (42.0-52.0); Immature Granulocytes % 14.6 %; Immature Granulocytes Absolute 0.91 #; Lymphocytes # 0.9 10*3/uL (1.4-4.0); Lymphocytes % 14.9 % (21.2-54.2); Mean Corpuscular HGB Conc 30.5 GM/DL (32-36); Mean Corpuscular Volume 89.4 FL (87-102); Mean Platelet Volume 9.6 FL (9.6-12.0); Monocytes % 19.3 % (1.7-12.7); Neutrophils % 50.8 % (38.7-73.9); Platelet Count 489 T/CUMM (130-400); Red Blood Count 3.67 MC/CUMM (3.8-5.5); Red Cell Distribution Width 18.3 % (9.3-17.3); White Blood Count 6.2 T/CUMM (4-12)
[2019-12-29 05:41] LABS: Alanine Aminotransferase 30 U/L (16-61); Albumin 2.1 G/DL (3.4-5.0); Alkaline Phosphatase 200 U/L (45-117); Aspartate Amino Transferase 26 U/L (0-37); Blood Urea Nitrogen 25 MG/DL (7-18); Estimated Glom Filtration Rate 104 ML/MIN; Ferritin 639.3 ng/ml (26-388); Glucose 72 MG/DL (74-106); Osmolality,Calculated 277.7 MOS/KG (273-304); Total Protein 6.4 G/DL (6.4-8.3); Troponin I < 0.015 NG/ML (0.00-0.045)
[2019-12-29 05:49] LABS: Band Neutrophils 7 % (0-10); Eosinophils 1 % (0-10); Hypochromasia 1+; Lymphocytes 17 % (20-55); Platelet Estimate Adequate; Segmented Neutrophils 55 % (50-85); Total Cells Counted 100
[2019-12-29 05:50] LABS: Atypical Lymphocytes Few; Microcytosis 1+
[2019-12-29] MEDS: COLISTIMETHATE 150 MG VIAL RESP TX SCH ×3 (07:12→23:00)
[2019-12-29 08:22] LABS: Sedimentation Rate-Westergren 67 MM/HR (0-15)
[2019-12-29] MEDS: MENTHOL/ZINC OXIDE OINT 71 GM JAR TOP SCH ×2 (08:55→21:14)
[2019-12-29] MEDS: LIDOCAINE 5% PATCH TRANSDERM SCH (08:55)
[2019-12-29] MEDS: COLESTIPOL 1 GM TABLET PO SCH ×2 (08:55→17:30)
[2019-12-29] MEDS: FERROUS SULFATE 325 MG TABLET PO SCH ×2 (08:56→21:13)
[2019-12-29] MEDS: DEXAMETHASONE 4 MG TABLET PO SCH (08:56)
[2019-12-29] MEDS: APIXABAN 5 MG TABLET PO SCH ×2 (08:56→21:13)
[2019-12-29] MEDS: ZINC GLUCONATE 50 MG TABLET PO SCH (08:57)
[2019-12-29] MEDS: MAGNESIUM CHLORIDE 64 MG TABLET PO SCH ×3 (08:57→21:13)
[2019-12-29] MEDS: CHOLECALCIFEROL 1,000 UNIT TABLET PO SCH (08:57)
[2019-12-29] MEDS: MORPHINE ER 30 MG TABLET PO SCH ×2 (08:57→21:12)
[2019-12-29] MEDS: ASCORBIC ACID 500 MG TABLET PO SCH ×2 (08:57→21:13)
[2019-12-29] MEDS: MONTELUKAST 10 MG TABLET PO SCH ×2 (08:57→21:12)
[2019-12-29] MEDS: DESITIN 4OZ/NYSTATIN 15 GRAM MIXTURE PASTE TOP SCH ×2 (08:57→21:14)
[2019-12-29] MEDS: OMEPRAZOLE ODT 20 MG TABLET NG SCH (08:57)
[2019-12-29] MEDS: ELVITEGRAVIR PO SCH (19:00)
[2019-12-29] MEDS: COBICISTAT PO SCH (19:00)
[2019-12-29] MEDS: TENOFOVIR ALAFENAMIDE PO SCH (19:00)
[2019-12-29] MEDS: EMTRICITABINE PO SCH (19:00)
[2019-12-30] MEDS: VALPROIC ACID 250 MG/5 ML UDCUP PO SCH ×3 (01:55→16:35)
[2019-12-30] MEDS: AMPICILLIN INJ 2,000 MG in SODIUM CHLORIDE 0.9% 100 ML IV SCH ×6 (02:04→23:31)
[2019-12-30 05:45] LABS: Basophils % 0.3 % (0.0-0.8); Eosinophils % 0.1 % (0.00-10.9); Hematocrit 29.3 VOL% (42.0-52.0); Hemoglobin 9.1 GM/DL (14.0-18.0); Immature Granulocytes % 14.2 %; Immature Granulocytes Absolute 1.08 #; Lymphocytes % 13.3 % (21.2-54.2); Mean Corpuscular HGB Conc 31.1 GM/DL (32-36); Mean Corpuscular Volume 89.3 FL (87-102); Mean Platelet Volume 9.3 FL (9.6-12.0); Monocytes % 18.4 % (1.7-12.7); Neutrophils % 53.7 % (38.7-73.9); Platelet Count 422 T/CUMM (130-400); Red Blood Count 3.28 MC/CUMM (3.8-5.5); Red Cell Distribution Width 18.1 % (9.3-17.3); White Blood Count 7.6 T/CUMM (4-12)
[2019-12-30 05:57] LABS: Calcium 8.7 MG/DL (8.5-10.1); Osmolality,Calculated 276.7 MOS/KG (273-304)
[2019-12-30 06:06] LABS: Band Neutrophils 3 % (0-10); Hypochromasia 1+; Lymphocytes 13 % (20-55); Myelocytes 1 %; Platelet Estimate Adequate; Segmented Neutrophils 72 % (50-85); Total Cells Counted 100
[2019-12-30 06:07] LABS: Microcytosis 1+
[2019-12-30 06:09] LABS: Alanine Aminotransferase 25 U/L (16-61); Albumin 1.7 G/DL (3.4-5.0); Alkaline Phosphatase 176 U/L (45-117); Aspartate Amino Transferase 13 U/L (0-37); Blood Urea Nitrogen 22 MG/DL (7-18); Calcium 9.1 MG/DL (8.5-10.1); Estimated Glom Filtration Rate 115 ML/MIN; Ferritin 586.8 ng/ml (26-388); Glucose 81 MG/DL (74-106); Total Protein 5.9 G/DL (6.4-8.3); Troponin I < 0.015 NG/ML (0.00-0.045)
[2019-12-30] MEDS ORDERED: POTASSIUM CHLORIDE 20 MEQ TABLET PO ONE (07:09)
[2019-12-30] MEDS: COLISTIMETHATE 150 MG VIAL RESP TX SCH ×2 (07:46→15:21)
[2019-12-30 07:50] LABS: Sedimentation Rate-Westergren 68 MM/HR (0-15)
[2019-12-30] MEDS: LIDOCAINE 5% PATCH TRANSDERM SCH (08:17)
[2019-12-30] MEDS: COLESTIPOL 1 GM TABLET PO SCH ×2 (08:18→18:05)
[2019-12-30] MEDS: DEXAMETHASONE 4 MG TABLET PO SCH (08:19)
[2019-12-30] MEDS: ASCORBIC ACID 500 MG TABLET PO SCH ×2 (08:19→21:42)
[2019-12-30] MEDS: OMEPRAZOLE ODT 20 MG TABLET NG SCH (08:19)
[2019-12-30] MEDS: MONTELUKAST 10 MG TABLET PO SCH ×2 (08:19→21:42)
[2019-12-30] MEDS: MAGNESIUM CHLORIDE 64 MG TABLET PO SCH ×3 (08:19→21:42)
[2019-12-30] MEDS: ZINC GLUCONATE 50 MG TABLET PO SCH (08:19)
[2019-12-30] MEDS: FERROUS SULFATE 325 MG TABLET PO SCH ×2 (08:20→21:42)
[2019-12-30] MEDS: APIXABAN 5 MG TABLET PO SCH ×2 (08:20→21:42)
[2019-12-30] MEDS: CHOLECALCIFEROL 1,000 UNIT TABLET PO SCH (08:20)
[2019-12-30] MEDS: COBICISTAT PO SCH (08:21)
[2019-12-30] MEDS: TENOFOVIR ALAFENAMIDE PO SCH (08:21)
[2019-12-30] MEDS: DESITIN 4OZ/NYSTATIN 15 GRAM MIXTURE PASTE TOP SCH ×2 (08:21→22:15)
[2019-12-30] MEDS: ELVITEGRAVIR PO SCH (08:21)
[2019-12-30] MEDS: EMTRICITABINE PO SCH (08:21)
[2019-12-30] MEDS: MORPHINE ER 30 MG TABLET PO SCH ×2 (08:30→21:42)
[2019-12-30] MEDS: MENTHOL/ZINC OXIDE OINT 71 GM JAR TOP SCH ×2 (08:57→22:15)
[2019-12-30] MEDS: ATOVAQUONE 750 MG/5 ML PO SCH (16:06)
[2019-12-31] MEDS: VALPROIC ACID 250 MG/5 ML UDCUP PO SCH ×3 (01:35→17:53)
[2019-12-31] MEDS: COLISTIMETHATE 150 MG VIAL RESP TX SCH ×3 (01:36→15:15)
[2019-12-31] MEDS: AMPICILLIN INJ 2,000 MG in SODIUM CHLORIDE 0.9% 100 ML IV SCH ×6 (03:58→23:49)
[2019-12-31] MEDS: APIXABAN 5 MG TABLET PO SCH ×2 (09:43→21:08)
[2019-12-31] MEDS: ASCORBIC ACID 500 MG TABLET PO SCH ×2 (09:44→21:07)
[2019-12-31] MEDS: CHOLECALCIFEROL 1,000 UNIT TABLET PO SCH (09:45)
[2019-12-31] MEDS: ZINC GLUCONATE 50 MG TABLET PO SCH (09:45)
[2019-12-31] MEDS: FERROUS SULFATE 325 MG TABLET PO SCH ×2 (09:45→21:08)
[2019-12-31] MEDS: DEXAMETHASONE 4 MG TABLET PO SCH (09:45)
[2019-12-31] MEDS: COLESTIPOL 1 GM TABLET PO SCH ×2 (09:45→17:54)
[2019-12-31] MEDS: OMEPRAZOLE ODT 20 MG TABLET NG SCH (09:45)
[2019-12-31] MEDS: MONTELUKAST 10 MG TABLET PO SCH ×2 (09:46→21:08)
[2019-12-31] MEDS: MAGNESIUM CHLORIDE 64 MG TABLET PO SCH ×3 (09:46→21:08)
[2019-12-31] MEDS: LIDOCAINE 5% PATCH TRANSDERM SCH (09:46)
[2019-12-31] MEDS: COBICISTAT PO SCH (09:49)
[2019-12-31] MEDS: ATOVAQUONE 750 MG/5 ML PO SCH (09:49)
[2019-12-31] MEDS: TENOFOVIR ALAFENAMIDE PO SCH (09:49)
[2019-12-31] MEDS: ELVITEGRAVIR PO SCH (09:49)
[2019-12-31] MEDS: EMTRICITABINE PO SCH (09:49)
[2019-12-31] MEDS: DESITIN 4OZ/NYSTATIN 15 GRAM MIXTURE PASTE TOP SCH ×2 (09:49→21:15)
[2019-12-31] MEDS: MENTHOL/ZINC OXIDE OINT 71 GM JAR TOP SCH ×2 (09:49→21:15)
[2019-12-31] MEDS: MORPHINE ER 30 MG TABLET PO SCH ×2 (09:54→21:07)
[2020-01-01] MEDS: COLISTIMETHATE 150 MG VIAL RESP TX SCH ×2 (00:13→07:25)
[2020-01-01] MEDS: VALPROIC ACID 250 MG/5 ML UDCUP PO SCH ×2 (02:02→08:56)
[2020-01-01] MEDS: AMPICILLIN INJ 2,000 MG in SODIUM CHLORIDE 0.9% 100 ML IV SCH ×3 (03:23→14:08)
[2020-01-01 08:09] VITALS: BP 117/65
[2020-01-01 08:14] LABS: Basophils % 0.2 % (0.0-0.8); Hemoglobin 10.5 GM/DL (14.0-18.0); Immature Granulocytes % 9.8 %; Immature Granulocytes Absolute 1.45 #; Lymphocytes % 6.8 % (21.2-54.2); Mean Corpuscular HGB Conc 30.9 GM/DL (32-36); Mean Corpuscular Volume 89.7 FL (87-102); Mean Platelet Volume 9.8 FL (9.6-12.0); Monocytes % 8.6 % (1.7-12.7); Neutrophils % 74.6 % (38.7-73.9); Platelet Count 448 T/CUMM (130-400); Red Blood Count 3.79 MC/CUMM (3.8-5.5); Red Cell Distribution Width 18.6 % (9.3-17.3); White Blood Count 14.8 T/CUMM (4-12)
[2020-01-01 08:32] LABS: Band Neutrophils 1 % (0-10); Hypochromasia Slight; Lymphocytes 2 % (20-55); Platelet Estimate Adequate; Segmented Neutrophils 84 % (50-85); Total Cells Counted 100
[2020-01-01 08:33] LABS: Microcytosis 1+
[2020-01-01] MEDS: MORPHINE ER 30 MG TABLET PO SCH (08:49)
[2020-01-01] MEDS: ZINC GLUCONATE 50 MG TABLET PO SCH (08:50)
[2020-01-01] MEDS: MAGNESIUM CHLORIDE 64 MG TABLET PO SCH (08:50)
[2020-01-01] MEDS: ASCORBIC ACID 500 MG TABLET PO SCH (08:50)
[2020-01-01] MEDS: COLESTIPOL 1 GM TABLET PO SCH (08:50)
[2020-01-01] MEDS: APIXABAN 5 MG TABLET PO SCH (08:50)
[2020-01-01] MEDS: CHOLECALCIFEROL 1,000 UNIT TABLET PO SCH (08:50)
[2020-01-01] MEDS: FERROUS SULFATE 325 MG TABLET PO SCH (08:50)
[2020-01-01] MEDS: MONTELUKAST 10 MG TABLET PO SCH (08:51)
[2020-01-01] MEDS: LIDOCAINE 5% PATCH TRANSDERM SCH (08:51)
[2020-01-01] MEDS: DEXAMETHASONE 4 MG TABLET PO SCH (08:51)
[2020-01-01 08:56] LABS: Alanine Aminotransferase 21 U/L (16-61); Albumin 1.8 G/DL (3.4-5.0); Alkaline Phosphatase 187 U/L (45-117); Aspartate Amino Transferase 18 U/L (0-37); Bilirubin,Total < 0.39 MG/DL (0.2-1.0); Blood Urea Nitrogen 23 MG/DL (7-18); Calcium 8.8 MG/DL (8.5-10.1); Estimated Glom Filtration Rate 138 ML/MIN; Ferritin 623.2 ng/ml (26-388); Glucose 103 MG/DL (74-106); Osmolality,Calculated 280.5 MOS/KG (273-304); Total Protein 6.1 G/DL (6.4-8.3); Troponin I < 0.015 NG/ML (0.00-0.045)
[2020-01-01] MEDS: ELVITEGRAVIR PO SCH (08:56)
[2020-01-01] MEDS: DESITIN 4OZ/NYSTATIN 15 GRAM MIXTURE PASTE TOP SCH (08:56)
[2020-01-01] MEDS: COBICISTAT PO SCH (08:56)
[2020-01-01] MEDS: TENOFOVIR ALAFENAMIDE PO SCH (08:56)
[2020-01-01] MEDS: ATOVAQUONE 750 MG/5 ML PO SCH (08:56)
[2020-01-01] MEDS: MENTHOL/ZINC OXIDE OINT 71 GM JAR TOP SCH (08:56)
[2020-01-01] MEDS: EMTRICITABINE PO SCH (08:56)
[2020-01-01 09:14] LABS: Sedimentation Rate-Westergren 50 MM/HR (0-15)
[2020-01-01] MEDS: OMEPRAZOLE ODT 20 MG TABLET NG SCH (13:57)
== END 2020-01-01 14:31 | disposition home health service (06) | DRG 974 ==
LOC: N.ED 22:15 → SUPCPDRO 22:53 → N.EDINP 22:53 → SUATTDRO 22:53 → N.CC 23:54 → N.TELEN 12-22 22:02
PROVIDERS: ADMIT Family Medicine; ATTEND Hospitalist